=== PATIENT | female | born 1950 | race African-American/Black ===

== ENCOUNTER 2020-10-12 12:23 | Inpatient (IN) | payer OTHER ==
[~2020-10-12] VITALS: Ht 167.6 cm; Wt 155.7 kg
[~2020-10-12 12:23] MED LIST: HYDR12.55 PO; LISI2.5T47 PO
[2020-10-12 13:45] LABS: Eosinophils # (auto) 0 10 ^3/uL (0-0.8); Hematocrit 16.7 % (36.0-46.0); White Blood Cell 7.1 10^3/uL (4.4-10.8)
[2020-10-12 13:48] LABS: Basophils # (auto) 0 10 ^3/uL (0-0.2); Basophils % (auto) 0.7 % (0.0-2.0); Eosinophils % (auto) 0.2 % (0.0-7.0); Lymphocytes # (auto) 0.5 10 ^3/uL (0.4-5.4); Lymphocytes % (auto) 7.4 % (10.0-50.0); Mean Corpuscular Hgb Conc. 25.8 g/dL (32.0-36.0); Mean Corpuscular Volume 54.2 fL (80.0-100.0); Monocytes # (auto) 0.6 10 ^3/uL (0-1.3); Monocytes % (auto) 8.8 % (0.0-12.0); Neutrophils # (auto) 5.9 10 ^3/uL (1.6-8.6); Neutrophils % (auto) 82.9 % (37.0-80.0); Platelet Count (auto) 271 10^3/uL (140-450); Red Blood Cells 3.08 10^6/uL (4.0-5.20)
[2020-10-12 13:50] LABS: Nucleated Red Blood Cells % 4.1 %
[2020-10-12 13:51] LABS: Red Cell Distribution Width 22.7 % (11.8-14.3)
[2020-10-12 13:53] LABS: Hemoglobin 4.3 g/dL (12.2-16.2)
[2020-10-12 14:04] LABS: INR 1.25 (0.9-1.15)
[2020-10-12 14:05] LABS: Albumin 2.8 g/dL (3.4-5.0); Calcium 8.1 mg/dL (8.5-10.1); Magnesium 2.1 mg/dL (1.6-2.6); Potassium 3.3 mmol/L (3.5-5.1)
[2020-10-12 14:11] LABS: BUN/Creatinine Ratio 9.3; Total Protein 6.4 g/dL (6.4-8.2)
[2020-10-12 14:39] LABS: Basophils # (auto) 0.1 10 ^3/uL (0-0.2); Eosinophils # (auto) 0 10 ^3/uL (0-0.8); Eosinophils % (auto) 0.2 % (0.0-7.0); Monocytes # (auto) 0.8 10 ^3/uL (0-1.3); White Blood Cell 8.7 10^3/uL (4.4-10.8)
[2020-10-12 14:41] LABS: Basophils % (auto) 0.9 % (0.0-2.0); Lymphocytes # (auto) 1.3 10 ^3/uL (0.4-5.4); Lymphocytes % (auto) 15.2 % (10.0-50.0); Mean Corpuscular Hemoglobin 14.7 pg (28.0-32.0); Mean Corpuscular Hgb Conc. 27.1 g/dL (32.0-36.0); Mean Corpuscular Volume 54.4 fL (80.0-100.0); Monocytes % (auto) 9.1 % (0.0-12.0); Neutrophils # (auto) 6.5 10 ^3/uL (1.6-8.6); Neutrophils % (auto) 74.6 % (37.0-80.0); Nucleated Red Blood Cells % 0.9 %; Platelet Count (auto) 289 10^3/uL (140-450); Red Blood Cells 3.31 10^6/uL (4.0-5.20)
[2020-10-12 14:43] LABS: Red Cell Distribution Width 22.5 % (11.8-14.3)
[2020-10-12 14:48] LABS: Hemoglobin 4.9 g/dL (12.2-16.2)
[2020-10-12] MEDS ORDERED: HYDROcodone-ACET 10/325MG TAB PO ONE (16:45)
[2020-10-12] MEDS ORDERED: ONDANSETRON HCL 4 MG/2 ML VIAL IV PRN (19:00)
[2020-10-12] MEDS ORDERED: NITROGLYCERIN 0.4 MG SL TAB SL PRN (19:00)
[2020-10-12] MEDS ORDERED: hydrALAZINE HCL 20 MG/ML VL IV PRN (19:00)
[2020-10-12] MEDS ORDERED: DOCUSATE SOD 100 MG CAP PO PRN (19:00)
[2020-10-12] MEDS ORDERED: FUROSEMIDE 20 MG/2 ML VIAL IV ONE (19:00)
[2020-10-12] MEDS ORDERED: MORPHINE SULF INJ 2 MG/ML SYRINGE 1ML IV PRN (19:00)
[2020-10-12] MEDS ORDERED: POTASSIUM CHL 20 Meq TABLET PO ONE (19:00)
[2020-10-12 19:34] LABS: Urine Bacteria FEW /hpf (None Seen); Urine Blood Negative /uL (Negative); Urine Hyaline Cast FEW /lpf (0 - 2); Urine Mucus FEW (None Seen); Urine Specific Gravity 1.017 (1.001-1.035); Urine WBC 1 /hpf (0 - 5)
[2020-10-12 20:21] VITALS: BP 149/81
[2020-10-12 20:40] VITALS: BP 159/79
[2020-10-12 21:33] LABS: % Iron Saturation 2.2 % (15-50)
[2020-10-12] MEDS: CARVEDILOL 3.125 MG TAB PO SCH ×2 (22:55→23:55)
[2020-10-12 23:28] VITALS: BP 137/75
[2020-10-12 23:45] VITALS: BP 149/64
[2020-10-13] VITALS (10 sets, daily range): BP systolic 113–157; BP diastolic 55–78
[2020-10-13] MEDS: MORPHINE SULF INJ 2 MG/ML SYRINGE 1ML IV PRN (02:18)
--- NOTE | 2020-10-13 03:33 | NUR ---
arrival note pt arrived via stretcher. pt transferred to hospital bed. pt attached to 4L mo. no complaints of pain at this time.
[2020-10-13] MEDS ORDERED: PNEUMOCOCCAL VACC POLYS 25 MCG/0.5 ML VIAL IM ONE (05:00)
[2020-10-13] MEDS ORDERED: LISI-646 PO (05:16)
[2020-10-13] MEDS ORDERED: ATO40T PO (05:17)
--- NOTE | 2020-10-13 07:00 | NUR ---
closing note pt resting in semi fowlers with eyes closed. no s/s of pain or distress. endorsed care to day shift RN.
--- NOTE | 2020-10-13 07:30 | NUR ---
Opening Shift Note RECEIVED REPORT FROM NOC RN. Assumed care of patient, awake and alert. PATIENT ON OXYGEN AT 2 LPM VIA NASAL CANNULA WITH no S/S of distress/SOB or pain. BED IN LOWEST, LOCKED POSITION WITH SIDERAILS UP x2 AND CALL LIGHT WITHIN REACH. Instructed on POC and to call for assist PRN, will continue to monitor for changes Q1hr and PRN.
[2020-10-13 08:45] LABS: Eosinophils # (auto) 0.1 10 ^3/uL (0-0.8); Mean Corpuscular Hemoglobin 16.7 pg (28.0-32.0); Mean Corpuscular Volume 60.8 fL (80.0-100.0); White Blood Cell 10.1 10^3/uL (4.4-10.8)
[2020-10-13 08:48] LABS: Basophils # (auto) 0.1 10 ^3/uL (0-0.2); Basophils % (auto) 0.5 % (0.0-2.0); Eosinophils % (auto) 0.5 % (0.0-7.0); Hematocrit 22.5 % (36.0-46.0); Lymphocytes # (auto) 0.8 10 ^3/uL (0.4-5.4); Lymphocytes % (auto) 8.4 % (10.0-50.0); Mean Corpuscular Hgb Conc. 27.4 g/dL (32.0-36.0); Monocytes # (auto) 0.9 10 ^3/uL (0-1.3); Monocytes % (auto) 8.8 % (0.0-12.0); Neutrophils # (auto) 8.3 10 ^3/uL (1.6-8.6); Neutrophils % (auto) 81.8 % (37.0-80.0); Nucleated Red Blood Cells % 0.1 %; Platelet Count (auto) 219 10^3/uL (140-450)
[2020-10-13 08:55] LABS: Red Cell Distribution Width 30.2 % (11.8-14.3)
[2020-10-13 08:56] LABS: Hemoglobin 6.2 g/dL (12.2-16.2)
--- NOTE | 2020-10-13 08:57 | NUR ---
CRITICAL LAB HGB 6.2
[2020-10-13 08:58] LABS: Calcium 8.3 mg/dL (8.5-10.1); Potassium 3.6 mmol/L (3.5-5.1)
[2020-10-13 09:05] LABS: BUN/Creatinine Ratio 9.4; Magnesium 2.4 mg/dL (1.6-2.6)
[2020-10-13] MEDS: PANTOPRAZOLE 40 MG/10 ML VIAL INJ IV SCH (10:15)
[2020-10-13] MEDS: CARVEDILOL 3.125 MG TAB PO SCH ×2 (10:15→22:59)
--- NOTE | 2020-10-13 10:25 | NUR ---
YANELI BAJWA AT BEDSIDE.
--- NOTE | 2020-10-13 10:30 | NUR ---
YANELI BAJWA AWARE OF CRITICAL LAB VALUE.
[2020-10-13] MEDS ORDERED: HYOSCYAMINE SULF 0.125 MG ODT TAB PO PRN (11:15)
[2020-10-13] MEDS: HYDROcodone-ACET 5/325MG TAB PO PRN (14:41)
--- NOTE | 2020-10-13 14:42 | NUR ---
REPORT CALLED TO MACEY SILVA.
--- NOTE | 2020-10-13 14:45 | NUR ---
PATIENT TRANSFERRED TO [facility] BY KD TORRES RN AND MACEY MCLEAN.
--- NOTE | 2020-10-13 14:50 | NUR ---
Received patient from [facility] Patient received from [facility] unit. Patient awake and alert. A/O X 4. Vitals 98.6, HR 79, RR 16, BP 131/60, O2 99%. Upper lobes sound clear while bilateral lower lobes are diminished. Skin is in tact but right side of the body is swollen including arms, hands, legs and feet. Bowel sounds heard in the lower quadrants. Patient educated on the need for a stool sample and to call to use the bedpan. Rudolph in place, 700 mL noted. 1 unit hanging and running at 150mL/HR. No S/S of SOB or pain. Safety measures in place and the call light is within reach of the patient.
[2020-10-14 05:00] VITALS: BP 137/76
[2020-10-14 06:16] LABS: Basophils # (auto) 0 10 ^3/uL (0-0.2); Eosinophils # (auto) 0.1 10 ^3/uL (0-0.8); Eosinophils % (auto) 1.1 % (0.0-7.0); Hemoglobin 7.2 g/dL (12.2-16.2); Neutrophils # (auto) 8.3 10 ^3/uL (1.6-8.6); Red Cell Distribution Width 32.3 % (11.8-14.3); White Blood Cell 10.3 10^3/uL (4.4-10.8)
[2020-10-14 06:24] LABS: Basophils % (auto) 0.4 % (0.0-2.0); Lymphocytes # (auto) 0.9 10 ^3/uL (0.4-5.4); Mean Corpuscular Hemoglobin 17.8 pg (28.0-32.0); Mean Corpuscular Hgb Conc. 28.7 g/dL (32.0-36.0); Mean Corpuscular Volume 62.2 fL (80.0-100.0); Monocytes # (auto) 0.9 10 ^3/uL (0-1.3); Monocytes % (auto) 8.7 % (0.0-12.0); Neutrophils % (auto) 80.8 % (37.0-80.0); Nucleated Red Blood Cells % 0.1 %; Platelet Count (auto) 249 10^3/uL (140-450); Red Blood Cells 4.02 10^6/uL (4.0-5.20)
[2020-10-14 06:39] LABS: Potassium 3.5 mmol/L (3.5-5.1)
[2020-10-14 06:46] LABS: BUN/Creatinine Ratio 14.5; Calcium 8.1 mg/dL (8.5-10.1)
--- NOTE | 2020-10-14 07:23 | NUR ---
End of Shift Note Endorsed care to dayshift RN. At this time patient has no s/s of distress or SOB.
[2020-10-14 08:47] VITALS: BP 130/69
[2020-10-14] MEDS: CARVEDILOL 3.125 MG TAB PO SCH ×3 (09:51→21:43)
[2020-10-14] MEDS: PANTOPRAZOLE 40 MG/10 ML VIAL INJ IV SCH (09:51)
[2020-10-14] MEDS ORDERED: POTASSIUM CHL 20 Meq TABLET PO ONE (11:15)
[2020-10-14] MEDS ORDERED: FUROSEMIDE 20 MG/2 ML VIAL IV ONE (11:15)
[2020-10-14 11:36] LABS: Folate (Folic Acid) 3.1 ng/mL (5.38-24)
--- NOTE | 2020-10-14 11:39 | NUR ---
1130 10/14/20 I faxed transfer order and Notice Regarding Post Stabilization to [place]-document scanned into [employer]. I faxed today's labs, vitals, xrays and medication list to [place].
[2020-10-14] MEDS: HYDROcodone-ACET 5/325MG TAB PO PRN ×2 (12:08→18:29)
[2020-10-14 13:00] VITALS: BP 130/68
--- NOTE | 2020-10-14 15:48 | NUR ---
1545 10/14/20 I called [facility] and spoke with Scientific Publications Editor Jennifer, she said they did receive the transfer order and they are working on it. I provided her with contact information for Dr. Pickens and the nurse's station.
[2020-10-14 16:33] VITALS: BP 113/62
--- NOTE | 2020-10-14 17:24 | NUR ---
PER DANIELA, AUTOMOTIVE QUALITY ENGINEER AT [place], THERE ARE CURRENTLY NO BEDS AVAILABLE AT [facility] OR [facility]. WILL RE-EVAL TOMORROW 10/15/2020.
[2020-10-14] MEDS: ACETAMINOPHEN 500 MG TAB PO PRN (21:43)
[2020-10-14 22:00] VITALS: BP 124/61
[2020-10-15] MEDS: HYDROcodone-ACET 5/325MG TAB PO PRN ×3 (00:30→21:53)
[2020-10-15 05:00] VITALS: BP 136/72
--- NOTE | 2020-10-15 07:09 | NUR ---
ASSUMED CARE OF PATIENT AWAKE AND ALERT. RESPIRATIONS EVEN AND UNLABORED AT THIS TIME. UPDATED PATIENT ON PLAN OF CARE AND TO CALL FOR ASSISTANCE IF NEEDED. SIDE RAILS UP X 2, HOB ELEVATED AT LEAST 30 DEGREES, CALL LIGHT IS WITHIN REACH AND BED LOCKED IN LOWEST POSITION.
[2020-10-15 07:15] LABS: Basophils # (auto) 0.1 10 ^3/uL (0-0.2)
[2020-10-15 07:19] LABS: Basophils % (auto) 0.9 % (0.0-2.0); Eosinophils # (auto) 0.2 10 ^3/uL (0-0.8); Eosinophils % (auto) 2.3 % (0.0-7.0); Hematocrit 24.6 % (36.0-46.0); Hemoglobin 7.2 g/dL (12.2-16.2); Lymphocytes # (auto) 1.5 10 ^3/uL (0.4-5.4); Lymphocytes % (auto) 14.4 % (10.0-50.0); Mean Corpuscular Hemoglobin 18.2 pg (28.0-32.0); Mean Corpuscular Hgb Conc. 29.3 g/dL (32.0-36.0); Mean Corpuscular Volume 62.1 fL (80.0-100.0); Monocytes % (auto) 9.6 % (0.0-12.0); Neutrophils # (auto) 7.5 10 ^3/uL (1.6-8.6); Neutrophils % (auto) 72.8 % (37.0-80.0); Nucleated Red Blood Cells % 0.1 %; Platelet Count (auto) 260 10^3/uL (140-450); Red Blood Cells 3.97 10^6/uL (4.0-5.20); White Blood Cell 10.3 10^3/uL (4.4-10.8)
[2020-10-15 07:28] LABS: Red Cell Distribution Width 32.8 % (11.8-14.3)
[2020-10-15 07:35] LABS: Potassium 3.5 mmol/L (3.5-5.1)
[2020-10-15 07:47] LABS: BUN/Creatinine Ratio 14.9; Calcium 7.7 mg/dL (8.5-10.1)
[2020-10-15 09:17] VITALS: BP 112/72
[2020-10-15] MEDS: CARVEDILOL 3.125 MG TAB PO SCH ×2 (09:35→21:52)
[2020-10-15] MEDS: PANTOPRAZOLE 40 MG/10 ML VIAL INJ IV SCH (09:35)
--- NOTE | 2020-10-15 11:40 | NUR ---
MD ROUNDS WITH DR QUINTANILLA. ORDERS RECEIVED TO OBTAIN PHYSICAL THERAPY FOR THIS PATIENT.
[2020-10-15 13:00] VITALS: BP 128/66
--- NOTE | 2020-10-15 13:09 | NUR ---
1300 10/15/20 I faxed transfer order (per Dr. Pickens patient stable for transfer today) and Notice Regarding Post Stabilization to [place]-documents scanned into [employer]. I faxed today's labs, vitals and medication list to [place].
--- NOTE | 2020-10-15 16:11 | NUR ---
1600 10/15/20 I called [facility] to request an update on the status of the transfer request-I was left on hold for more than 10 minutes-unable to speak with a live person, unable to leave a message (called twice earlier today-was left on hold for more than 10 minutes each time-unable to speak with a live person or leave a message).
[2020-10-15 16:48] VITALS: BP 135/70
--- NOTE | 2020-10-15 19:29 | NUR ---
ENDORSED CARE TO NOC SHIFT RN
--- NOTE | 2020-10-15 19:30 | NUR ---
Opening Shift Note Assumed care of patient, awake and alert. No S/S of distress/SOB or pain. Insructed on POC and to callfor assist PRN, will continue to monitor for changes Q1hr and PRN. Fall and safety precautions in place. Call light within reach
[2020-10-15 22:00] VITALS: BP 135/74
[2020-10-16 05:11] VITALS: BP 131/65
[2020-10-16] MEDS: ACETAMINOPHEN 500 MG TAB PO PRN (05:35)
[2020-10-16] MEDS: HYDROcodone-ACET 5/325MG TAB PO PRN ×3 (05:35→21:59)
[2020-10-16 09:00] VITALS: BP 124/54
[2020-10-16] MEDS: CARVEDILOL 3.125 MG TAB PO SCH ×2 (09:06→21:58)
[2020-10-16] MEDS: PANTOPRAZOLE 40 MG/10 ML VIAL INJ IV SCH (09:06)
[2020-10-16] MEDS: MORPHINE SULF INJ 2 MG/ML SYRINGE 1ML IV PRN ×3 (09:15→18:34)
[2020-10-16 09:25] LABS: Basophils # (auto) 0 10 ^3/uL (0-0.2); Eosinophils # (auto) 0.3 10 ^3/uL (0-0.8); Mean Corpuscular Volume 62.4 fL (80.0-100.0); Monocytes # (auto) 0.9 10 ^3/uL (0-1.3); Red Blood Cells 4.13 10^6/uL (4.0-5.20)
[2020-10-16 09:27] LABS: Basophils % (auto) 0.5 % (0.0-2.0); Eosinophils % (auto) 2.9 % (0.0-7.0); Hematocrit 25.7 % (36.0-46.0); Hemoglobin 7.3 g/dL (12.2-16.2); Lymphocytes # (auto) 1.5 10 ^3/uL (0.4-5.4); Lymphocytes % (auto) 14.2 % (10.0-50.0); Mean Corpuscular Hemoglobin 17.7 pg (28.0-32.0); Mean Corpuscular Hgb Conc. 28.4 g/dL (32.0-36.0); Monocytes % (auto) 8.8 % (0.0-12.0); Neutrophils # (auto) 7.6 10 ^3/uL (1.6-8.6); Neutrophils % (auto) 73.6 % (37.0-80.0); Platelet Count (auto) 279 10^3/uL (140-450); White Blood Cell 10.3 10^3/uL (4.4-10.8)
[2020-10-16 09:45] LABS: Red Cell Distribution Width 33.6 % (11.8-14.3)
[2020-10-16] MEDS ORDERED: levoFLOXacin 500MG 100 ML IV ONE (10:30)
[2020-10-16] MEDS ORDERED: SODIUM FERR GLUC 62.5MG/5ML 125 MG in SODIUM CHL 0.9% 100 ML IV ONE (10:30)
--- NOTE | 2020-10-16 10:30 | NUR ---
Dr. Pickens at bedside Dr. Pickens at bedside, updated on POC. New orders received, will carry out.
--- NOTE | 2020-10-16 10:33 | NUR ---
Dr. Knox at bedside Dr. Knox at bedside, updated on POC.
[2020-10-16] MEDS ORDERED: FUROSEMIDE 20 MG TAB PO ONE (10:45)
[2020-10-16] MEDS ORDERED: POTASSIUM CHL 10 Meq TABLET PO ONE (10:45)
[2020-10-16 12:39] VITALS: BP 121/66
--- NOTE | 2020-10-16 12:57 | NUR ---
Nutrition Assessment Notes Please refer to link for full assessment notes. Est Energy needs: 7449-5224 kcals (12-15 kcal/kgBW) Est Protein needs: 118-148 gms/day (2.0-2.5 gm/kgIBW of 59kg) Will continue to monitor and reassess prn. Addendum: 10/16/20 at [address]án[address] Amended: Links added.
[2020-10-16] MEDS: SODIUM FERR GLUC 62.5MG/5ML 125 MG in SODIUM CHL 0.9% 100 ML IV SCH (13:45)
--- NOTE | 2020-10-16 14:42 | NUR ---
1430 10/16/20 I spoke with [employer] Implementation Analyst Jennifer and requested that authorization be provided for patient's continued stay. Per Jennifer inpatient authorization is extended until 10/17/20 1000-she will have the updated authorization faxed over. Per Jennifer, they have no beds available at [facility] or [facility]. I made Jennifer aware that patient will be having an EGD tomorrow-she said that anything that is medically necessary will be authorized.
[2020-10-16 16:58] VITALS: BP 120/71
[2020-10-16 22:00] VITALS: BP 120/65
[2020-10-17] MEDS: MORPHINE SULF INJ 2 MG/ML SYRINGE 1ML IV PRN ×3 (02:44→16:03)
[2020-10-17 05:19] VITALS: BP 130/58
[2020-10-17 07:28] LABS: Basophils # (auto) 0 10 ^3/uL (0-0.2); Hemoglobin 7.2 g/dL (12.2-16.2); Monocytes # (auto) 0.8 10 ^3/uL (0-1.3); Monocytes % (auto) 8.3 % (0.0-12.0)
[2020-10-17 07:31] LABS: Basophils % (auto) 0.5 % (0.0-2.0); Eosinophils # (auto) 0.3 10 ^3/uL (0-0.8); Hematocrit 25.7 % (36.0-46.0); Lymphocytes # (auto) 1.1 10 ^3/uL (0.4-5.4); Lymphocytes % (auto) 10.9 % (10.0-50.0); Mean Corpuscular Hemoglobin 17.5 pg (28.0-32.0); Mean Corpuscular Volume 62.4 fL (80.0-100.0); Neutrophils # (auto) 7.8 10 ^3/uL (1.6-8.6); Neutrophils % (auto) 77.3 % (37.0-80.0); Platelet Count (auto) 277 10^3/uL (140-450); Red Blood Cells 4.12 10^6/uL (4.0-5.20)
[2020-10-17 07:48] LABS: Red Cell Distribution Width 33.2 % (11.8-14.3)
[2020-10-17 07:57] LABS: INR 1.17 (0.9-1.15); Partial Thromboplastin Time 24.5 sec (23.0-31.2)
[2020-10-17 08:00] VITALS: BP 152/63
--- NOTE | 2020-10-17 08:40 | NUR ---
IV insertion IV access obtained, via clean sterile technique by inserting 22 gauge catheter to the right hand after 1 attempt. IV secured properly. No trauma to site. Patient tolerated well.
--- NOTE | 2020-10-17 08:50 | NUR ---
Patient off floor for EGD
[2020-10-17 09:00] VITALS: BP 152/63
[2020-10-17] MEDS ORDERED: SODIUM CHLORIDE LOCK 10 ML ONE (09:25)
[2020-10-17] MEDS ORDERED: LIDOCAINE VISCOUS 2% 15ML UD ONE (09:25)
[2020-10-17] MEDS ORDERED: diphenhdrAMINE HCL 50 MG/1 ML VL ONE (09:26)
[2020-10-17] MEDS: MIDAZOLAM HCL 5 MG/ML-1ML VIAL ONE ×2 (09:35→09:38)
[2020-10-17] MEDS: fentaNYL CITRATE 100 MCG/2 ML VL ONE ×2 (09:35→09:38)
--- NOTE | 2020-10-17 10:18 | NUR ---
Patient back to room from EGD. Patient resting comfortably, no complaints of pain. VS: 158/78, 98.8, 83, 21, 100%. Will continue to monitor
[2020-10-17] MEDS: levoFLOXacin 500MG 100 ML IV SCH (10:46)
[2020-10-17] MEDS: PANTOPRAZOLE 40 MG/10 ML VIAL INJ IV SCH (10:47)
[2020-10-17] MEDS: CARVEDILOL 3.125 MG TAB PO SCH ×2 (10:48→21:21)
[2020-10-17] MEDS: FUROSEMIDE 20 MG TAB PO SCH (10:48)
[2020-10-17] MEDS: POTASSIUM CHL 10 Meq TABLET PO SCH (10:48)
[2020-10-17] MEDS: SODIUM FERR GLUC 62.5MG/5ML 125 MG in SODIUM CHL 0.9% 100 ML IV SCH (12:10)
[2020-10-17 13:00] VITALS: BP 146/69
--- NOTE | 2020-10-17 13:40 | NUR ---
Dr Pickens bedside with patient discussing plan of care
[2020-10-17] MEDS ORDERED: POTASSIUM CHL 20 Meq TABLET PO ONE (13:45)
[2020-10-17] MEDS ORDERED: FUROSEMIDE 40 MG/4 ML VIAL IV ONE (13:45)
--- NOTE | 2020-10-17 14:20 | NUR ---
1420 10/17/20 I faxed transfer order and Notice Regarding Post Stabilization to [facility]-documents scanned into [employer]. I faxed today's EGD report, labs, vitals and medication list to [facility].
--- NOTE | 2020-10-17 16:37 | NUR ---
1630 10/17/20 I spoke with [facility] Big Data Hadoop Developer Angelic, she said they received the transfer order and will be working on it. I provided her with contact information for Dr. Pickens as well as the nurse's station.
[2020-10-17 17:00] VITALS: BP 119/67
--- NOTE | 2020-10-17 18:05 | NUR ---
Morillo catheter dc'd Order to discontinue morillo catheter received from Dr Pickens. Morillo dc'd with clean technique following deflation of balloon. Patient tolerated well with no complaints of pain. Continue care.
--- NOTE | 2020-10-17 19:30 | NUR ---
Opening Shift Note Assumed care of patient, awake and alert. No S/S of distress/SOB or pain. Insructed on POC and to callfor assist PRN, will continue to monitor for changes Q1hr and PRN. Fall and safety precautions in place. Call light within reach Patient taken off bedpan at this time. Patient was cleaned of urine and stool. Tolerated well, repositioned for comfort. Will continue to monitor
[2020-10-17] MEDS: HYDROcodone-ACET 5/325MG TAB PO PRN (20:14)
--- NOTE | 2020-10-17 20:40 | NUR ---
IV insertion IV access obtained, via clean sterile technique by inserting 22 gauge catheter at right hand after second attempt. IV secured properly. No trauma to site. Patient tolerated well. IV removal IV DC'd with clean sterile technique, catheter fully intact. Pressure dressing applied to site. Patient tolerated well. NOTE: right hand 22g removed due to infiltration
[2020-10-17 22:00] VITALS: BP 143/69
[2020-10-18 05:00] VITALS: BP 146/73
--- NOTE | 2020-10-18 08:00 | NUR ---
Morning note Patient resting in bed with even and unlabored respirations on room air, no distress noted. Instructed patient on POC, fall precautions, pressure injury prevention, and to call for assistance as needed. Patient verbalized understanding. Fall precautions in place with call light within reach.
[2020-10-18 08:28] LABS: Eosinophils # (auto) 0.2 10 ^3/uL (0-0.8); Eosinophils % (auto) 2.7 % (0.0-7.0); Hemoglobin 7.5 g/dL (12.2-16.2); Mean Corpuscular Volume 64.1 fL (80.0-100.0); Monocytes # (auto) 0.9 10 ^3/uL (0-1.3); Nucleated Red Blood Cells % 0.1 %
[2020-10-18 08:30] LABS: Basophils # (auto) 0.1 10 ^3/uL (0-0.2); Basophils % (auto) 0.9 % (0.0-2.0); Hematocrit 27.2 % (36.0-46.0); Lymphocytes % (auto) 12.3 % (10.0-50.0); Mean Corpuscular Hemoglobin 17.7 pg (28.0-32.0); Mean Corpuscular Hgb Conc. 27.6 g/dL (32.0-36.0); Monocytes % (auto) 10.8 % (0.0-12.0); Neutrophils # (auto) 6.1 10 ^3/uL (1.6-8.6); Neutrophils % (auto) 73.3 % (37.0-80.0); Platelet Count (auto) 238 10^3/uL (140-450); Red Blood Cells 4.24 10^6/uL (4.0-5.20); White Blood Cell 8.3 10^3/uL (4.4-10.8)
[2020-10-18 08:43] LABS: BUN/Creatinine Ratio 12.9; Calcium 8.2 mg/dL (8.5-10.1); Potassium 3.3 mmol/L (3.5-5.1)
[2020-10-18 08:48] LABS: Red Cell Distribution Width 33.1 % (11.8-14.3)
[2020-10-18 09:00] VITALS: BP 131/60
[2020-10-18] MEDS: MORPHINE SULF INJ 2 MG/ML SYRINGE 1ML IV PRN (11:17)
[2020-10-18] MEDS: PANTOPRAZOLE 40 MG/10 ML VIAL INJ IV SCH (11:21)
[2020-10-18] MEDS: FUROSEMIDE 20 MG TAB PO SCH (11:22)
[2020-10-18] MEDS: CARVEDILOL 3.125 MG TAB PO SCH (11:22)
[2020-10-18] MEDS: POTASSIUM CHL 10 Meq TABLET PO SCH (11:22)
[2020-10-18] MEDS: levoFLOXacin 500MG 100 ML IV SCH (11:28)
[2020-10-18 13:00] VITALS: BP 138/68
[2020-10-18] MEDS: SODIUM FERR GLUC 62.5MG/5ML 125 MG in SODIUM CHL 0.9% 100 ML IV SCH ×2 (13:06→13:15)
--- NOTE | 2020-10-18 13:18 | NUR ---
RE: Iron IV Medication non-administered d/t IV infiltration. Patient is discharged and refused a new IV.
--- NOTE | 2020-10-18 13:18 | NUR ---
IV removed IV removed to the [facility] d/t infiltration. IV removed with aseptic technique, catheter intact. Dressing applied. Patient tolerated well, no trauma to site. Patient refused new IV d/t discharge order.
--- NOTE | 2020-10-18 14:35 | NUR ---
RE: Vaccination Patient refused PNA vaccination. Patient stated "I changed my mind. I will get it from [facility]."
--- NOTE | 2020-10-18 14:43 | NUR ---
Discharged Discharge education and paperwork provided to the patient per MD order. Patient verbalized understanding. Respirations even and unlabored on room air, no distress noted. Patient transferred self to wheelchair with contact guard assistance from staff member. Patient transferred to private vehicle via wheelchair accompanied by staff member. Patients home medications returned to the patient.
== END 2020-10-18 14:45 | disposition home or self-care (01) | DRG 291 ==
LOC: EDBD 12:23 → ER 12:23 → TELE 18:49 → TELE-EAST 10-13 03:40 → TELE-CENTR 10-13 14:39 → CENTRAL 10-13 14:57 → TELE-CENTR 10-13 15:10
PROVIDERS: ADMIT Nurse Practitioner Acute Care; ATTEND Internal Medicine
PROC: 30233N1 Transfusion of Nonautologous Red Blood Cells into Peripheral Vein, Percutaneous Approach (ICD-10-PCS; principal; 2020-10-12)
PROC: 0DB68ZX Excision of Stomach, Via Natural or Artificial Opening Endoscopic, Diagnostic (ICD-10-PCS; 2020-10-17)
DX: I11.0 Hypertensive heart disease with heart failure (principal); J96.00 Acute respiratory failure, unspecified whether with hypoxia or hypercapnia; J18.9 Pneumonia, unspecified organism; Z68.43 Body mass index [BMI] 50.0-59.9, adult; I50.43 Acute on chronic combined systolic (congestive) and diastolic (congestive) heart failure; K29.70 Gastritis, unspecified, without bleeding; E66.01 Morbid (severe) obesity due to excess calories; E87.6 Hypokalemia; E88.09 Other disorders of plasma-protein metabolism, not elsewhere classified; D50.9 Iron deficiency anemia, unspecified; K44.9 Diaphragmatic hernia without obstruction or gangrene; Z20.828 Contact with and (suspected) exposure to other viral communicable diseases; Z79.899 Other long term (current) drug therapy; Z90.49 Acquired absence of other specified parts of digestive tract; Z90.710 Acquired absence of both cervix and uterus; Z91.14 Patient's other noncompliance with medication regimen
CPT/HCPCS: 36415; 43239; 51702; 71045; 74176; 80048; 80053; 80061; 81001; 82150; 82270; 82607; 82746; 83540; 83550; 83690; 83735; 83880; 84443; 85025; 85379; 85610; 85730; 86850; 86870; 86900; 86901; 86902; 86922; 87426; 93005; 93306; 93970; 96374; 99291; C9113; G0378; J1956; J2250; J2405

== ENCOUNTER 2024-05-03 09:36 | Emergency (ER) | payer MEDICARE, MEDICAID ==
[~2024-05-03] VITALS: Ht 167.6 cm; Wt 132.7 kg
[~2024-05-03 09:36] MED LIST changes: +ATOR-507 PO; +LISI20TA56 PO
[2024-05-03] MEDS ORDERED: LISI10TA34 PO (12:01)
[2024-05-03] MEDS ORDERED: HYDR-4902 PO (12:01)
[2024-05-03 12:13] VITALS: BP 149/69; PULSE 87; RESP 16; TEMP 98.4; O2SAT 100
== END 2024-05-03 12:20 | disposition home or self-care (01) ==
LOC: ER 09:36
DX: G89.29 Other chronic pain (principal); M25.532 Pain in left wrist; M25.531 Pain in right wrist; M25.512 Pain in left shoulder; M25.511 Pain in right shoulder; E78.5 Hyperlipidemia, unspecified; I10 Essential (primary) hypertension; Z90.49 Acquired absence of other specified parts of digestive tract; Z90.710 Acquired absence of both cervix and uterus; Z76.0 Encounter for issue of repeat prescription

== ENCOUNTER 2024-06-12 13:39 | Emergency (ER) | payer MEDICAID ==
[~2024-06-12] VITALS: Ht 167.6 cm; Wt 132.0 kg
[~2024-06-12 13:39] MED LIST changes: +HYDR-4902 PO; +LISI10TA34 PO
[2024-06-12] MEDS ORDERED: PANT40TA2 PO (14:14)
[2024-06-12] MEDS ORDERED: ATOR-507 PO (14:14)
[2024-06-12] MEDS ORDERED: HYDR-4902 PO (14:14)
[2024-06-12] MEDS ORDERED: LISI10TA34 PO (14:14)
[2024-06-12] MEDS: HYDROcodone-ACET 10/325MG TAB PO ONE (15:45)
[2024-06-12 15:55] VITALS: BP 151/62; PULSE 91; RESP 16; O2SAT 99
== END 2024-06-12 17:50 | disposition home or self-care (01) ==
LOC: ER 13:39
DX: M19.90 Unspecified osteoarthritis, unspecified site (principal); M79.10 Myalgia, unspecified site; K21.9 Gastro-esophageal reflux disease without esophagitis; E78.5 Hyperlipidemia, unspecified; I10 Essential (primary) hypertension; Z79.891 Long term (current) use of opiate analgesic; Z79.1 Long term (current) use of non-steroidal anti-inflammatories (NSAID); Z79.899 Other long term (current) drug therapy; Z90.49 Acquired absence of other specified parts of digestive tract; Z90.710 Acquired absence of both cervix and uterus; Z98.890 Other specified postprocedural states

== ENCOUNTER 2024-07-07 09:42 | Inpatient (IN) | payer MEDICARE, MEDICAID ==
[~2024-07-07] VITALS: Ht 167.6 cm; Wt 111.1 kg
[~2024-07-07 09:42] MED LIST changes: +PANT40TA2 PO
[2024-07-07] MEDS: LIDOCAINE 5% TOPICAL PATCH TOP ONE ×2 (10:15→12:00)
[2024-07-07 10:47] LABS: Basophils # (auto) 0.1 10 ^3/uL (0-0.2); Eosinophils # (auto) 0.1 10 ^3/uL (0-0.8); Lymphocytes # (auto) 1.1 10 ^3/uL (0.4-5.4); Monocytes # (auto) 0.9 10 ^3/uL (0-1.3)
[2024-07-07 10:49] LABS: Basophils % (auto) 1.1 % (0.0-2.0); Eosinophils % (auto) 0.7 % (0.0-7.0); Hematocrit 23.2 % (36.0-46.0); Lymphocytes % (auto) 12.2 % (10.0-50.0); Mean Corpuscular Hemoglobin 14.6 pg (28.0-32.0); Mean Corpuscular Hgb Conc. 27.1 g/dL (32.0-36.0); Monocytes % (auto) 9.9 % (0.0-12.0); Neutrophils # (auto) 6.8 10 ^3/uL (1.6-8.6); Neutrophils % (auto) 76.1 % (37.0-80.0); Platelet Count (auto) 361 10^3/uL (140-450)
[2024-07-07 10:58] LABS: Hemoglobin 6.3 g/dL (12.2-16.2); Red Cell Distribution Width 21.2 % (11.8-14.3)
[2024-07-07 11:06] LABS: Anisocytosis Moderate; Hypochromia Marked; Platelet Estimate Adequate; Tear Drop Cells FEW
[2024-07-07 11:07] LABS: Polychromasia Slight
[2024-07-07 11:17] LABS: Alanine Aminotransferase 10 U/L (7-40); Albumin 3.2 g/dL (3.2-4.8); Alkaline Phosphatase 28 U/L (46-116); Anion Gap 6 (5-15); Aspartate Aminotransferase 23 U/L (13-40); BUN/Creatinine Ratio 15.3 (10.0-20.0); Blood Urea Nitrogen 9 mg/dL (9-23); Calcium 8.6 mg/dL (8.7-10.4); Carbon Dioxide 28 mmol/L (20-30); Chloride 105 mmol/L (98-107); Glucose 94 mg/dL (74-106); Potassium 3.3 mmol/L (3.5-5.1); Sodium 139 mmol/L (136-145)
[2024-07-07 11:18] LABS: Bilirubin, Total 0.7 mg/dL (0.2-1.0); Total Protein 6.1 g/dL (5.7-8.2)
[2024-07-07 11:30] VITALS: PULSE 94; RESP 15; O2SAT 100
[2024-07-07] MEDS: NAPROXEN 500 MG TAB PO ONE (11:48)
[2024-07-07] MEDS: HYDROcodone-ACET 5/325MG TAB PO ONE (11:49)
[2024-07-07 12:09] LABS: % Iron Saturation 4.1 % (15-50)
[2024-07-07 12:50] LABS: Ferritin 2.6 ng/mL (10-291); Folate (Folic Acid) 8.52 ng/mL (>5.38)
[2024-07-07] MEDS ORDERED: SENN1TAB49 PO (15:37)
[2024-07-07] MEDS ORDERED: POLY335015 PO (15:37)
[2024-07-07] MEDS: POTASSIUM EFFERVESENT TAB 25 MEQ PO ONE (15:45)
[2024-07-07] MEDS ORDERED: NITROGLYCERIN 0.4 MG SL TAB SL PRN (15:45)
[2024-07-07] MEDS: FUROSEMIDE 20 MG/2 ML VIAL IV ONE (15:45)
[2024-07-07] MEDS ORDERED: MORPHINE SULFATE INJ 2 MG/ml SYRG IV PRN (15:45)
[2024-07-07 16:19] LABS: Magnesium 1.8 mg/dL (1.6-2.6)
[2024-07-07 18:28] LABS: Urine Bacteria FEW /hpf (None Seen); Urine Blood TRACE /uL (Negative); Urine Clarity Turbid (Clear); Urine Color Light-Orange (Yellow); Urine Mucus FEW (None Seen); Urine Protein, UAD TRACE (Negative); Urine Specific Gravity 1.019 (1.001-1.035); Urine Urobilinogen 12 mg/dL (Negative); Urine WBC 166 /hpf (0 - 5)
[2024-07-07 19:15] VITALS: PULSE 81; RESP 15; O2SAT 100
[2024-07-07] MEDS: ATORVASTATIN 20 MG TAB PO SCH (20:53)
[2024-07-07] MEDS: SENNOSIDES DOCUSATE SODIUM PO SCH (20:53)
[2024-07-07] MEDS: HYDROcodone-ACET 5/325MG TAB PO PRN (21:07)
[2024-07-07 21:45] VITALS: BP 137/56; PULSE 90; RESP 20; TEMP 98.5
[2024-07-07 22:00] VITALS: BP 134/57; PULSE 91; RESP 16; TEMP 98.5
[2024-07-07 22:15] VITALS: BP 144/56; PULSE 83; RESP 17; TEMP 98.5
[2024-07-07 23:35] VITALS: BP 148/62; PULSE 99; RESP 20; TEMP 98.3; O2SAT 100
[2024-07-08] VITALS (14 sets, daily range): BP systolic 134–155; BP diastolic 6–72; PULSE 81–99; RESP 16–20; TEMP 97–98.7; O2SAT 97–100
[2024-07-08] MEDS: ACETAMINOPHEN 325 MG TAB PO PRN (01:19)
[2024-07-08] MEDS ORDERED: PNEUMOCOCCAL VACC POLYS 25 MCG/0.5 ML VIAL IM ONE (03:30)
[2024-07-08 07:33] LABS: Basophils # (auto) 0.1 10 ^3/uL (0-0.2); Eosinophils # (auto) 0.2 10 ^3/uL (0-0.8); Hemoglobin 7.9 g/dL (12.2-16.2); Neutrophils # (auto) 4.6 10 ^3/uL (1.6-8.6); Nucleated Red Blood Cells % 0.1 %; White Blood Cell 6.8 10^3/uL (4.4-10.8)
[2024-07-08 07:35] LABS: Basophils % (auto) 0.8 % (0.0-2.0); Eosinophils % (auto) 3.4 % (0.0-7.0); Hematocrit 27.1 % (36.0-46.0); Lymphocytes # (auto) 1.1 10 ^3/uL (0.4-5.4); Lymphocytes % (auto) 16.1 % (10.0-50.0); Mean Corpuscular Hemoglobin 17.1 pg (28.0-32.0); Mean Corpuscular Hgb Conc. 29.2 g/dL (32.0-36.0); Mean Corpuscular Volume 58.6 fL (80.0-100.0); Monocytes # (auto) 0.8 10 ^3/uL (0-1.3); Monocytes % (auto) 11.4 % (0.0-12.0); Neutrophils % (auto) 68.3 % (37.0-80.0); Platelet Count (auto) 303 10^3/uL (140-450); Red Blood Cells 4.62 10^6/uL (4.0-5.20)
[2024-07-08 07:50] LABS: Alkaline Phosphatase 27 U/L (46-116); Anion Gap 5 (5-15); Aspartate Aminotransferase 18 U/L (13-40); BUN/Creatinine Ratio 15.8 (10.0-20.0); Blood Urea Nitrogen 9 mg/dL (9-23); Calcium 8.3 mg/dL (8.7-10.4); Carbon Dioxide 30 mmol/L (20-30); Chloride 105 mmol/L (98-107); Glucose 91 mg/dL (74-106); Potassium 3.4 mmol/L (3.5-5.1); Sodium 140 mmol/L (136-145)
[2024-07-08 07:51] LABS: Alanine Aminotransferase < 9 U/L (7-40); Bilirubin, Total 0.9 mg/dL (0.2-1.0); Total Protein 5.7 g/dL (5.7-8.2)
[2024-07-08 07:54] LABS: Anisocytosis Marked
[2024-07-08 07:55] LABS: Hypochromia Marked; Platelet Estimate Adequate; Polychromasia Slight; Tear Drop Cells FEW
[2024-07-08] MEDS: POLYETHYLENE GLYCOL 17 GM PWDR PO SCH (08:54)
[2024-07-08] MEDS: PANTOPRAZOLE 40 MG/10 ML VIAL INJ IV SCH ×2 (08:54→21:22)
[2024-07-08] MEDS: FUROSEMIDE 20 MG/2 ML VIAL IV SCH (08:55)
[2024-07-08] MEDS: LISINOPRIL 20 MG TAB PO SCH (08:56)
[2024-07-08] MEDS: cefTRIAXone 1GM/50ML D5W 50 ML IV SCH (08:59)
[2024-07-08] MEDS: POTASSIUM CHL 20 Meq TABLET PO ONE (09:16)
[2024-07-08] MEDS ORDERED: PANTOPRAZOLE 40 MG TAB PO SCH (10:00)
[2024-07-08] MEDS: SODIUM FERR GLUC 62.5MG/5ML 110 ML IV SCH (11:59)
[2024-07-08 12:02] LABS: Hemoglobin 8.1 g/dL (12.2-16.2)
[2024-07-08 12:04] LABS: Hematocrit 28.3 % (36.0-46.0)
[2024-07-08 18:39] LABS: Hematocrit 27.1 % (36.0-46.0)
[2024-07-08 18:40] LABS: Hemoglobin 7.8 g/dL (12.2-16.2)
[2024-07-08] MEDS: LIDOCAINE 5% TOPICAL PATCH TOP ONE (19:12)
[2024-07-09] VITALS (7 sets, daily range): BP systolic 144–161; BP diastolic 62–75; PULSE 84–103; RESP 16–20; TEMP 97.7–98.6; O2SAT 96–99
[2024-07-09 06:58] LABS: Hemoglobin 7.6 g/dL (12.2-16.2); Red Cell Distribution Width 27.5 % (11.8-14.3)
[2024-07-09 07:03] LABS: Basophils # (auto) 0.1 10 ^3/uL (0-0.2); Basophils % (auto) 0.6 % (0.0-2.0); Eosinophils # (auto) 0.2 10 ^3/uL (0-0.8); Eosinophils % (auto) 2.1 % (0.0-7.0); Hematocrit 26.5 % (36.0-46.0); Lymphocytes # (auto) 1.1 10 ^3/uL (0.4-5.4); Lymphocytes % (auto) 9.7 % (10.0-50.0); Mean Corpuscular Hemoglobin 16.6 pg (28.0-32.0); Mean Corpuscular Hgb Conc. 28.6 g/dL (32.0-36.0); Mean Corpuscular Volume 58.1 fL (80.0-100.0); Monocytes % (auto) 8.9 % (0.0-12.0); Neutrophils # (auto) 9.1 10 ^3/uL (1.6-8.6); Neutrophils % (auto) 78.7 % (37.0-80.0); Nucleated Red Blood Cells % 0.1 %; Platelet Count (auto) 277 10^3/uL (140-450); Red Blood Cells 4.56 10^6/uL (4.0-5.20); White Blood Cell 11.6 10^3/uL (4.4-10.8)
[2024-07-09 07:12] LABS: Anion Gap 6 (5-15); Carbon Dioxide 29 mmol/L (20-30); Chloride 105 mmol/L (98-107); Potassium 3.3 mmol/L (3.5-5.1); Sodium 140 mmol/L (136-145)
[2024-07-09 07:13] LABS: Calcium 8.4 mg/dL (8.7-10.4)
[2024-07-09] MEDS ORDERED: GASTROGRAFIN 30 ML SOL ONE (07:15)
[2024-07-09 07:18] LABS: Blood Urea Nitrogen 8 mg/dL (9-23); Glucose 96 mg/dL (74-106)
[2024-07-09 08:15] LABS: Anisocytosis Moderate; Hypochromia Marked
[2024-07-09 08:16] LABS: Platelet Estimate Adequate; Polychromasia Slight; Tear Drop Cells FEW
[2024-07-09] MEDS: POTASSIUM CHL 20 Meq TABLET PO ONE (10:14)
[2024-07-10] VITALS (10 sets, daily range): BP systolic 139–159; BP diastolic 58–70; PULSE 83–103; RESP 14–20; TEMP 97.8–98.8; O2SAT 97–100
[2024-07-10 05:58] LABS: Basophils # (auto) 0.1 10 ^3/uL (0-0.2); Eosinophils # (auto) 0.3 10 ^3/uL (0-0.8); Hemoglobin 7.5 g/dL (12.2-16.2); Lymphocytes # (auto) 1.5 10 ^3/uL (0.4-5.4); Mean Corpuscular Volume 60.6 fL (80.0-100.0); Neutrophils # (auto) 7.2 10 ^3/uL (1.6-8.6)
[2024-07-10 06:02] LABS: Anion Gap 4 (5-15); Basophils % (auto) 0.7 % (0.0-2.0); Carbon Dioxide 29 mmol/L (20-30); Chloride 108 mmol/L (98-107); Eosinophils % (auto) 3.2 % (0.0-7.0); Hematocrit 26.6 % (36.0-46.0); Lymphocytes % (auto) 14.6 % (10.0-50.0); Monocytes % (auto) 9.6 % (0.0-12.0); Neutrophils % (auto) 71.9 % (37.0-80.0); Nucleated Red Blood Cells % 0.1 %; Platelet Count (auto) 272 10^3/uL (140-450); Potassium 3.9 mmol/L (3.5-5.1); Sodium 141 mmol/L (136-145)
[2024-07-10 06:03] LABS: Calcium 8.3 mg/dL (8.7-10.4)
[2024-07-10 06:06] LABS: Red Cell Distribution Width 27.7 % (11.8-14.3)
[2024-07-10 06:08] LABS: Glucose 93 mg/dL (74-106)
[2024-07-10 06:14] LABS: BUN/Creatinine Ratio 8.2 (10.0-20.0); Blood Urea Nitrogen < 5 mg/dL (9-23)
[2024-07-10 08:07] LABS: Anisocytosis Moderate; Hypochromia Marked
[2024-07-10 08:08] LABS: Platelet Estimate Adequate; Tear Drop Cells FEW
[2024-07-10] MEDS ORDERED: SODIUM CHLORIDE LOCK 10 ML ONE (10:49)
[2024-07-10] MEDS ORDERED: diphenhdrAMINE HCL 50 MG/1 ML VL ONE (10:50)
[2024-07-10] MEDS: LIDOCAINE VISCOUS 2% 15ML UD ONE (13:18)
[2024-07-10] MEDS: fentaNYL CITRATE 100 MCG/2 ML VL ONE (13:20)
[2024-07-10] MEDS: MIDAZOLAM HCL 5 MG/ML-1ML VIAL ONE (13:20)
[2024-07-10] MEDS: LACTULOSE 20Gm/30ML SOLN PO SCH (21:59)
[2024-07-10] MEDS: DOCUSATE SOD 100 MG CAP PO SCH (22:00)
[2024-07-11] VITALS (7 sets, daily range): BP systolic 136–155; BP diastolic 55–67; PULSE 72–93; RESP 17–18; TEMP 36.7; O2SAT 97–100
[2024-07-11 05:54] LABS: Anion Gap 6 (5-15); Carbon Dioxide 28 mmol/L (20-30); Chloride 108 mmol/L (98-107); Potassium 3.8 mmol/L (3.5-5.1); Sodium 142 mmol/L (136-145)
[2024-07-11 05:55] LABS: Calcium 8.2 mg/dL (8.7-10.4)
[2024-07-11 06:00] LABS: BUN/Creatinine Ratio 9.4 (10.0-20.0); Blood Urea Nitrogen 5 mg/dL (9-23); Glucose 91 mg/dL (74-106)
[2024-07-11 06:10] LABS: Basophils # (auto) 0.1 10 ^3/uL (0-0.2); Eosinophils # (auto) 0.3 10 ^3/uL (0-0.8); Hemoglobin 7.4 g/dL (12.2-16.2); Lymphocytes # (auto) 1.6 10 ^3/uL (0.4-5.4)
[2024-07-11 06:12] LABS: Basophils % (auto) 1.2 % (0.0-2.0); Eosinophils % (auto) 3.6 % (0.0-7.0); Hematocrit 25.9 % (36.0-46.0); Lymphocytes % (auto) 19.6 % (10.0-50.0); Mean Corpuscular Hemoglobin 17.3 pg (28.0-32.0); Mean Corpuscular Hgb Conc. 28.5 g/dL (32.0-36.0); Mean Corpuscular Volume 60.8 fL (80.0-100.0); Monocytes # (auto) 0.7 10 ^3/uL (0-1.3); Monocytes % (auto) 9.2 % (0.0-12.0); Neutrophils # (auto) 5.4 10 ^3/uL (1.6-8.6); Neutrophils % (auto) 66.4 % (37.0-80.0); Nucleated Red Blood Cells % 0.1 %; Platelet Count (auto) 256 10^3/uL (140-450); Red Blood Cells 4.26 10^6/uL (4.0-5.20); White Blood Cell 8.1 10^3/uL (4.4-10.8)
[2024-07-11 06:17] LABS: Red Cell Distribution Width 28.6 % (11.8-14.3)
[2024-07-11 08:59] LABS: Platelet Estimate Adequate
[2024-07-11 09:00] LABS: Anisocytosis Moderate; Hypochromia Moderate
[2024-07-11] MEDS ORDERED: DOCU-94 PO (15:52)
[2024-07-11] MEDS ORDERED: FERR-7 PO (15:52)
[2024-07-11] MEDS ORDERED: PANT40T PO (16:09)
[2024-07-11] MEDS ORDERED: LISI20TA56 PO (16:09)
[2024-07-12 12:47] LABS: Cancer Antigen (CA) 125 13.2 U/mL (0.0-38.1)
== END 2024-07-11 17:45 | disposition home or self-care (01) | DRG 812 ==
LOC: ER 09:42 → TELE 15:47 → WEST WING 15:57 → TELE-WESTW 23:40 → WEST WING 07-08 14:36
PROVIDERS: ADMIT Internal Medicine; ATTEND Internal Medicine
PROC: 30233N1 Transfusion of Nonautologous Red Blood Cells into Peripheral Vein, Percutaneous Approach (ICD-10-PCS; 2024-07-07)
PROC: 0DJ08ZZ Inspection of Upper Intestinal Tract, Via Natural or Artificial Opening Endoscopic (ICD-10-PCS; principal; 2024-07-10 13:10)
DX: D50.9 Iron deficiency anemia, unspecified (principal); I50.32 Chronic diastolic (congestive) heart failure; N39.0 Urinary tract infection, site not specified; K29.00 Acute gastritis without bleeding; K21.00 Gastro-esophageal reflux disease with esophagitis, without bleeding; E87.6 Hypokalemia; E66.01 Morbid (severe) obesity due to excess calories; K44.9 Diaphragmatic hernia without obstruction or gangrene; E78.00 Pure hypercholesterolemia, unspecified; I11.0 Hypertensive heart disease with heart failure; E11.9 Type 2 diabetes mellitus without complications; Z90.710 Acquired absence of both cervix and uterus; Z90.49 Acquired absence of other specified parts of digestive tract; Z83.3 Family history of diabetes mellitus; Z82.49 Family history of ischemic heart disease and other diseases of the circulatory system; Z68.39 Body mass index [BMI] 39.0-39.9, adult
CPT/HCPCS: 36415; 43235; 71045; 74177; 76856; 80048; 80053; 80061; 81001; 82270; 82607; 82728; 82746; 83540; 83550; 83615; 83735; 83880; 84443; 85014; 85018; 85025; 85045; 86304; 86850; 86870; 86900; 86901; 86922; 93306; 93970; 96374; 97110; 97163; 97530; G0378; J2250; J2470

== ENCOUNTER 2024-09-26 20:47 | Inpatient (IN) | payer MEDICARE, MEDICAID ==
[~2024-09-26] VITALS: Ht 167.6 cm; Wt 93.2 kg
[~2024-09-26 20:47] MED LIST changes: +DOCU-94 PO; +FERR-7 PO; +PANT40T PO; +POLY335015 PO; +PRED20TA2 PO; +SENN1TAB49 PO
--- NOTE | 2024-09-26 21:04 | ED.PDOC ---
HPI Comments HPI: Poor Historian. 73-year-old female presents to emergency department for evaluation of left-sided chest pain nonradiating intermittent in nature for the last three days. Patient denies associated symptoms. Patient has some associated dry cough. Past Medcial History: Hyperlipidemia, arthritis Past Surgical History: Appendectomy, cholecystectomy, hysterectomy Patient was noted to be tachycardic here in the ED. REVIEW OF SYSTEMS: CONSTITUTIONAL: Denies acute: fever, diaphoresis, chills, HEAD: Denies acute: headache, photophobia Eyes: Denies acute: Double vision, vision loss, eye pain, eye discharge. EARS: Denies acute: tinnitus, hearing loss, ear discharge, ear pain, THROAT: Denies acute: sore throat, swelling, difficulty swallowing , pain with swallowing, change in voice. NECK: Denies acute: neck pain, neck swelling, stiff neck. HEART: Denies acute : palpitations, LUNGS: Denies acute: SOB, wheezing, cough, hemoptysis ABDOMEN: Denies acute: abdominal pain, Nausea, Vomiting, diarrhea, melena , hematemesis, hematochezia SKIN: Denies acute: rash, redness, lesions, itchiness. EXTREMITIES: Denies acute: calf pain, numbness, tingling, weakness, denies pain in extremity. Denies acute: Low back pain. Neuro: Denies acute: focal neurological deficit, motor or sensory focal neurological deficit, tremors, seizure like activity, confusion, dizziness, change in mental status, loss of bowel or bladder function, cauda equina like symptoms. : Denies acute: dysuria, hematuria, flank pain, increase in urinary frequency. PSYCH: Denies acute: hallucination, suicidal ideation, homicidal ideation. FEMALE: Denies acute: abnormal vaginal bleeding, foul odor, unusual discharge. PHYSICAL EXAM: General: no acute distress, awake and alert. Head: normocephalic, atraumatic. Neck: supple, trachea is midline, no swelling. Throat: Normal phonation. Eyes:, no erythema, no purulent discharge, no proptosis, no icterus. Heart: regular tachycardic, no significant murmur appreciated. Lungs: no apparent respiratory distress, Able to speak in full sentences. No wheezing, no rhonchi, no crackles. No stridors Clear to auscultation bilaterally. Abdomen: non tender to palpation, non distended, soft, no guarding, no rebound, + bowel sounds. Neuro: Awake, Alert, oriented to name, self, situation, follows commands GCS=15. Speech is normal. Skin: no petechia, no purpura, no cyanosis, non-pale, not jaundice. Lower extremities: --no - Pitting edema no deformity, no focal swelling, no calf TTP. Makes eye contact. moves all four extremities. Face: no apparent facial droop. Chief Complaint: Chest Pain Time Seen by MD: 20:49 Primary Care Provider: None Reviewed Notes: Nurses Notes, Allergies Allergies: Coded Allergies: NO KNOWN ALLERGIES (Unverified , 08/19/16) Home Meds Active Scripts Prednisone (Prednisone) 20 Mg Tab, 40 MG PO DAILY, #20 TAB Prov:YOVANI COLON 08/18/24 Hydrocodone-Acetaminophen (Hydrocodone Bitartrate/AC 5-325 mg) 1 Tab Tab, 1 TAB PO BID, #14 TAB Prov:YOVANI COLON 08/18/24 Lisinopril (Lisinopril) 20 Mg Tab, 1 TAB PO DAILY for 30 Days, #30 TAB 5 Refills Prov:SANTOS BAXTER RESIDENT 07/11/24 Pantoprazole Sodium Sesquihydr (Pantoprazole Sodium) 40 Mg Tab, 40 MG PO DAILY for 30 Days, #30 TAB Prov:CANDY KellerSANTOS RESIDENT 07/11/24 Docusate Sodium (Colace) 100 Mg Cap, 1 CAP PO BID for 15 Days, #30 CAP Prov:SANTOS BAXTER RESIDENT 07/11/24 Ferrous Sulfate (Iron) 325 Mg Tab, 325 MG PO DAILY for 30 Days, #30 TAB Prov:SANTOS BAXTER RESIDENT 07/11/24 Polyethylene Glycol 3350 (Miralax) 17 Gm Pow, 17 GM PO DAILY, #100 POW 0 Refills Prov:ADELA VYAS MD 07/07/24 Sennosides-Docusate Sodium (Colace 2-in-1 8.6-50 mg) 1 Tab Tab, 1 TAB PO BID, #20 TAB 0 Refills Prov:ADELA VYAS MD 07/07/24 Pantoprazole Sodium Sesquihydr (Protonix) 40 Mg Tab, 40 MG PO DAILY, #30 TAB Prov:DERIAN BLUM MD 06/12/24 Lisinopril (Lisinopril) 10 Mg Tab, 10 MG PO DAILY for 30 Days, #30 TAB Prov:DERIAN BLUM MD 06/12/24 Hydrocodone-Acetaminophen (Hydrocodone Bitartrate/AC 5-325 mg) 1 Tab Tab, 1 TAB PO Q6HP PRN for 5 Days, #20 TAB Prov:DERIAN BLUM MD 06/12/24 Atorvastatin Calcium (Lipitor) 40 Mg Tab, 1 TAB PO DAILY, #30 TAB 5 Refills Prov:DERIAN BLUM MD 06/12/24 Reported Medications Hydrocodone-Acetaminophen (Hydrocodone/Acetaminophen 5-325 mg) 1 Tab Tab, 1 TAB PO BID 09/27/24 Atorvastatin Calcium (ATORVASTATIN CALCIUM) 40 Mg Tab, 1 TAB PO DAILY 09/27/24 Lisinopril (Lisinopril) 20 Mg Tab, 1 TAB PO DAILY, #30 TAB 5 Refills 10/13/20 Hydrochlorothiazide (Hydrochlorothiazide) 12.5 Mg Tab, 12.5 MG PO, TAB 08/19/16 Lisinopril (Lisinopril) 2.5 Mg Tab, 1 TAB PO DAILY, #30 TAB 5 Refills 08/19/16 Mode of Arrival: Wheelchair Past Medical History PAST MEDICAL HISTORY: Arthritis, GERD, High Lipids, HTN Surgical History: Appendectomy, Cholecystectomy, Hysterectomy CONSERVATION OF RESOURCES COMMISSIONER History: No Pertinent CONSERVATION OF RESOURCES COMMISSIONER History Family History Family History: Reviewed,noncontributory to illness, Family hx of DM, Family hx of Cancer, Family hx of heart payam Social History Smoker: Non-Smoker Alcohol: Denies ETOH Use Drugs: Denies Drug Use Lives In: Home Was a procedure done? Was a procedure done?: No CP Differential Dx Differential Diagnosis: N/A Differential Diagnosis: Other (Ddx include but not limitied to gastritis, musculoskeletal pain, radiculopathy, atypical chest pain, dissection, aneurysm, ACS, unstable angina, hiatal hernia, GERD, anxiety, costochondritis, PE, pneumothroax, neoplasm, cardiac ischemia, drug abuse, anemia.) X-Ray, Labs, Meds, VS Vital Signs Date Time Temp Pulse Resp B/P (MAP) Pulse Ox O2 Delivery O2 Flow Rate FiO2 09/26/24 21:50 103 09/26/24 20:56 115 09/26/24 20:47 97.8 119 18 130/79 (96) 97 Lab Test 09/26/24 22:05 09/26/24 21:01 Range/Units Troponin I High Sensitivity 7 8 </=34 ng/L White Blood Count 10.1 4.4-10.8 10^3/uL Red Blood Count 5.73 H 4.0-5.20 10^6/uL Hemoglobin 11.5 L 12.2-16.2 g/dL Hematocrit 37.8 36.0-46.0 % Mean Corpuscular Volume 66.1 L 80.0-100.0 fL Mean Corpuscular Hemoglobin 20.1 L 28.0-32.0 pg Mean Corpuscular Hemoglobin Concent 30.4 L 32.0-36.0 g/dL Red Cell Distribution Width 19.2 H 11.8-14.3 % Platelet Count 501 H 140-450 10^3/uL Mean Platelet Volume 8.3 6.9-10.8 fL Neutrophils (%) (Auto) 68.2 37.0-80.0 % Lymphocytes (%) (Auto) 20.3 10.0-50.0 % Monocytes (%) (Auto) 8.3 0.0-12.0 % Eosinophils (%) (Auto) 1.5 0.0-7.0 % Basophils (%) (Auto) 1.7 0.0-2.0 % Neutrophils # (Auto) 6.9 1.6-8.6 10 ^3/uL Lymphocytes # (Auto) 2.0 0.4-5.4 10 ^3/uL Monocytes # (Auto) 0.8 0-1.3 10 ^3/uL Eosinophils # (Auto) 0.2 0-0.8 10 ^3/uL Basophils # (Auto) 0.2 0-0.2 10 ^3/uL Nucleated Red Blood Cells 0.1 % Sodium Level 138 136-145 mmol/L Potassium Level 3.4 L 3.5-5.1 mmol/L Chloride Level 105 98-107 mmol/L Carbon Dioxide Level 26 20-31 mmol/L Anion Gap 7 5-15 Blood Urea Nitrogen 12 9-23 mg/dL Creatinine 0.65 0.550-1.02 mg/dL Glomerular Filtration Rate Calc 93 >90 mL/min BUN/Creatinine Ratio 18.5 10.0-20.0 Serum Glucose 110 H 74-106 mg/dL Calcium Level 9.3 8.7-10.4 mg/dL Total Bilirubin 0.4 0.2-1.0 mg/dL Aspartate Amino Transferase (AST) 13 13-40 U/L Alanine Aminotransferase (ALT) < 9 7-40 U/L Alkaline Phosphatase 35 L 46-116 U/L B-Type Natriuretic Peptide 54.97 0-100 pg/mL Total Protein 7.3 5.7-8.2 g/dL Albumin 3.7 3.2-4.8 g/dL [place] [id number] Ph: [phone] DIAGNOSTIC IMAGING Diagnostic Imaging Report : [id number] Signed PATIENT: ESTEBAN GONZALEZ ACCT: [id number] UNIT: [id number] : 1950 LOC: ER ROOM / BED: / AGE / SEX: 73 / F ADM STATUS: REG ER SERVICE 50 ORDERING PHYSICIAN: TRUE DORSEY DO PROCEDURE(s): CXRP - CHEST PORTABLE REASON: cp ORDER NUMBER(s): [id number], ACCESSION NUMBER(s): [id number] CHEST RADIOGRAPH Indication:cp Technique: Single frontal view of the chest was obtained Comparison: XY CHEST PORTABLE on DOS: 07/08/24, CHEST PORTABLE on DOS: 10/16/20, CHEST PORTABLE on DOS: 10/12/20 Findings/ IMPRESSION: Mild cardiomegaly with large hiatal hernia. No significant interval change. ATED BY: ANDREINA HOWARD DO DICTATED DATE/TIME: 09/26/242142 SIGNED BY: ANDREINA HOWARD DO SIGNED DATE/TIME: 09/26/242142 CC: Time of 1ST Reevaluation: 22:30 Reevaluation 1ST: Improved Patient Education/Counseling: Diagnosis, Treatment Family Education/Counseling: No Family Present Comments Patient presented with the above HPI.---cardiac---workup was initiated. patient was found with the above mentioned diagnosis. Patient was given: Nitroglycerin and aspirin Patient ED course and VS have been stabilized. Patient has been reassessed in the ED and remained in a stable condition. Pertinent incidental findings were discussed with the patient and/or family. Patient/family voices understanding and is agreeable with plan. Patient has been observed in the ED adequate length of time to insure improvement/stability. patient was admitted to the medicine team for further evaluation and treatment of their presentation. All the reports of any imaging studies that were ordered by myself were reviewed by myself. Departure 1 Departure Time of Disposition: 22:34 Impression: Primary Impression: Chest pain Disposition: ADMITTED INPATIENT Admit to: Tele Condition: Guarded Discharged With: Self Critical Care Note Critical Care Time?: No Heart Score Heart Score: Heart Score Response (Comments) Value History Slightly Suspicious 0 EKG Normal 0 Age >65 2 Risk Factors 1 or 2 risk factors 1 Troponin Normal limit 0 Total 3 TRUE DORSEY DO Sep 26, 2024 21:04
[2024-09-26 21:23] LABS: Eosinophils # (auto) 0.2 10 ^3/uL (0-0.8); Hemoglobin 11.5 g/dL (12.2-16.2); Mean Corpuscular Volume 66.1 fL (80.0-100.0); Nucleated Red Blood Cells % 0.1 %
[2024-09-26 21:25] LABS: Basophils # (auto) 0.2 10 ^3/uL (0-0.2); Basophils % (auto) 1.7 % (0.0-2.0); Eosinophils % (auto) 1.5 % (0.0-7.0); Hematocrit 37.8 % (36.0-46.0); Lymphocytes % (auto) 20.3 % (10.0-50.0); Mean Corpuscular Hemoglobin 20.1 pg (28.0-32.0); Mean Corpuscular Hgb Conc. 30.4 g/dL (32.0-36.0); Monocytes # (auto) 0.8 10 ^3/uL (0-1.3); Monocytes % (auto) 8.3 % (0.0-12.0); Neutrophils # (auto) 6.9 10 ^3/uL (1.6-8.6); Neutrophils % (auto) 68.2 % (37.0-80.0); Platelet Count (auto) 501 10^3/uL (140-450); Red Blood Cells 5.73 10^6/uL (4.0-5.20); Red Cell Distribution Width 19.2 % (11.8-14.3); White Blood Cell 10.1 10^3/uL (4.4-10.8)
[2024-09-26 21:35] LABS: Albumin 3.7 g/dL (3.2-4.8); Alkaline Phosphatase 35 U/L (46-116); Anion Gap 7 (5-15); Aspartate Aminotransferase 13 U/L (13-40); BUN/Creatinine Ratio 18.5 (10.0-20.0); Blood Urea Nitrogen 12 mg/dL (9-23); Calcium 9.3 mg/dL (8.7-10.4); Carbon Dioxide 26 mmol/L (20-31); Chloride 105 mmol/L (98-107); Glucose 110 mg/dL (74-106); Potassium 3.4 mmol/L (3.5-5.1); Sodium 138 mmol/L (136-145)
[2024-09-26 21:36] LABS: Bilirubin, Total 0.4 mg/dL (0.2-1.0); Total Protein 7.3 g/dL (5.7-8.2)
--- NOTE | 2024-09-26 21:46 | DVH ---
CHEST RADIOGRAPH Indication:cp Technique: Single frontal view of the chest was obtained Comparison: XY CHEST PORTABLE on DOS: 07/08/24, CHEST PORTABLE on DOS: 10/16/20, CHEST PORTABLE on DOS : 10/12/20 Findings/ IMPRESSION: Mild cardiomegaly with large hiatal hernia. No significant interval change.
[2024-09-26 21:55] LABS: Alanine Aminotransferase < 9 U/L (7-40)
[2024-09-26] MEDS: ASPirin 325 MG TAB PO ONE (22:39)
[2024-09-26] MEDS ORDERED: NITROGLYCERIN 0.4 MG SL TAB SL PRN (23:00)
[2024-09-26] MEDS: NITROGLYCERIN 0.4 MG SL TAB SL ONE (23:07)
[2024-09-26] MEDS: POTASSIUM CHL 20 Meq TABLET PO ONE (23:25)
--- NOTE | 2024-09-26 23:36 | DVHHP2 ---
History of Present Illness Reason for Visit: Chest pain History of Present Illness 73-year-old female presents for evaluation of chest pain. The patient endorses a two day history of left-sided intermittent sharp chest pain that occasionally radiates to her back. She reports occasional shortness of breath with nausea. No emesis. No cough or fever. No other acute complaints reported. Past Medical History Hypertension, dyslipidemia and GERD Past Surgical History Cholecystectomy, hysterectomy and appendectomy Family History Noncontributory Smoke: No ALCOHOL: none Drugs: None Lives: with Family Review of Systems Review of Systems Review of systems are currently negative otherwise addressed in HPI. Allergies: Coded Allergies: NO KNOWN ALLERGIES (Unverified , 08/19/16) Medications Current Medications Medications Dose Ordered Sig/Amador Route Start Time Stop Time Status Last Admin Dose Admin Aspirin 162 mg DAILY PO 09/27/24 10:00 Atorvastatin Calcium 40 mg HS PO 09/27/24 22:00 Lisinopril 20 mg DAILY PO 09/27/24 10:00 Hydrochlorothiazide 12.5 mg DAILY PO 09/27/24 10:00 Ondansetron HCl 4 mg Q4HP PRN IV 09/26/24 23:00 Acetaminophen 650 mg Q6HP PRN PO 09/26/24 23:00 Nitroglycerin 0.4 mg Q5MINP PRN SL 09/26/24 23:00 Morphine Sulfate 2 mg Q30M PRN IV 09/26/24 23:00 Exam Vital Signs Vital Signs Date Time Temp Pulse Resp B/P (MAP) Pulse Ox O2 Delivery O2 Flow Rate FiO2 09/26/24 23:07 134/82 09/26/24 21:50 103 09/26/24 20:47 97.8 18 97 Exam Gen: 73-year-old female in mild distress Skin: Warm, dry, normal color and texture, no rash. HEENT: Normocephalic atraumatic, mucous membranes moist and pink. Neck: Cervical and supraclavicular nodes normal without enlargement, trachea is midline, thyroid gland is normal without masses. Pulmonary: Clear to auscultation and percussion bilaterally. Cardiac: Regular rate and rhythm. No murmur Abdomen: Soft, nontender, nondistended, bowel sounds present all 4 quadrants, no guarding, no rigidity, no organomegaly. Extremities: No cyanosis, clubbing, no edema Neuro: Cranial nerves II through XII grossly intact, normal affect and speech, no focal motor deficits. Labs/Xrays ORDERING PHYSICIAN: CALEB ZEPEDA PROCEDURE(s): ECIDC - ECHO 2D MODE CARDIAC DOP REASON: Leg swelling and SOB ORDER NUMBER(s): [id number], ACCESSION NUMBER(s): [id number] APPROVED REPORT EXAM: Two-dimensional and M-mode echocardiogram with Doppler and color Doppler. Blood Pressure: 147/66 mmHg INDICATION leg swelling and sob DIMENSIONS LVDd 4.0 (3.8-5.7cm) LA (2D) 5.0 (1.9-4.0cm) Aortic Root 3.1 (2.0-3.7cm) LVDs 2.6 (2.5-4.0cm) LA (MM) (1.9-4.0cm) Aortic Cusp Exc 1.4 (1.5- 2.0cm) EF (%) 64.0 (55-70%) Rt. Atrium 4.2 (1.9-4.0cm) Asc. Aorta cm IVSd 0.7 (0.7-1.1cm) RV (D) 4.2 (1.8-2.4cm) PWd 1.1 (0.7-1.1cm) Mitral Valve Mitral Mitral Stenosis E wave 1.57m/s MV Mean GR. mmHg A wave 1.78m/s MV Peak GR. 117mmHg E/A ratio 0.9 2D MVA cm2 DECEL Time 235ms PRESS 1/2 Time ms Aortic Valve Aortic Valve Aortic Stenosis V1 1.59m/s AO Mean GR. 7mmHg V2 1.88m/s AO Peak GR. 14mmHg Pulmonic Valve V2 1.00m/s Tricuspid Valve TR Velocity 3.13m/s RVSP 50mmHg Conclusion Hyperdynamic left ventricle with normal left ventricular systolic function at 60%. There is a grade 1 diastolic dysfunction. Normal right ventricular size and dimension. Normal right ventricular systolic function. Moderately elevated right ventricular systolic pressure at 50 mm of mercury. Normal biatrial size and dimension. The aortic valve appears thickened and sclerotic. The is moderate mitral valve regurgitation. There is mild tricuspid valve regurgitation. The pulmonary valve is grossly normal. No pericardial effusion. SIGNED BY: CAIO TERRELL MD SIGNED DATE/TIME: 07/08/24 1407 ORDERING PHYSICIAN: TRUE DORSEY DO PROCEDURE(s): CXRP - CHEST PORTABLE REASON: cp ORDER NUMBER(s): [id number], ACCESSION NUMBER(s): [id number] CHEST RADIOGRAPH Indication:cp Technique: Single frontal view of the chest was obtained Comparison: XY CHEST PORTABLE on DOS: 07/08/24, CHEST PORTABLE on DOS: 10/16/20, CHEST PORTABLE on DOS: 10/12/20 Findings/ IMPRESSION: Mild cardiomegaly with large hiatal hernia. No significant interval change. Labs Test 09/26/24 22:05 09/26/24 21:01 Range/Units Troponin I High Sensitivity 7 </=34 ng/L White Blood Count 10.1 4.4-10.8 10^3/uL Red Blood Count 5.73 H 4.0-5.20 10^6/uL Hemoglobin 11.5 L 12.2-16.2 g/dL Hematocrit 37.8 36.0-46.0 % Mean Corpuscular Volume 66.1 L 80.0-100.0 fL Mean Corpuscular Hemoglobin 20.1 L 28.0-32.0 pg Mean Corpuscular Hemoglobin Concent 30.4 L 32.0-36.0 g/dL Red Cell Distribution Width 19.2 H 11.8-14.3 % Platelet Count 501 H 140-450 10^3/uL Mean Platelet Volume 8.3 6.9-10.8 fL Neutrophils (%) (Auto) 68.2 37.0-80.0 % Lymphocytes (%) (Auto) 20.3 10.0-50.0 % Monocytes (%) (Auto) 8.3 0.0-12.0 % Eosinophils (%) (Auto) 1.5 0.0-7.0 % Basophils (%) (Auto) 1.7 0.0-2.0 % Neutrophils # (Auto) 6.9 1.6-8.6 10 ^3/uL Lymphocytes # (Auto) 2.0 0.4-5.4 10 ^3/uL Monocytes # (Auto) 0.8 0-1.3 10 ^3/uL Eosinophils # (Auto) 0.2 0-0.8 10 ^3/uL Basophils # (Auto) 0.2 0-0.2 10 ^3/uL Nucleated Red Blood Cells 0.1 % Sodium Level 138 136-145 mmol/L Potassium Level 3.4 L 3.5-5.1 mmol/L Chloride Level 105 98-107 mmol/L Carbon Dioxide Level 26 20-31 mmol/L Anion Gap 7 5-15 Blood Urea Nitrogen 12 9-23 mg/dL Creatinine 0.65 0.550-1.02 mg/dL Glomerular Filtration Rate Calc 93 >90 mL/min BUN/Creatinine Ratio 18.5 10.0-20.0 Serum Glucose 110 H 74-106 mg/dL Calcium Level 9.3 8.7-10.4 mg/dL Total Bilirubin 0.4 0.2-1.0 mg/dL Aspartate Amino Transferase (AST) 13 13-40 U/L Alanine Aminotransferase (ALT) < 9 7-40 U/L Alkaline Phosphatase 35 L 46-116 U/L B-Type Natriuretic Peptide 54.97 0-100 pg/mL Total Protein 7.3 5.7-8.2 g/dL Albumin 3.7 3.2-4.8 g/dL Assessment/Plan Assessment/Plan Assessment Chest pain rule out ACS Hypertension Hypokalemia Dyslipidemia Plan Admit the patient to telemetry to the hospitalist ACS protocol Cardiology consultation Resume home medications Continue treatment per orders. Plan discussed with: Patient My Orders Orders - EUN MORRIS AGACNP Procedure Category Date Status Time Aspirin Tablet PHA 09/27/24 In Process 10:00 Atorvastatin (Lipitor) PHA 09/27/24 In Process 22:00 Lisinopril Tablet PHA 09/27/24 In Process (Zestril Tablet) 10:00 Hydrochlorothiazide PHA 09/27/24 In Process Tablet (Hydrochlorot 10:00 * Cardiology Consult CONS 09/26/24 Transmitted 22:55 Admit ADMIT 09/26/24 Transmitted 22:55 Ondansetron Hcl PHA 09/26/24 In Process (Zofran) 23:00 Cardiac DIET 09/27/24 Transmitted Diet-2gna,Lofat,Lochol Breakfast Condition: Fair SHELBY 09/26/24 In Process 22:55 Acetaminophen Tablet [facility] 09/26/24 In Process (Tylenol Tablet) 23:00 Bedrest With Bathroom [facility] 09/26/24 In Process Privileg 22:55 Nitroglycerin [facility] 09/26/24 In Process Sublingual (Ntrostat 23:00 Morphine Sulfate [facility] 09/26/24 In Process Injection 23:00 Stat Ekg For Chest [facility] 09/26/24 In Process Pain 22:55 Notify Md Of Changes [facility] 09/26/24 In Process From Base 22:55 [place] For [facility] 09/26/24 In Process 24 Hours 22:55 Emergency Dysrhythmia [facility] 09/26/24 In Process Protocol 22:55 Rhythm Strips Once [facility] 09/26/24 In Process Every Shift 22:55 Oxygen By Nasal RT 09/26/24 Transmitted Cannula 22:55 Basic Metabolic Panel LAB 09/27/24 Verified 04:00 Date of Service: Sep 26, 2024 Billing Provider: EUN MORRIS Common Visit Codes: [id number] INP/OBS CARE (HIGH) EUN MORRIS Sep 26, 2024 23:36
[2024-09-26] MEDS: MORPHINE SULFATE INJ 2 MG/ml SYRG IV PRN (23:41)
[2024-09-26] MEDS: ONDANSETRON HCL 4 MG/2 ML VIAL IV PRN (23:41)
[2024-09-27 04:02] LABS: Chloride 105 mmol/L (98-107); Potassium 3.7 mmol/L (3.5-5.1); Sodium 138 mmol/L (136-145)
[2024-09-27 04:03] LABS: Anion Gap 5 (5-15); Carbon Dioxide 28 mmol/L (20-31)
[2024-09-27 04:04] LABS: Calcium 9.1 mg/dL (8.7-10.4)
[2024-09-27 04:08] LABS: BUN/Creatinine Ratio 22.2 (10.0-20.0); Blood Urea Nitrogen 12 mg/dL (9-23); Glucose 91 mg/dL (74-106)
--- NOTE | 2024-09-27 05:53 | ECG ---
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
--- NOTE | 2024-09-27 05:54 | ECG ---
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
[2024-09-27 08:00] VITALS: PULSE 86; RESP 15; O2SAT 94
--- NOTE | 2024-09-27 09:23 | ECG ---
[facility] Test Date: 2024-09-26 Test Time: 20:56:21 Pat Name: ESTEBAN GONZALEZ Department: ER Room: [facility]3T Gender: F Medical Lab Director: YANELI : 1950 Requested By: TRUE DORSEY Order Number: [id number] Reading MD: Iker Vaughan Measurements Intervals [place] Rate: 115 P: 58 FL: 160 QRS: 52 QRSD: 74 T: 37 QT: 322 QTc: 446 Interpretive Statements Sinus tachycardia Ventricular premature complex Probable left atrial enlargement Anterior infarct, old Electronically Signed On 09-28-2024 14:56:07 PDT by Iker Vaughan Please click the below link to view image of tracing.
[2024-09-27 09:26] LABS: Urine Bacteria FEW /hpf (None Seen); Urine Blood Negative /uL (Negative); Urine Clarity Turbid (Clear); Urine Color Yellow (Yellow); Urine Mucus FEW (None Seen); Urine Protein, UAD TRACE (Negative); Urine Specific Gravity 1.023 (1.001-1.035); Urine Urobilinogen 3 mg/dL (Negative); Urine WBC 99 /hpf (0 - 5); Urine pH 5.5 (5.0-9.0)
[2024-09-27] MEDS: ACETAMINOPHEN 325 MG TAB PO PRN (10:22)
[2024-09-27] MEDS: ASPirin 81 mg TAB PO SCH (10:22)
[2024-09-27] MEDS: hydroCHLOROthiazide 25 MG TAB PO SCH (10:22)
[2024-09-27] MEDS: LISINOPRIL 20 MG TAB PO SCH (10:23)
--- NOTE | 2024-09-27 12:52 | DVHINCON2 ---
Date Seen: Sep 27, 2024 Referring Physician YANELI Park Reason for Consultation Chest pain History of Present Illness This is a pleasant 73-year-old female who presented to the emergency room with a chief complaint of chest pain last week. Describes her chest pain as substernal, sharp in nature, radiating to her bilateral shoulders, intermittent, and worse upon movement of upper extremities and coughing. The pain was reproducible upon auscultation. She underwent multiple 12 lead electrocardiogram a sinus rhythm suggestive of left ventricular hypertrophy. Serial troponin levels are negative. Significant medical history includes severe rheumatoid arthritis with wheelchair status, hypertension, dyslipidemia, anemia, large hiatal hernia, GERD, and morbid obesity. Past Medical History Past medical history reviewed. No other significant than mentioned above. Past Surgical History Left shoulder Hysterectomy Cholecystectomy Appendectomy Family History: Diabetes mellitus G8 MOTHER G8 FATHER FH: heart failure G8 MOTHER G8 FATHER Family History Family history reviewed. Social History Denies the use of illicit drugs, alcohol, or tobacco use. Allergies: Coded Allergies: NO KNOWN ALLERGIES (Unverified , 08/19/16) Home Meds Active Scripts Prednisone (Prednisone) 20 Mg Tab, 40 MG PO DAILY, #20 TAB Prov:YOVANI COLON 08/18/24 Hydrocodone-Acetaminophen (Hydrocodone Bitartrate/AC 5-325 mg) 1 Tab Tab, 1 TAB PO BID, #14 TAB Prov:YOVANI COLON 08/18/24 Lisinopril (Lisinopril) 20 Mg Tab, 1 TAB PO DAILY for 30 Days, #30 TAB 5 Refills Prov:SANTOS BAXTER RESIDENT 07/11/24 Pantoprazole Sodium Sesquihydr (Pantoprazole Sodium) 40 Mg Tab, 40 MG PO DAILY for 30 Days, #30 TAB Prov:SANTOS BAXTER 07/11/24 Docusate Sodium (Colace) 100 Mg Cap, 1 CAP PO BID for 15 Days, #30 CAP Prov:SANTOS BAXTER 07/11/24 Ferrous Sulfate (Iron) 325 Mg Tab, 325 MG PO DAILY for 30 Days, #30 TAB Prov:SANTOS BAXTER 07/11/24 Polyethylene Glycol 3350 (Miralax) 17 Gm Pow, 17 GM PO DAILY, #100 POW 0 Refills Prov:ADELA VYAS MD 07/07/24 Sennosides-Docusate Sodium (Colace 2-in-1 8.6-50 mg) 1 Tab Tab, 1 TAB PO BID, #20 TAB 0 Refills Prov:ADELA VYAS MD 07/07/24 Pantoprazole Sodium Sesquihydr (Protonix) 40 Mg Tab, 40 MG PO DAILY, #30 TAB Prov:DERIAN BLUM MD 06/12/24 Lisinopril (Lisinopril) 10 Mg Tab, 10 MG PO DAILY for 30 Days, #30 TAB Prov:DERIAN BLUM MD 06/12/24 Hydrocodone-Acetaminophen (Hydrocodone Bitartrate/AC 5-325 mg) 1 Tab Tab, 1 TAB PO Q6HP PRN for 5 Days, #20 TAB Prov:DERIAN BLUM MD 06/12/24 Atorvastatin Calcium (Lipitor) 40 Mg Tab, 1 TAB PO DAILY, #30 TAB 5 Refills Prov:DERIAN BLUM MD 06/12/24 Reported Medications Lisinopril (Lisinopril) 20 Mg Tab, 1 TAB PO DAILY, #30 TAB 5 Refills 10/13/20 Hydrochlorothiazide (Hydrochlorothiazide) 12.5 Mg Tab, 12.5 MG PO, TAB 08/19/16 Lisinopril (Lisinopril) 2.5 Mg Tab, 1 TAB PO DAILY, #30 TAB 5 Refills 08/19/16 Home Meds Home medications reviewed. Current Medications Current Medications Medications (Trade) Dose Ordered Sig/Amador Route PRN Reason Start Time Stop Time Status Last Admin Aspirin 162 mg DAILY PO 09/27/24 10:00 09/27/24 10:22 Atorvastatin Calcium (Lipitor) 40 mg HS PO 09/27/24 22:00 Lisinopril (Zestril Tablet) 20 mg DAILY PO 09/27/24 10:00 09/27/24 10:23 Hydrochlorothiazide (hydroCHLOROthiazide TABLET) 12.5 mg DAILY PO 09/27/24 10:00 09/27/24 10:22 Ondansetron HCl (Zofran) 4 mg Q4HP PRN IV NAUSEA / VOMITING 09/26/24 23:00 09/26/24 23:41 Acetaminophen (Tylenol Tablet) 650 mg Q6HP PRN PO PAIN SCALE 1-3 OR TEMP>100.4 09/26/24 23:00 09/27/24 10:22 Nitroglycerin (Ntrostat Sublingual) 0.4 mg Q5MINP PRN SL FOR CHEST PAIN 09/26/24 23:00 Morphine Sulfate 2 mg Q30M PRN IV FOR CHEST PAIN 09/26/24 23:00 09/27/24 02:34 Review of Systems Constitutional: No symptom reported Ears, Nose, & Throat: No symptom reported Eyes: No symptom reported Neurological: No symptoms reported Pulmonary/Respiratory: No symptom reported Cardiovascular: No symptom reported Gastrointestinal: No symptom reported Genitourinary: No symptom reported Musculoskeletal: Chest wall pain/shoulder pain Skin: No symptom reported Psychiatric: No symptom reported Endocrine: No symptom reported Hemotologic/Lymphatic: No symptom reported Vital Signs Vital Signs Date Time Temp Pulse Resp B/P (MAP) Pulse Ox O2 Delivery O2 Flow Rate FiO2 09/27/24 10:23 119/57 09/27/24 10:00 102 15 97 09/27/24 08:00 Room Air* 0 21 09/27/24 08:00 98.9 98.9 Physical Exam General Appearance: Cooperative. Well developed. Morbid obesity. In no acute distress Head Exam: Normal inspection Neck Exam: Normal inspection. Non-tender. Normal alignment Pulmonary/Respiratory: Chest non-tender. Clear bilateral breath sounds Cardiovascular/Chest: Regular rate and rhythm. S1, S2. Sinus rhythm suggestive of LVH. No murmurs. No JVD. Peripheral Pulses: 2+ Radial (R). 2+ Radial (L). 2+ Pedal (R). 2+ Pedal (L) Abdominal Exam: Normal bowel sounds. Soft. Nontender. No hepatospenomegaly. No masses Ankle Exam: Negative ankle edema Lower extremities: Negative lower extremity edema Neuro/Mental Status: A&O x4. Coherent Thoughts/Psych: Normal thought pattern. Appropriate mood and affect. Good judgement and insight Appearance: In no acute distress Skin Exam: Normal inspection. Normal color. Warm. Dry Labs/Diagnostic Data Labs Test 09/27/24 08:56 09/27/24 03:21 09/27/24 00:19 09/26/24 21:01 Range/Units Urine Color Yellow Yellow Urine Clarity Turbid H Clear Urine pH 5.5 5.0-9.0 Urine Specific [place] 1.023 1.001-1.035 Urine Protein Trace H Negative Urine Ketones Negative Negative Urine Blood Negative Negative /uL Urine Nitrite Negative Negative Urine Bilirubin Negative Negative Urine Urobilinogen 3 H Negative mg/dL Urine Leukocyte Esterase 3+ Negative /uL Urine RBC 28 0 - 4 /hpf Urine WBC 99 0 - 5 /hpf Urine Squamous Epithelial Cells Few <5 /hpf Urine Bacteria Few H None Seen /hpf Urine Mucus Few None Seen Urine Glucose Normal Normal mg/dL Sodium Level 138 136-145 mmol/L Potassium Level 3.7 3.5-5.1 mmol/L Chloride Level 105 98-107 mmol/L Carbon Dioxide Level 28 20-31 mmol/L Anion Gap 5 5-15 Blood Urea Nitrogen 12 9-23 mg/dL Creatinine 0.54 L 0.550-1.02 mg/dL Glomerular Filtration Rate Calc 98 >90 mL/min BUN/Creatinine Ratio 22.2 H 10.0-20.0 Serum Glucose 91 74-106 mg/dL Calcium Level 9.1 8.7-10.4 mg/dL Troponin I High Sensitivity 8 </=34 ng/L White Blood Count 10.1 4.4-10.8 10^3/uL Red Blood Count 5.73 H 4.0-5.20 10^6/uL Hemoglobin 11.5 L 12.2-16.2 g/dL Hematocrit 37.8 36.0-46.0 % Mean Corpuscular Volume 66.1 L 80.0-100.0 fL Mean Corpuscular Hemoglobin 20.1 L 28.0-32.0 pg Mean Corpuscular Hemoglobin Concent 30.4 L 32.0-36.0 g/dL Red Cell Distribution Width 19.2 H 11.8-14.3 % Platelet Count 501 H 140-450 10^3/uL Mean Platelet Volume 8.3 6.9-10.8 fL Neutrophils (%) (Auto) 68.2 37.0-80.0 % Lymphocytes (%) (Auto) 20.3 10.0-50.0 % Monocytes (%) (Auto) 8.3 0.0-12.0 % Eosinophils (%) (Auto) 1.5 0.0-7.0 % Basophils (%) (Auto) 1.7 0.0-2.0 % Neutrophils # (Auto) 6.9 1.6-8.6 10 ^3/uL Lymphocytes # (Auto) 2.0 0.4-5.4 10 ^3/uL Monocytes # (Auto) 0.8 0-1.3 10 ^3/uL Eosinophils # (Auto) 0.2 0-0.8 10 ^3/uL Basophils # (Auto) 0.2 0-0.2 10 ^3/uL Nucleated Red Blood Cells 0.1 % Total Bilirubin 0.4 0.2-1.0 mg/dL Aspartate Amino Transferase (AST) 13 13-40 U/L Alanine Aminotransferase (ALT) < 9 7-40 U/L Alkaline Phosphatase 35 L 46-116 U/L B-Type Natriuretic Peptide 54.97 0-100 pg/mL Total Protein 7.3 5.7-8.2 g/dL Albumin 3.7 3.2-4.8 g/dL Assessment Noncardiac chest pain, musculoskeletal Rheumatoid arthritis exacerbation Hypertension Dyslipidemia Wheelchair status Morbid obesity Plan/Recommendation (Dr. Terrell) The patient presents with noncardiac chest pain, likely musculoskeletal secondary to rheumatoid arthritis exacerbation. Given suggestive left ventricular hypertrophy on 12-lead electrocardiogram, the patient will undergo a transthoracic echocardiogram to rule out structural heart disease. In the setting of an unremarkable echocardiogram, there is no further cardiac workup indicated at this time. Thank you for allowing us to participate in this ramon ent's care. Please call if you have any questions or concerns. This medical document was created using an electronic medical record system with voice recognition software and computerized dictation system. Although this document has been carefully reviewed, there might still be some phonetic and typographical errors. Occasional wrong-word or ``sound-alike substitutions may have occurred due to the inherent limitations of voice recognition software. These areas are purely typographical due to imperfections of the software programs and do not reflect any compromise in the patient's medical care. Please read the chart carefully and recognize, using context, where these substitutions have occurred. Plan discussed with: Patient, Other Date of Service: Sep 27, 2024 Billing Provider: CAIO TERRELL MD Cardiology Common Codes: [id number] INP/OBS CARE (High) [facility] Sep 27, 2024 12:52
[2024-09-27 15:00] VITALS: BP 114/56; PULSE 102; RESP 18; TEMP 98.5; O2SAT 97
[2024-09-27] MEDS ORDERED: HYDR1TAB97 PO (15:35)
[2024-09-27] MEDS ORDERED: ATOR40TA52 PO (15:35)
--- NOTE | 2024-09-27 16:31 | DVHPN2 ---
Subjective Patient continues to report having intermittent left lower chest pain, described as sharp in nature. Reviewed: Care Plan, H&P, Labs Changes from previous H/P or p: No Changes General: Per HPI Objective Vitals Vital Signs Date Time Temp Pulse Resp B/P (MAP) Pulse Ox O2 Delivery O2 Flow Rate FiO2 09/27/24 15:00 98.5 102 18 114/56 (75) 97 98.5 09/27/24 08:00 Room Air* 0 21 General Appearance: Alert, Oriented X3, Cooperative, mild distress HEENT: PERRLA Lungs: Clear to auscultation, Normal air movement Cardiovascular: Normal S1, Normal S2, Other (Sinus tachycardia) Abdomen: Normal bowel sounds Genitourinary: No Apparent Abnormalities Musculoskeletal: Normal sensory function, Normal motor function Extremities: No clubbing, No cyanosis, No edema, Normal pulses, No tenderness/swelling Neuro: Normal speech Psych/Mental Status: Mental status NL, Mood NL Medications Current Medications Medications Dose Ordered Sig/Amador Route Start Time Stop Time Status Last Admin Dose Admin Aspirin 162 mg DAILY PO 09/27/24 10:00 09/27/24 10:22 162 MG Atorvastatin Calcium 40 mg HS PO 09/27/24 22:00 Lisinopril 20 mg DAILY PO 09/27/24 10:00 09/27/24 10:23 20 MG Hydrochlorothiazide 12.5 mg DAILY PO 09/27/24 10:00 09/27/24 10:22 12.5 MG Ondansetron HCl 4 mg Q4HP PRN IV 09/26/24 23:00 09/26/24 23:41 4 MG Acetaminophen 650 mg Q6HP PRN PO 09/26/24 23:00 09/27/24 10:22 650 MG Nitroglycerin 0.4 mg Q5MINP PRN SL 09/26/24 23:00 Morphine Sulfate 2 mg Q30M PRN IV 09/26/24 23:00 09/27/24 02:34 2 MG Laboratory Results Laboratory Tests 09/26/24 21:01 09/27/24 03:21 Chemistry Test 09/26/24 21:01 09/27/24 03:21 Albumin 3.7 g/dL (3.2-4.8) Calcium Level 9.3 mg/dL (8.7-10.4) 9.1 mg/dL (8.7-10.4) Total Protein 7.3 g/dL (5.7-8.2) Cardiac Markers Test 09/26/24 21:01 B-Type Natriuretic Peptide 54.97 pg/mL (0-100) LFT Test 09/26/24 21:01 Alanine Aminotransferase (ALT) < 9 U/L (7-40) Alkaline Phosphatase 35 U/L (46-116) L Aspartate Amino Transferase (AST) 13 U/L (13-40) Total Bilirubin 0.4 mg/dL (0.2-1.0) Urinalysis Test 09/27/24 08:56 Urine Color Yellow (Yellow) Urine Clarity Turbid (Clear) H Urine pH 5.5 (5.0-9.0) Urine Specific [place] 1.023 (1.001-1.035) Urine Protein Trace (Negative) H Urine Ketones Negative (Negative) Urine Blood Negative /uL (Negative) Urine Nitrite Negative (Negative) Urine Bilirubin Negative (Negative) Urine Urobilinogen 3 mg/dL (Negative) H Urine Leukocyte Esterase 3+ /uL (Negative) Urine RBC 28 /hpf (0 - 4) Urine WBC 99 /hpf (0 - 5) Urine Squamous Epithelial Cells Few /hpf (<5) Urine Bacteria Few /hpf (None Seen) H Urine Mucus Few (None Seen) Urine Glucose Normal mg/dL (Normal) Labs and/or images reviewed: Labs reviewed by me, Image(s) reviewed by me Assessment/Plan Assessment/Plan Impression: -ACS ruled out -large hiatal hernia -obesity -primary hypertension -acute on chronic diastolic heart failure -pulmonary hypertension -mitral valve regurgitation Plan: -cardiology consultation: ACS ruled out -chest pain probably secondary to hiatal hernia. Start Protonix 40 mg p.o. b.i.d. -given echocardiogram results, give trial of calcium channel blockers for heart rate control as well as for pulmonary hypertension treatment -continue CHLOE inhibitor, hold hydrochlorothiazide given marginal blood pressure -potassium replacement -re-evaluate for discharge in a.m. discussed with primary nurse, Francesca. Total time spent with patient discussing and formulating plan of care: 35 minutes. This medical document was created using an electronic medical record system with [employer] system. Although this document has been carefully reviewed, there may still be some phonetic and typographical errors. These areas are purely typographical due to imperfections of the software programs, and do not reflect any compromise in the patient's medical care. Plan discussed with: Patient, Other (RN) Date of Service: Sep 27, 2024 Billing Provider: JODEE BAJWA NP Common Visit Codes: [id number] INP/OBS CARE(HIGH) JODEE BAJWA NP Sep 27, 2024 16:31
[2024-09-27 17:00] VITALS: BP 114/56; PULSE 102; RESP 18; TEMP 98.5; O2SAT 97
[2024-09-27] MEDS: PANTOPRAZOLE 40 MG TAB PO SCH (17:39)
[2024-09-27] MEDS: dilTIAZem 120MG ER CAP PO SCH (17:40)
[2024-09-27] MEDS: HYDROcodone-ACET 5/325MG TAB PO ONE (18:56)
[2024-09-27 20:00] VITALS: PULSE 110
[2024-09-27] MEDS: ATORVASTATIN 20 MG TAB PO SCH (21:53)
[2024-09-28] VITALS (8 sets, daily range): BP systolic 127–150; BP diastolic 38–75; PULSE 90–104; RESP 16–21; TEMP 97.9–98.4; O2SAT 92–99
[2024-09-28 09:45] LABS: Hepatitis B Surface Antigen Negative (Negative)
[2024-09-28 10:06] LABS: Hepatitis C Antibody Negative (Negative)
--- NOTE | 2024-09-28 13:14 | DVHPN2 ---
Subjective Patient continues to report having intermittent left lower chest pain, described as sharp in nature. Reviewed: Care Plan, H&P, Labs Changes from previous H/P or p: No Changes General: Per HPI Objective Vitals Vital Signs Date Time Temp Pulse Resp B/P (MAP) Pulse Ox O2 Delivery O2 Flow Rate FiO2 09/28/24 12:55 98.1 99 21 133/38 (69) 98 98.1 09/28/24 08:00 Room Air* 0 21 Intake/Output Intake and Output 09/28/24 07:00 Intake Total 200 ml Balance 200 ml Intake Oral 200 ml # Voids 9 General Appearance: Alert, Oriented X3, Cooperative, mild distress HEENT: PERRLA Lungs: Clear to auscultation, Normal air movement Cardiovascular: Normal S1, Normal S2, Other (Sinus tachycardia) Abdomen: Normal bowel sounds Genitourinary: No Apparent Abnormalities Musculoskeletal: Normal sensory function, Normal motor function Extremities: No clubbing, No cyanosis, No edema, Normal pulses, No tenderness/swelling Neuro: Normal speech Psych/Mental Status: Mental status NL, Mood NL Medications Current Medications Medications Dose Ordered Sig/Amador Route Start Time Stop Time Status Last Admin Dose Admin Aspirin 162 mg DAILY PO 09/27/24 10:00 09/28/24 10:27 162 MG Atorvastatin Calcium 40 mg HS PO 09/27/24 22:00 09/27/24 21:53 40 MG Lisinopril 20 mg DAILY PO 09/27/24 10:00 09/28/24 10:27 20 MG Ondansetron HCl 4 mg Q4HP PRN IV 09/26/24 23:00 09/26/24 23:41 4 MG Acetaminophen 650 mg Q6HP PRN PO 09/26/24 23:00 09/28/24 05:53 650 MG Nitroglycerin 0.4 mg Q5MINP PRN SL 09/26/24 23:00 Morphine Sulfate 2 mg Q30M PRN IV 09/26/24 23:00 09/27/24 02:34 2 MG Pantoprazole Sodium 40 mg BID@0600,1700 PO 09/27/24 17:00 09/28/24 05:53 40 MG Diltiazem HCl 120 mg DAILY PO 09/27/24 16:30 09/28/24 10:27 120 MG Laboratory Results Laboratory Tests 09/26/24 21:01 09/27/24 03:21 Urinalysis Test 09/27/24 08:56 Urine Color Yellow (Yellow) Urine Clarity Turbid (Clear) H Urine pH 5.5 (5.0-9.0) Urine Specific [place] 1.023 (1.001-1.035) Urine Protein Trace (Negative) H Urine Ketones Negative (Negative) Urine Blood Negative /uL (Negative) Urine Nitrite Negative (Negative) Urine Bilirubin Negative (Negative) Urine Urobilinogen 3 mg/dL (Negative) H Urine Leukocyte Esterase 3+ /uL (Negative) Urine RBC 28 /hpf (0 - 4) Urine WBC 99 /hpf (0 - 5) Urine Squamous Epithelial Cells Few /hpf (<5) Urine Bacteria Few /hpf (None Seen) H Urine Mucus Few (None Seen) Urine Glucose Normal mg/dL (Normal) Microbiology Microbiology Date/Time Source Procedure Growth Status 09/27/24 18:56 Nose MRSA Screen - Final Complete Labs and/or images reviewed: Labs reviewed by me, Image(s) reviewed by me Assessment/Plan Assessment/Plan Impression: -ACS ruled out -large hiatal hernia -obesity -primary hypertension -acute on chronic diastolic heart failure -pulmonary hypertension -mitral valve regurgitation Plan: Events: Patient continues to report having sharp left-sided chest pain. Patient also reports having burning to left thigh and calf. Pain not improved with PPI. -DVT study, check D-dimer -trial of Toradol for musculoskeletal pain -cardiology consultation: ACS ruled out -chest pain probably secondary to hiatal hernia. Continue Protonix 40 mg p.o. b.i.d. -given echocardiogram results, give trial of calcium channel blockers for heart rate control as well as for pulmonary hypertension treatment -continue CHLOE inhibitor, hold hydrochlorothiazide given marginal blood pressure -potassium replacement -re-evaluate for discharge in a.m. discussed with primary nurse, Francesca. Total time spent with patient discussing and formulating plan of care: 35 minutes. This medical document was created using an electronic medical record system with [employer] system. Although this document has been carefully reviewed, there may still be some phonetic and typographical errors. These areas are purely typographical due to imperfections of the software programs, and do not reflect any compromise in the patient's medical care. Plan discussed with: Patient, Other (RN) My Orders Orders - JOEDE BAJWA AERONAUTICAL INSPECTOR Procedure Category Date Status Time Pantoprazole Tablet PHA 09/27/24 In Process (Protonix Tablet) 17:00 Diltiazem Er Capsule PHA 09/27/24 In Process (Cardizem Er Capsul 16:30 D-Dimer LAB 09/28/24 Verified 13:12 Bilat Lower Dvt US 09/28/24 Verified 13:12 Date of Service: Sep 28, 2024 Billing Provider: JODEE BAJWA NP Common Visit Codes: [id number] INP/OBS CARE(HIGH) JODEE BAJWA NP Sep 28, 2024 13:14
--- NOTE | 2024-09-28 15:16 | DVH ---
Bilateral lower extremity venous duplex Clinical History: Persistent burning pain, more so noted to left lower extremi Comparison: US BILAT LOWER DVT on DOS: 07/07/24, VENOUS DVT BILAT on DOS: 10/12/20 Technique: Duplex Doppler evaluation of the deep venous systems of both lower extremities from the common femora l veins to the popliteal veins including color Doppler and spectral/pulsed waveform analysis was perf ormed. Findings: RIGHT SIDE: The common femoral vein demonstrates appropriate compressibility and waveform variability. There is compressibility/patency of the great saphenous vein at the proximal thigh. The femoral vein demonstrates appropriate compressibility and waveform variability. The deep femoral vein demonstrates appropriate compressibility and waveform variability. The popliteal vein demonstrates appropriate compressibility and waveform variability. There is normal compressibility at the tibioperoneal trunk. LEFT SIDE: The common femoral vein demonstrates appropriate compressibility and waveform variability. There is compressibility/patency of the great saphenous vein at the proximal thigh. The femoral vein demonstrates appropriate compressibility and waveform variability. The deep femoral vein demonstrates appropriate compressibility and waveform variability. The popliteal vein demonstrates appropriate compressibility and waveform variability. There is normal compressibility at the tibioperoneal trunk. Impression: 1. No right or left femoropopliteal venous thrombosis. 2 cm left groin lymph node noted.
[2024-09-28] MEDS: KETOROLAC TROMETH 30 MG/ML 1ML VIAL IV ONE (15:51)
[2024-09-28] MEDS: cefTRIAXone 1GM/50ML D5W 50 ML IV SCH (16:57)
[2024-09-29] VITALS (9 sets, daily range): BP systolic 104–154; BP diastolic 43–119; PULSE 100–114; RESP 17–18; TEMP 98–98.6; O2SAT 97–99
--- NOTE | 2024-09-29 09:53 | ECG ---
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
--- NOTE | 2024-09-29 13:43 | DVHPN2 ---
Subjective Patient continues to report having intermittent left lower chest pain, described as sharp in nature. Reviewed: Care Plan, H&P, Labs Changes from previous H/P or p: No Changes General: Per HPI Objective Vitals Vital Signs Date Time Temp Pulse Resp B/P (MAP) Pulse Ox O2 Delivery O2 Flow Rate FiO2 09/29/24 09:44 101 104/59 09/29/24 09:00 98.4 18 98 98.4 09/29/24 07:50 Room Air* 0 21 Intake/Output Intake and Output 09/29/24 07:00 Intake Total 1280 ml Output Total 600 ml Balance 680 ml Intake Oral 1230 ml IV Total 50 ml Output Urine Total 600 ml # Voids 4 General Appearance: Alert, Oriented X3, Cooperative, mild distress HEENT: PERRLA Lungs: Clear to auscultation, Normal air movement Cardiovascular: Normal S1, Normal S2, Other (Sinus tachycardia) Abdomen: Normal bowel sounds Genitourinary: No Apparent Abnormalities Musculoskeletal: Normal sensory function, Normal motor function Extremities: No clubbing, No cyanosis, No edema, Normal pulses, No tenderness/swelling Neuro: Normal speech Psych/Mental Status: Mental status NL, Mood NL Medications Current Medications Medications Dose Ordered Sig/Amador Route Start Time Stop Time Status Last Admin Dose Admin Aspirin 162 mg DAILY PO 09/27/24 10:00 09/29/24 09:25 162 MG Atorvastatin Calcium 40 mg HS PO 09/27/24 22:00 09/28/24 22:59 40 MG Lisinopril 20 mg DAILY PO 09/27/24 10:00 09/28/24 10:27 20 MG Ondansetron HCl 4 mg Q4HP PRN IV 09/26/24 23:00 09/26/24 23:41 4 MG Acetaminophen 650 mg Q6HP PRN PO 09/26/24 23:00 09/29/24 06:21 650 MG Nitroglycerin 0.4 mg Q5MINP PRN SL 09/26/24 23:00 Morphine Sulfate 2 mg Q30M PRN IV 09/26/24 23:00 09/27/24 02:34 2 MG Pantoprazole Sodium 40 mg BID@0600,1700 PO 09/27/24 17:00 09/29/24 06:17 40 MG Diltiazem HCl 120 mg DAILY PO 09/27/24 16:30 09/28/24 10:27 120 MG Ceftriaxone Sodium 50 ml @ 100 mls/hr DAILY@09 IV 09/28/24 15:15 09/29/24 09:23 100 MLS/HR Laboratory Results Laboratory Tests 09/26/24 21:01 09/27/24 03:21 Coagulation Test 09/28/24 13:50 D-Dimer, Quantitative 0.93 mg/L FEU (0.0-0.49) H Urinalysis Test 09/27/24 08:56 Urine Color Yellow (Yellow) Urine Clarity Turbid (Clear) H Urine pH 5.5 (5.0-9.0) Urine Specific [place] 1.023 (1.001-1.035) Urine Protein Trace (Negative) H Urine Ketones Negative (Negative) Urine Blood Negative /uL (Negative) Urine Nitrite Negative (Negative) Urine Bilirubin Negative (Negative) Urine Urobilinogen 3 mg/dL (Negative) H Urine Leukocyte Esterase 3+ /uL (Negative) Urine RBC 28 /hpf (0 - 4) Urine WBC 99 /hpf (0 - 5) Urine Squamous Epithelial Cells Few /hpf (<5) Urine Bacteria Few /hpf (None Seen) H Urine Mucus Few (None Seen) Urine Glucose Normal mg/dL (Normal) Microbiology Microbiology Date/Time Source Procedure Growth Status 09/27/24 18:56 Nose MRSA Screen - Final Complete Labs and/or images reviewed: Labs reviewed by me, Image(s) reviewed by me Assessment/Plan Assessment/Plan Impression: -ACS ruled out -large hiatal hernia -obesity -primary hypertension -acute on chronic diastolic heart failure -pulmonary hypertension -mitral valve regurgitation Plan: Events: Continued to have intermittent left-sided chest pain. Negative DVT study. D-dimer elevated. CT angiogram of the chest pending. Toradol did improved patient's pain. Trial of anti-inflammatories -cardiology consultation: ACS ruled out -chest pain probably secondary to hiatal hernia. Continue Protonix 40 mg p.o. b.i.d. -given echocardiogram results, give trial of calcium channel blockers for heart rate control as well as for pulmonary hypertension treatment -continue CHLOE inhibitor, hold hydrochlorothiazide given marginal blood pressure -potassium replacement -re-evaluate for discharge in a.m. discussed with primary nurse, Francesca. Total time spent with patient discussing and formulating plan of care: 35 minutes. This medical document was created using an electronic medical record system with [employer] dictation system. Although this document has been carefully reviewed, there may still be some phonetic and typographical errors. These areas are purely typographical due to imperfections of the software programs, and do not reflect any compromise in the patient's medical care. Plan discussed with: Patient, Other (RN) My Orders Orders - JODEE BAJWA NP Procedure Category Date Status Time Ceftriaxone 1gm/50ml PHA 09/28/24 In Process D5w (Rocephin) 15:[address] 09/29/24 Logged Contrast 08:29 Date of Service: Sep 29, 2024 Billing Provider: JODEE BAJWA NP Common Visit Codes: [id number] INP/OBS CARE(HIGH) JODEE BAJWA NP Sep 29, 2024 13:43
--- NOTE | 2024-09-29 14:24 | DVH ---
INDICATION: CHEST PAIN; RULE OUT PE TECHNIQUE: Multidetector CTA of the chest was performed of the chest with 100 cc of intravenous contr ast. PULMONARY ANGIOGRAPHY PROTOCOL was utilized using a bolus-tracking technique centered on the erica n pulmonary artery. Axial, coronal and sagittal multiplanar and MIP reformats were performed. Radiation Dose Information: CT Dose: CTDI volume is [CTDIvol] mGy. Dose-length product is [DLP] mGy*cm The dose indicators for CT are the volume Computed Tomography (CT) Dose Index (CTDIvol) and the Dose Length Product (DLP), and are measured in units of mGy and mGy-cm, respectively. These indicators are not patient dose, but values generated from the CT scanner acquisition factors. The report includes radiation exposure data for exposures received during this examination. Findings: Pulmonary artery: Normal caliber of the pulmonary artery. No large central or segmental pulmonary .arterial filling defect to suggest pulmonary embolism. Lungs: No focal consolidation, pulmonary mass, or suspicious pulmonary nodule. There are scattered ar eas pleural-parenchymal scarring bilaterally. Heart/Vascular Structures: There is mild cardiomegaly. Thoracic aorta demonstrates normal caliber. Lymph Nodes: There are prominent paratracheal lymph nodes measuring up to 1.4 cm. There are also mul tiple bilateral axillary lymph nodes many of which are borderline in size. There is a 1.3 cm left axi llary lymph node. Pleura: No pleural effusion or significant pneumothorax. Musculoskeletal: No acute osseous abnormality. Upper abdomen: There is a large hiatal hernia. Gallbladder is surgically absent. IMPRESSION: 1. There is no evidence of a pulmonary arterial filling defects to suggest pulmonary embolism. 2. There are prominent paratracheal mediastinal lymph nodes measuring up to 1.4 cm. There are multipl e bilateral axillary lymph nodes many which are borderline in size. There is a 1.3 cm left axillary lymph node. Etiology is nonspecific. These may represent reactive lymph nodes. Clinical correlation and comparison with any available prior CT studies is recommended. None are available, a follow-up s melody in 3 months is recommended. 3. Large hiatal hernia. HS:Y
[2024-09-29] MEDS: HYDROcodone-ACET 5/325MG TAB PO PRN (17:55)
[2024-09-30] VITALS (8 sets, daily range): BP systolic 95–154; BP diastolic 39–71; PULSE 94–111; RESP 17–20; TEMP 97.5–98.4; O2SAT 97–100
[2024-09-30] MEDS: HYDROcodone-ACET 5/325MG TAB PO PRN (04:08)
[2024-09-30 04:46] LABS: Chloride 104 mmol/L (98-107); Potassium 3.6 mmol/L (3.5-5.1); Sodium 139 mmol/L (136-145)
[2024-09-30 04:47] LABS: Anion Gap 8 (5-15); Carbon Dioxide 27 mmol/L (20-31)
[2024-09-30 04:48] LABS: Calcium 9.6 mg/dL (8.7-10.4)
[2024-09-30 04:52] LABS: Glucose 99 mg/dL (74-106)
[2024-09-30 04:53] LABS: BUN/Creatinine Ratio 17.3 (10.0-20.0); Blood Urea Nitrogen 13 mg/dL (9-23); CRP High Sensitivity 0.06 mg/dL (<1.0)
[2024-09-30 05:09] LABS: Erythrocyte Sedimentation Rate 10 mm/hr (0-20)
--- NOTE | 2024-09-30 16:08 | DVHPN2 ---
Subjective 73-year-old female who was admitted for chest pain PE was ruled out The patient has a history of rheumatoid arthritis She also has a UTI Reviewed: Care Plan, H&P, Labs Changes from previous H/P or p: Changes General: Per HPI Objective Vitals Vital Signs Date Time Temp Pulse Resp B/P (MAP) Pulse Ox O2 Delivery O2 Flow Rate FiO2 09/30/24 12:49 98.2 102 20 114/62 (79) 99 98.2 09/30/24 08:05 Room Air* 0 21 Intake/Output Intake and Output 09/30/24 07:00 Intake Total 1000 ml Balance 1000 ml Intake Oral 950 ml IV Total 50 ml # Voids 6 General Appearance: Alert, Oriented X3, Cooperative, mild distress HEENT: PERRLA Lungs: Clear to auscultation, Normal air movement Cardiovascular: Normal S1, Normal S2, Other (Sinus tachycardia) Abdomen: Normal bowel sounds Genitourinary: No Apparent Abnormalities Musculoskeletal: Normal sensory function, Normal motor function Extremities: No clubbing, No cyanosis, No edema, Normal pulses, No tenderness/swelling Neuro: Normal speech Psych/Mental Status: Mental status NL, Mood NL Medications Current Medications Medications Dose Ordered Sig/Amador Route Start Time Stop Time Status Last Admin Dose Admin Aspirin 162 mg DAILY PO 09/27/24 10:00 09/30/24 10:12 162 MG Atorvastatin Calcium 40 mg HS PO 09/27/24 22:00 09/29/24 22:01 40 MG Lisinopril 20 mg DAILY PO 09/27/24 10:00 09/30/24 10:13 20 MG Ondansetron HCl 4 mg Q4HP PRN IV 09/26/24 23:00 09/26/24 23:41 4 MG Acetaminophen 650 mg Q6HP PRN PO 09/26/24 23:00 09/29/24 06:21 650 MG Nitroglycerin 0.4 mg Q5MINP PRN SL 09/26/24 23:00 Morphine Sulfate 2 mg Q30M PRN IV 09/26/24 23:00 09/27/24 02:34 2 MG Pantoprazole Sodium 40 mg BID@0600,1700 PO 09/27/24 17:00 09/30/24 05:33 40 MG Diltiazem HCl 120 mg DAILY PO 09/27/24 16:30 09/30/24 10:14 120 MG Ceftriaxone Sodium 50 ml @ 100 mls/hr DAILY@09 IV 09/28/24 15:15 09/30/24 10:17 100 MLS/HR Acetaminophen/ Hydrocodone Bitart 1 tab Q4HPRN PRN PO 09/29/24 22:15 09/30/24 10:17 1 TAB Laboratory Results Laboratory Tests 09/26/24 21:01 09/30/24 03:49 Chemistry Test 09/30/24 03:49 Calcium Level 9.6 mg/dL (8.7-10.4) Urinalysis Test 09/27/24 08:56 Urine Color Yellow (Yellow) Urine Clarity Turbid (Clear) H Urine pH 5.5 (5.0-9.0) Urine Specific [place] 1.023 (1.001-1.035) Urine Protein Trace (Negative) H Urine Ketones Negative (Negative) Urine Blood Negative /uL (Negative) Urine Nitrite Negative (Negative) Urine Bilirubin Negative (Negative) Urine Urobilinogen 3 mg/dL (Negative) H Urine Leukocyte Esterase 3+ /uL (Negative) Urine RBC 28 /hpf (0 - 4) Urine WBC 99 /hpf (0 - 5) Urine Squamous Epithelial Cells Few /hpf (<5) Urine Bacteria Few /hpf (None Seen) H Urine Mucus Few (None Seen) Urine Glucose Normal mg/dL (Normal) Microbiology Microbiology Date/Time Source Procedure Growth Status 09/27/24 18:56 Nose MRSA Screen - Final Complete Assessment/Plan Assessment/Plan Musculoskeletal chest pain Underlying rheumatoid arthritis UTI Hypertension Dyslipidemia GERD Hypokalemia Wheelchair-bound Morbid obesity Plan Continue Rocephin IV Aspirin Lipitor Cardizem Lisinopril [place] p.r.n. for pain Plan discussed with: Patient Date of Service: Sep 30, 2024 Billing Provider: BRANDON STRAUSS MD Common Visit Codes: [id number] INP/OBS CARE(HIGH) BRANDON STRAUSS MD Sep 30, 2024 16:08
[2024-10-01] VITALS (8 sets, daily range): BP systolic 100–123; BP diastolic 46–88; PULSE 89–124; RESP 16–20; TEMP 97.5–98.2; O2SAT 94–100
--- NOTE | 2024-10-01 11:13 | DVHPN2 ---
Subjective No new complaints Occasional chest pain Complains of bilateral knee pain Reviewed: Care Plan, H&P, Labs Changes from previous H/P or p: Changes General: Per HPI Objective Vitals Vital Signs Date Time Temp Pulse Resp B/P (MAP) Pulse Ox O2 Delivery O2 Flow Rate FiO2 10/01/24 09:08 89 100/46 10/01/24 09:00 98.0 20 99 98.0 09/30/24 20:00 Room Air* 0 21 Intake/Output Intake and Output 10/01/24 07:00 Intake Total 855 ml Balance 855 ml Intake Oral 805 ml IV Total 50 ml # Voids 3 General Appearance: Alert, Oriented X3, Cooperative, mild distress HEENT: PERRLA Lungs: Clear to auscultation, Normal air movement Cardiovascular: Normal S1, Normal S2, Other (Sinus tachycardia) Abdomen: Normal bowel sounds Genitourinary: No Apparent Abnormalities Musculoskeletal: Normal sensory function, Normal motor function Extremities: No clubbing, No cyanosis, No edema, Normal pulses, No tenderness/swelling Neuro: Normal speech Psych/Mental Status: Mental status NL, Mood NL Medications Current Medications Medications Dose Ordered Sig/Amador Route Start Time Stop Time Status Last Admin Dose Admin Aspirin 162 mg DAILY PO 09/27/24 10:00 10/01/24 09:07 162 MG Atorvastatin Calcium 40 mg HS PO 09/27/24 22:00 09/30/24 20:42 40 MG Lisinopril 20 mg DAILY PO 09/27/24 10:00 09/30/24 10:13 20 MG Ondansetron HCl 4 mg Q4HP PRN IV 09/26/24 23:00 09/26/24 23:41 4 MG Acetaminophen 650 mg Q6HP PRN PO 09/26/24 23:00 09/30/24 20:42 650 MG Nitroglycerin 0.4 mg Q5MINP PRN SL 09/26/24 23:00 Morphine Sulfate 2 mg Q30M PRN IV 09/26/24 23:00 09/27/24 02:34 2 MG Pantoprazole Sodium 40 mg BID@0600,1700 PO 09/27/24 17:00 10/01/24 06:07 40 MG Diltiazem HCl 120 mg DAILY PO 09/27/24 16:30 10/01/24 09:08 120 MG Ceftriaxone Sodium 50 ml @ 100 mls/hr DAILY@09 IV 09/28/24 15:15 10/01/24 09:09 100 MLS/HR Acetaminophen/ Hydrocodone Bitart 1 tab Q4HPRN PRN PO 09/29/24 22:15 10/01/24 09:06 1 TAB Laboratory Results Laboratory Tests 09/26/24 21:01 09/30/24 03:49 Urinalysis Test 09/27/24 08:56 Urine Color Yellow (Yellow) Urine Clarity Turbid (Clear) H Urine pH 5.5 (5.0-9.0) Urine Specific [place] 1.023 (1.001-1.035) Urine Protein Trace (Negative) H Urine Ketones Negative (Negative) Urine Blood Negative /uL (Negative) Urine Nitrite Negative (Negative) Urine Bilirubin Negative (Negative) Urine Urobilinogen 3 mg/dL (Negative) H Urine Leukocyte Esterase 3+ /uL (Negative) Urine RBC 28 /hpf (0 - 4) Urine WBC 99 /hpf (0 - 5) Urine Squamous Epithelial Cells Few /hpf (<5) Urine Bacteria Few /hpf (None Seen) H Urine Mucus Few (None Seen) Urine Glucose Normal mg/dL (Normal) Microbiology Microbiology Date/Time Source Procedure Growth Status 09/27/24 18:56 Nose MRSA Screen - Final Complete Assessment/Plan Assessment/Plan Musculoskeletal chest pain Underlying rheumatoid arthritis UTI Hypertension Dyslipidemia GERD Hypokalemia Wheelchair-bound Morbid obesity Plan 09/30/2024: Continue Rocephin IV Aspirin Lipitor Cardizem Lisinopril [place] p.r.n. for pain 10/01/2024: UTI: Rocephin IV Chest pain, atypical: [place] p.r.n. Aspirin Lipitor and Cardizem and lisinopril Discharge planning for tomorrow Plan discussed with: Patient Date of Service: Oct 01, 2024 Billing Provider: BRANDON STRAUSS MD Common Visit Codes: [id number] INP/OBS CARE(HIGH) BRANDON STRAUSS MD Oct 01, 2024 11:13
[2024-10-01] MEDS: IOHEXOL 350 MG/ML 100ML IJ ONE (17:49)
[2024-10-02] VITALS (7 sets, daily range): BP systolic 93–132; BP diastolic 56–69; PULSE 96–111; RESP 16–18; TEMP 97.7–98.1; O2SAT 97–99
[2024-10-02] MEDS: LACTULOSE 20Gm/30ML SOLN PO ONE (14:21)
--- NOTE | 2024-10-02 16:20 | DVHDS2 ---
Discharge Summary Date of Admission Sep 26, 2024 at 22:55 Date of Discharge: Oct 02, 2024 Admitting Diagnosis Chest pain, rule out ACS Labs/Diagnostic Data: Laboratory Results Test 09/30/24 03:49 09/28/24 13:50 09/27/24 08:56 09/27/24 00:19 Erythrocyte Sedimentation Rate 10 mm/hr (0-20) Sodium Level 139 mmol/L (136-145) Potassium Level 3.6 mmol/L (3.5-5.1) Chloride Level 104 mmol/L (98-107) Carbon Dioxide Level 27 mmol/L (20-31) Anion Gap 8 (5-15) Blood Urea Nitrogen 13 mg/dL (9-23) Creatinine 0.75 mg/dL (0.550-1.02) Glomerular Filtration Rate Calc 85 mL/min (>90) BUN/Creatinine Ratio 17.3 (10.0-20.0) Serum Glucose 99 mg/dL (74-106) Calcium Level 9.6 mg/dL (8.7-10.4) Lactate Dehydrogenase 244 U/L (120-246) C-Reactive Protein High Sensitivity 0.06 mg/dL (<1.0) D-Dimer, Quantitative 0.93 mg/L FEU (0.0-0.49) Urine Color Yellow (Yellow) Urine Clarity Turbid (Clear) Urine pH 5.5 (5.0-9.0) Urine Specific [place] 1.023 (1.001-1.035) Urine Protein Trace (Negative) Urine Ketones Negative (Negative) Urine Blood Negative /uL (Negative) Urine Nitrite Negative (Negative) Urine Bilirubin Negative (Negative) Urine Urobilinogen 3 mg/dL (Negative) Urine Leukocyte Esterase 3+ /uL (Negative) Urine RBC 28 /hpf (0 - 4) Urine WBC 99 /hpf (0 - 5) Urine Squamous Epithelial Cells Few /hpf (<5) Urine Bacteria Few /hpf (None Seen) Urine Mucus Few (None Seen) Urine Glucose Normal mg/dL (Normal) Troponin I High Sensitivity 8 ng/L (</=34) Hepatitis B Surface Antigen Negative (Negative) Hepatitis C Antibody Negative (Negative) Test 09/26/24 21:01 White Blood Count 10.1 10^3/uL (4.4-10.8) Red Blood Count 5.73 10^6/uL (4.0-5.20) Hemoglobin 11.5 g/dL (12.2-16.2) Hematocrit 37.8 % (36.0-46.0) Mean Corpuscular Volume 66.1 fL (80.0-100.0) Mean Corpuscular Hemoglobin 20.1 pg (28.0-32.0) Mean Corpuscular Hemoglobin Concent 30.4 g/dL (32.0-36.0) Red Cell Distribution Width 19.2 % (11.8-14.3) Platelet Count 501 10^3/uL (140-450) Mean Platelet Volume 8.3 fL (6.9-10.8) Neutrophils (%) (Auto) 68.2 % (37.0-80.0) Lymphocytes (%) (Auto) 20.3 % (10.0-50.0) Monocytes (%) (Auto) 8.3 % (0.0-12.0) Eosinophils (%) (Auto) 1.5 % (0.0-7.0) Basophils (%) (Auto) 1.7 % (0.0-2.0) Neutrophils # (Auto) 6.9 10 ^3/uL (1.6-8.6) Lymphocytes # (Auto) 2.0 10 ^3/uL (0.4-5.4) Monocytes # (Auto) 0.8 10 ^3/uL (0-1.3) Eosinophils # (Auto) 0.2 10 ^3/uL (0-0.8) Basophils # (Auto) 0.2 10 ^3/uL (0-0.2) Nucleated Red Blood Cells 0.1 % Total Bilirubin 0.4 mg/dL (0.2-1.0) Aspartate Amino Transferase (AST) 13 U/L (13-40) Alanine Aminotransferase (ALT) < 9 U/L (7-40) Alkaline Phosphatase 35 U/L (46-116) B-Type Natriuretic Peptide 54.97 pg/mL (0-100) Total Protein 7.3 g/dL (5.7-8.2) Albumin 3.7 g/dL (3.2-4.8) Other Laboratory Tests 09/30/24 03:49 09/26/24 21:01 Brief Hx & Hospital Course: History of Present Illness 73-year-old female presents for evaluation of chest pain. The patient endorses a two day history of left-sided intermittent sharp chest pain that occasionally radiates to her back. She reports occasional shortness of breath with nausea. No emesis. No cough or fever. No other acute complaints reported. Course of hospitalization: Patient had echocardiogram, troponins x3 which were negative. Echocardiogram reveals pulmonary hypertension with elevated right ventricular systolic pressure. Cardiology consultation was obtained, with them signing off, not needing to perform a cardiac stress test or other ischemia workup. The patient continued to have chest pain, intermittently. Chest x-ray reveals large hiatal hernia, for which PPI therapy was started. Patient continued to have chest pain. Trial of Toradol was given to the patient which did relieve her chest pain. CT angiogram of the chest was also performed as well as DVT study of her lower extremity. Noted multiple areas of lymphadenopathy to the chest and axillary area, negative for pulmonary embolism. No acute pulmonary cardiac disease noted. The patient is cleared to be discharged home. She was instructed to follow up with her PCP in 1-2 weeks. All questions answered. Physical examination General: Alert and Oriented x3. No acute distress. Well-nourished. Obese Eyes: EOMI. Anicteric. HENT: Moist mucous membranes. Lungs: Clear to auscultation bilaterally. No accessory muscle use. Cardiovascular: Regular rate and rhythm. No murmur. No JVD. Abdomen: Soft, non-tender and non-distended. No palpable masses. Extremities: No edema. Non-tender. Skin: No rashes or lesions. Warm. Neurologic: No focal neurological deficits. CN II-XII grossly intact, but not individually tested. Psychiatric: Cooperative. Appropriate mood and affect. Total time spent with patient discussing and formulating plan of care: 35 minutes. This medical document was created using an electronic medical record system with [employer] dictation system. Although this document has been carefully reviewed, there may still be some phonetic and typographical errors. These areas are purely typographical due to imperfections of the software programs, and do not reflect any compromise in the patient's medical care. Consults/Reason for consult Cardiology: Rule out ACS Condition at Discharge: Fair Final Diagnosis/Problems List Chest pain secondary to Rheumatiod Arthritis Secondary Diagnosis: -ACS ruled out -large hiatal hernia -obesity -primary hypertension -acute on chronic diastolic heart failure -pulmonary hypertension -mitral valve regurgitation -rheumatoid arthritis Discharge Disposition: Home Discharge Instruct/Medications Diet: Consistent carbohydrate, Cardiac 2g Na,low cholest Activity: No Restrictions, As Tolerated Follow Up/Referral: PCP in 1-2 weeks Medications: These home medications Cardizem XL 120 mg p.o. daily 36 Discharge Statement: "Patient was advised to return to the ER or call 911 if any headaches, dizziness, shortness of breath, chest pain, abdominal pain, bleeding, fevers, or worsening of medical condition. Patient was counseled about treatment plan, medications, possible side effects, patientverbalized understanding. All questions were answered to the best of my ability. This discharge took greater then 30 minutes in planning, reviewing documentation, counseling the patient, and discussing with other team members." ASSESSMENT ASSESSMENT Assessment Chest pain secondary to Rheumatiod Arthritis Date of Service: Oct 02, 2024 Billing Provider: JODEE BAJWA NP Common Visit Codes: 69850-UKQ/OBS DISCH DAY >30min JODEE BAJWA NP Oct 02, 2024 16:20
[2024-10-02] MEDS ORDERED: DILT120T16 PO (16:24)
[2024-10-02] MEDS: FLEET ENEMA(ADULT) 135 ML PR ONE (16:30)
[2024-10-02] MEDS: LACTULOSE 20Gm/30ML SOLN PO SCH (22:00)
[2024-10-03] VITALS (7 sets, daily range): BP systolic 108–129; BP diastolic 53–83; PULSE 89–97; RESP 16–18; TEMP 36.2; O2SAT 98–100
[2024-10-03] MEDS ORDERED: TRAM50TA2 PO (13:29)
== END 2024-10-03 17:05 | disposition home or self-care (01) | DRG 545 ==
LOC: ER 20:47 → TELE 22:55 → TELE-WESTW 09-27 14:50
PROVIDERS: ADMIT Internal Medicine Geriatric Medicine; ATTEND Nurse Practitioner Acute Care
DX: M06.9 Rheumatoid arthritis, unspecified (principal); I50.33 Acute on chronic diastolic (congestive) heart failure; N39.0 Urinary tract infection, site not specified; I11.0 Hypertensive heart disease with heart failure; E87.6 Hypokalemia; E78.5 Hyperlipidemia, unspecified; E66.01 Morbid (severe) obesity due to excess calories; I27.20 Pulmonary hypertension, unspecified; K44.9 Diaphragmatic hernia without obstruction or gangrene; K21.9 Gastro-esophageal reflux disease without esophagitis; I08.1 Rheumatic disorders of both mitral and tricuspid valves; K59.00 Constipation, unspecified; Z90.49 Acquired absence of other specified parts of digestive tract; Z99.3 Dependence on wheelchair; Z82.49 Family history of ischemic heart disease and other diseases of the circulatory system; Z83.3 Family history of diabetes mellitus; Z90.710 Acquired absence of both cervix and uterus; Z68.32 Body mass index [BMI] 32.0-32.9, adult
CPT/HCPCS: 36415; 71045; 71275; 80048; 80053; 81001; 83615; 83880; 84484; 85025; 85379; 85652; 86141; 86803; 87081; 87340; 93005; 93970; G0378; J1885; J2405

== ENCOUNTER 2024-11-23 15:56 | Inpatient (IN) | payer MEDICARE, MEDICAID ==
[~2024-11-23] VITALS: Ht 170.2 cm; Wt 100.9 kg
[~2024-11-23 15:56] MED LIST changes: +DILT120T16 PO; -DOCU-94 PO; -HYDR-4902 PO; -HYDR12.55 PO; -LISI10TA34 PO; -LISI2.5T47 PO; -PANT40TA2 PO; -POLY335015 PO; -PRED20TA2 PO; -SENN1TAB49 PO; +TRAM50TA2 PO
--- NOTE | 2024-11-23 16:37 | ED.PDOC ---
History of Present Illness HPI Comments 73 y/o F, Hx of arthritis, GERD, HLD, HTN, and UTI's, is BIBA for c/o generalized weakness and bilateral knee pain and swelling, today. Per EMS report, patient's family called, endorsing on patient getting progressively weak and complaining of swelling and non-radiating and sharp, 10/10 bilateral knee pain these past 2x days. Patient was also reported by family to having been urinating more frequently and was on antibiotics for a UTI she had 2x months ago. Patient was found on scene by EMS A&O, with an odorous urine smell, a blood glucose of 118, a pulse rate of 105. All remaining vitals were stated to have been normal and within normal limits en route. At time of assessment, patient comments on symptoms being chronic and going for "awhile." She denies having any chest pain, shortness of breath, fever, chills, dysuria, or other associated symptoms or modifiers at this time. Chief Complaint: General Weakness Time Seen by MD: 16:20 Primary Care Provider: None Reviewed Notes: Nurses Notes, Senior Government Program Analyst Notes, Medications, Allergies Allergies: Coded Allergies: NO KNOWN ALLERGIES (Unverified , 08/19/16) Home Meds Active Scripts Tramadol Hcl (Tramadol Hcl) 50 Mg Tab, 50 MG PO Q8HPRN PRN for 5 Days, #15 TAB Prov:OJDEE BAJWA NUCLEAR PLANT OPERATOR 10/03/24 Diltiazem HCl (Diltiazem Hci ER) 120 Mg Tab, 120 MG PO DAILY for 30 Days, #30 TAB 1 Refill Prov:JODEE BAJWA NUCLEAR PLANT OPERATOR 10/02/24 Lisinopril (Lisinopril) 20 Mg Tab, 1 TAB PO DAILY for 30 Days, #30 TAB 5 Refills Prov:SANTOS BAXTER RESIDENT 07/11/24 Pantoprazole Sodium Sesquihydr (Pantoprazole Sodium) 40 Mg Tab, 40 MG PO DAILY for 30 Days, #30 TAB Prov:SANTOS BAXTER RESIDENT 07/11/24 Ferrous Sulfate (Iron) 325 Mg Tab, 325 MG PO DAILY for 30 Days, #30 TAB Prov:SANTOS BAXTER RESIDENT 07/11/24 Atorvastatin Calcium (Lipitor) 40 Mg Tab, 1 TAB PO DAILY, #30 TAB 5 Refills Prov:DERIAN BLUM MD 06/12/24 Information Source: Patient, Emergency Med Personnel Mode of Arrival: EMS Severity: Moderate Timing: Days Duration: Since onset Prehospital treatment: 12 Lead EKG, Accucheck, Behaviour Support Teacher Past Medical History PAST MEDICAL HISTORY: Arthritis, GERD, High Lipids, HTN, UTI'S Surgical History: Appendectomy, Cholecystectomy, Hernia Repair, Hysterectomy Surgical History (Other): left-arm Sx BEAM DOFFER History: No Pertinent BEAM DOFFER History Family History Family History: Reviewed,noncontributory to illness, Family hx of DM, Family hx of Cancer, Family hx of heart payam Social History Smoker: Non-Smoker Alcohol: Denies ETOH Use Drugs: Denies Drug Use Lives In: Home, Assisted Care Constitutional: denies: chills, diaphoresis, fatigue, fever, malaise, sweats, weakness, others EENTM: denies: blurred vision, double vision, ear bleeding, ear discharge, ear drainage, ear pain, ear ringing, eye pain, eye redness, hearing loss, mouth pain, mouth swelling, nasal discharge, nose bleeding, nose congestion, nose pain, photophobia, tearing, throat pain, throat swelling, voice changes, others Respiratory: denies: cough, hemoptysis, orthopnea, SOB at rest, shortness of breath, SOB with excertion, stridor, wheezing, others Cardiovascular: denies: chest pain, dizzy spells, diaphoresis, Dyspnea on exertion, edema, irregular heart beat, left arm pain, lightheadedness, palpitations, PND, syncope, others Gastrointestinal: denies: abdomen distended, abdominal pain, blood streaked bowels, constipated, diarrhea, dysphagia, difficulty swallowing, hematemesis, melena, nausea, poor appetite, poor fluid intake, rectal bleeding, rectal pain, vomiting, others Genitourinary: denies: abnormal vagina bleeding, burning, dyspareunia, dysuria, flank pain, frequency, hematuria, incontinence, pain, , vagina discharge, urgency, others Neurological: reports: weakness (generalized ); denies: dizziness, fainting, headache, left sided numbness, left sided weakness, numbness, paresthesia, pre- existing deficit, right sided numbness, right sided weakness, seizure, speech problems, tingling, tremors, others Musculoskeletal: reports: others (bilateral knee pain and swelling); denies: back pain, gout, joint pain, joint swelling, muscle pain, muscle stiffness, neck pain Integumetry: denies: bruises, change in color, change in hair/nails, dryness, laceration, lesions, lumps, rash, wounds, others Allergic/Immunocompromised: denies: Difficulty Healing, Frequent Infections, Hives, Itching, others Hematologic/Lymphatic: denies: anemia, blood clots, easy bleeding, easy bruising, swollen glands, others Endocrine: denies: excessive hunger, excessive sweating, excessive thirst, excessive urination, flushing, intolerance to cold, intolerance to heat, unexplained weight gain, unexplained weight loss, others Psychiatric: denies: anxiety, bipolar disorder, depression, hopeless, panic d isorder, schizophrenia, sleepless, suicidal, others All Other Systems: Reviewed and Negative Physical Exam General Appearance: Moderate Distress HEENT: Normal ENT Inspection, Pharynx Normal, TMs Normal Neck: Full Range of Motion, Non-Tender, Normal, Normal Inspection Respiratory: Chest Non-Tender, Lungs Clear, No Accessory Muscle Use, No Respiratory Distress, Normal Breath Sounds Cardiovascular: No Edema, No JVD, No Murmur, No Gallop, Normal Peripheral Pulses, Regular Rate/Rhythm Breast Exam: Deferred Gastrointestinal: No Organomegaly, Non Tender, No Pulsatile Mass, Normal Bowel Sounds, Soft Genitalia: Deferred Pelvic: Deferred Rectal: Deferred Extremities: No calf tenderness, Normal capillary refill, Pedal edema Musculoskeletal : Apperance: Normal Neurologic: Alert, guest relations coordinator II-XII nml as Tested, No Motor Deficits, Normal Affect, Normal Mood, No Sensory Deficits Cerebellar Function: Normal Reflexes: Normal Skin: Dry, Normal Color, Warm Lymphatic: No Adenopathy Was a procedure done? Was a procedure done?: No Differential Dx Considerations may include: UTI, electrolyte imbalance, dehydration, viral syndrome, URI, covid19, bronchitis, PNA, pleural effusions, arthritis, cellulitis, dermatitis X-Ray, Labs, Meds, VS Vital Signs Date Time Temp Pulse Resp B/P (MAP) Pulse Ox O2 Delivery O2 Flow Rate FiO2 11/23/24 18:51 111 11/23/24 16:09 98.3 105 18 155/73 (100) 98 Lab Test 11/23/24 20:01 11/23/24 18:42 11/23/24 17:17 Range/Units White Blood Count 16.1 H 4.4-10.8 10^3/uL Red Blood Count 5.68 H 4.0-5.20 10^6/uL Hemoglobin 11.1 L 12.2-16.2 g/dL Hematocrit 39.2 36.0-46.0 % Mean Corpuscular Volume 69.0 L 80.0-100.0 fL Mean Corpuscular Hemoglobin 19.5 L 28.0-32.0 pg Mean Corpuscular Hemoglobin Concent 28.3 L 32.0-36.0 g/dL Red Cell Distribution Width 20.8 H 11.8-14.3 % Platelet Count 309 140-450 10^3/uL Mean Platelet Volume 7.6 6.9-10.8 fL Neutrophils (%) (Auto) 85.2 H 37.0-80.0 % Lymphocytes (%) (Auto) 7.2 L 10.0-50.0 % Monocytes (%) (Auto) 6.7 0.0-12.0 % Eosinophils (%) (Auto) 0.5 0.0-7.0 % Basophils (%) (Auto) 0.4 0.0-2.0 % Neutrophils # (Auto) 13.7 H 1.6-8.6 10 ^3/uL Lymphocytes # (Auto) 1.2 0.4-5.4 10 ^3/uL Monocytes # (Auto) 1.1 0-1.3 10 ^3/uL Eosinophils # (Auto) 0.1 0-0.8 10 ^3/uL Basophils # (Auto) 0.1 0-0.2 10 ^3/uL Nucleated Red Blood Cells 0.0 % Platelet Estimate Adequate Hypochromasia (manual) Marked Anisocytosis (manual) Slight Microcytosis Marked Lactic Acid Level 2.0 0.4-2.0 mmol/L Sodium Level 139 136-145 mmol/L Potassium Level 3.8 3.5-5.1 mmol/L Chloride Level 105 98-107 mmol/L Carbon Dioxide Level 25 20-31 mmol/L Anion Gap 9 5-15 Blood Urea Nitrogen 9 9-23 mg/dL Creatinine 0.53 L 0.550-1.02 mg/dL Glomerular Filtration Rate Calc 98 >90 mL/min BUN/Creatinine Ratio 17.0 10.0-20.0 Serum Glucose 84 74-106 mg/dL Calcium Level 9.4 8.7-10.4 mg/dL Total Bilirubin 0.8 0.2-1.0 mg/dL Aspartate Amino Transferase (AST) 54 H 13-40 U/L Alanine Aminotransferase (ALT) 12 7-40 U/L Alkaline Phosphatase 44 L 46-116 U/L Total Protein 7.0 5.7-8.2 g/dL Albumin 3.6 3.2-4.8 g/dL Current Medications Medications (Trade) Dose Ordered Sig/Amador Route Start Time Stop Time Status Last Admin Sodium Chloride 500 ml @ 500 mls/hr Q1H ONCE IV 11/23/24 16:30 11/23/24 17:29 DC 11/23/24 18:54 IV Hep-Lock was started The patient was given normal saline at a 500 cc bolus The chemistry panel is within normal limits. The CBC shows an elevated white blood cell count of 16.1 The rest of the CBC is within normal limits. The chest x-ray shows: IMPRESSION: Mild cardiomegaly with mild pulmonary vascular congestion. Possible trace left- sided pleural effusion/atelectasis. Large hiatal hernia. The patient was given Lasix 40 mg IV push The patient was being admitted to the hospitalist Images Reviewed?: Images reviewed and evaluated by me Time of 1ST Reevaluation: 16:50 Reevaluation 1ST: Unchanged Patient Education/Counseling: Diagnosis, Treatment, Prognosis Family Education/Counseling: No Family Present Departure 1 Departure Time of Disposition: 20:36 Impression: Primary Impression: Generalized weakness Additional Impression: Acute on chronic diastolic heart failure Disposition: ADMITTED INPATIENT Condition: Fair Critical Care Note Critical Care Time?: Yes (45 min-critical care time only) Stability Stability form required: Yes Unstable for transfer: Telemetry monitoring (Telemetry monitoring required), ED Physician Assesment (Clinical assesment) Heart Score Heart Score: Heart Score Response (Comments) Value History Moderate Suspicious 1 EKG Normal 0 Age >65 2 Risk Factors >3 or Hx ASHD 2 Troponin Normal limit 0 Total 5 I personally scribed for DERIAN BLUM MD ([email or web address]) on 11/23/24 at 16:36. Electronically submitted by Navid Anderson [email or web address]). DERIAN BLUM MD Nov 23, 2024 16:36
[2024-11-23 18:11] LABS: Alanine Aminotransferase 12 U/L (7-40); Albumin 3.6 g/dL (3.2-4.8); Anion Gap 9 (5-15); Bilirubin, Total 0.8 mg/dL (0.2-1.0); Calcium 9.4 mg/dL (8.7-10.4); Carbon Dioxide 25 mmol/L (20-31); Chloride 105 mmol/L (98-107); Glucose 84 mg/dL (74-106); Potassium 3.8 mmol/L (3.5-5.1); Sodium 139 mmol/L (136-145)
[2024-11-23 18:50] LABS: Alkaline Phosphatase 44 U/L (46-116); Aspartate Aminotransferase 54 U/L (13-40); Blood Urea Nitrogen 9 mg/dL (9-23)
[2024-11-23] MEDS: SODIUM CHLORIDE 0.9% 500 ML IV ONE (18:54)
--- NOTE | 2024-11-23 19:53 | DVH ---
CHEST RADIOGRAPH Indication: weakness Technique: Single frontal view of the chest was obtained Comparison: XY CHEST PORTABLE on DOS: 09/26/24, XY CHEST PORTABLE on DOS: 07/08/24, CHEST PORTABLE on DOS: 10/16/20 FINDINGS: Lines and Tubes: None Lungs: No focal consolidation. Mild interstitial prominence. Large hiatal hernia. Indistinctness of the left hemidiaphragm. No pneumothorax. Cardiomediastinal contours: Mild cardiomegaly. Bones: No acute osseous abnormality. IMPRESSION: Mild cardiomegaly with mild pulmonary vascular congestion. Possible trace left-sided pleural effusion /atelectasis. Large hiatal hernia.
[2024-11-23 20:23] LABS: Basophils # (auto) 0.1 10 ^3/uL (0-0.2); Basophils % (auto) 0.4 % (0.0-2.0); Eosinophils # (auto) 0.1 10 ^3/uL (0-0.8); Eosinophils % (auto) 0.5 % (0.0-7.0); Hematocrit 39.2 % (36.0-46.0); Hemoglobin 11.1 g/dL (12.2-16.2); Lymphocytes # (auto) 1.2 10 ^3/uL (0.4-5.4); Lymphocytes % (auto) 7.2 % (10.0-50.0); Mean Corpuscular Hemoglobin 19.5 pg (28.0-32.0); Mean Corpuscular Hgb Conc. 28.3 g/dL (32.0-36.0); Monocytes # (auto) 1.1 10 ^3/uL (0-1.3); Monocytes % (auto) 6.7 % (0.0-12.0); Neutrophils # (auto) 13.7 10 ^3/uL (1.6-8.6); Neutrophils % (auto) 85.2 % (37.0-80.0); Platelet Count (auto) 309 10^3/uL (140-450); Red Blood Cells 5.68 10^6/uL (4.0-5.20); Red Cell Distribution Width 20.8 % (11.8-14.3); White Blood Cell 16.1 10^3/uL (4.4-10.8)
[2024-11-23 20:24] LABS: Platelet Estimate Adequate
[2024-11-23 20:25] LABS: Anisocytosis Slight; Hypochromia Marked
[2024-11-23] MEDS: FUROSEMIDE 40 MG/4 ML VIAL IV ONE (20:47)
[2024-11-23] MEDS ORDERED: ONDANSETRON HCL 4 MG/2 ML VIAL IV PRN (21:00)
[2024-11-23] MEDS ORDERED: hydrALAZINE HCL 20 MG/ML VL IV PRN (21:00)
[2024-11-23] MEDS ORDERED: ACETAMINOPHEN 325 MG TAB PO PRN (21:00)
[2024-11-23] MEDS ORDERED: DOCUSATE SOD 100 MG CAP PO PRN (21:00)
--- NOTE | 2024-11-23 21:58 | DVHHP2 ---
History of Present Illness Reason for Visit: Generalized weakness History of Present Illness The patient is a 73-year-old female with past medical history of GERD, arthritis, hypertension, UTIs, and hyperlipidemia who presented to [facility] ED with complaint of generalized weakness. Patient reports symptoms progressively get worse with bilateral knee pain, swelling, nonradiating pain, sharp in nature, rating 10/10 numeric scale, getting worse that prompted this visit. Patient was seen and evaluated in the ED, laboratory data shows elevated WBC 16.1, platelets 309, sodium 139, potassium 3.8, BUN 9, creatinine 0.53, GFR 98, glucose 84, AST 54, ALT 12, BNP 181.33, blood pressure 124/57, heart rate 106, temperature 99.2 F, O2 saturation 98% on oxygen. Chest x-ray revealing mild cardiomegaly with mild pulmonary vascular congestion; possible trace left- sided pleural effusion/atelectasis, large hiatal hernia. Patient was started on IV antibiotic regimen Rocephin, please see medication orders section in the computer. On my assessment, patient remains weak, no headache, no dizziness, no diaphoresis, currently on oxygen, no diarrhea, no nausea, no vomiting, no fever, no chills. Patient was admitted for further evaluation and medical management. Past Medical History Arthritis, GERD, High Lipids, HTN, UTI'S Past Surgical History Appendectomy, Cholecystectomy, Hernia Repair, Hysterectomy, Left-arm Sx Family History Reviewed, noncontributory to the management of this case. Past Social History The patient lives at home, denies smoking, alcohol or illicit drugs abuse. Review of Systems Constitutional: Yes: Weakness; No: Fever, Chills, Sweats, Malaise, Other Eyes: No: Pain, Vision change, Conjunctivae inflammation, Eyelid inflammation, Other, Redness ENT: No: Ear pain, Ear discharge, Nose pain, Nose discharge, Nose congestion, Mouth pain, Mouth swelling, Throat pain, Throat swelling, Other Respiratory: No: Cough, Dry, Shortness of breath, SOB with excertion, Wheezing, Hemoptysis, Pleuritic Pain, Sputum, Wheezing, Other Cardiovascular: No: Chest Pain, Palpitations, Orthopnea, Paroxysmal Noc. Dyspnea, Edema, Lt Headedness, Other Gastrointestinal: No: Nausea, Vomiting, Abdominal Pain, Diarrhea, Constipation, Melena, Hematochezia, Other Genitourinary: No Dysuria, No Frequency, No Incontinence, No Hematuria, No Retention, No Other Musculoskeletal: other (bilateral knee pain and swelling.); No: neck pain, shoulder pain, arm pain, back pain, hand pain, leg pain, foot pain Skin: No: Rash, Lesions, Jaundice, Bruising, Other Neurological: Weakness; No: Numbness, Incoordination, Change in speech, Confusion, Seizures, Other Allergies: Coded Allergies: NO KNOWN ALLERGIES (Unverified , 08/19/16) Medications Current Medications Medications Dose Ordered Sig/Amador Route Start Time Stop Time Status Last Admin Dose Admin Furosemide 40 mg DAILY IV 11/24/24 10:00 Atorvastatin Calcium 40 mg HS PO 11/23/24 22:00 Hydralazine HCl 10 mg Q6HP PRN IV 11/23/24 21:00 Carvedilol 3.125 mg Q12HR PO 11/23/24 22:00 Famotidine 20 mg DAILY IV 11/24/24 10:00 Sodium Chloride 10 ml Q8HR IV 11/23/24 22:00 Acetaminophen/ Hydrocodone Bitart 1 tab Q4HP PRN PO 11/23/24 21:00 Ondansetron HCl 4 mg Q4HP PRN IV 11/23/24 21:00 Docusate Sodium 100 mg BIDPRN PRN PO 11/23/24 21:00 Acetaminophen 650 mg Q6HP PRN PO 11/23/24 21:00 Ceftriaxone Sodium 50 ml @ 100 mls/hr DAILY@09 IV 11/24/24 09:00 Exam Vital Signs Vital Signs Date Time Temp Pulse Resp B/P (MAP) Pulse Ox O2 Delivery O2 Flow Rate FiO2 11/23/24 20:47 124/57 11/23/24 20:41 99.2 106 20 100 99.2 General Appearance: Alert, Oriented X3, Cooperative, No acute distress HEENT: Atraumatic, PERRLA, EOMI, Mucous membr. moist/pink Respiratory: Normal air movement, Other (Diminished breath sounds) Cardiovascular: Regular rate, Normal S1, Normal S2, No murmurs Abdominal: Normal bowel sounds, Soft, No tenderness, No hepatospenomegaly, No m asses Extremities: No clubbing, No cyanosis, No edema, Normal pulses, Other (Knees tenderness/swelling.) Skin: No rashes, No breakdown, No significant lesion Neuro: Normal speech, Normal tone, Sensation intact, Cranial nerves 3-12 NL, Reflexes 2+, Other (Generalized weakness) Psych/Mental Status: Mental status NL, Mood NL Labs/Xrays Labs Test 11/23/24 21:47 11/23/24 20:01 11/23/24 18:42 11/23/24 17:17 Range/Units White Blood Count 16.1 H 4.4-10.8 10^3/uL Red Blood Count 5.68 H 4.0-5.20 10^6/uL Hemoglobin 11.1 L 12.2-16.2 g/dL Hematocrit 39.2 36.0-46.0 % Mean Corpuscular Volume 69.0 L 80.0-100.0 fL Mean Corpuscular Hemoglobin 19.5 L 28.0-32.0 pg Mean Corpuscular Hemoglobin Concent 28.3 L 32.0-36.0 g/dL Red Cell Distribution Width 20.8 H 11.8-14.3 % Platelet Count 309 140-450 10^3/uL Mean Platelet Volume 7.6 6.9-10.8 fL Neutrophils (%) (Auto) 85.2 H 37.0-80.0 % Lymphocytes (%) (Auto) 7.2 L 10.0-50.0 % Monocytes (%) (Auto) 6.7 0.0-12.0 % Eosinophils (%) (Auto) 0.5 0.0-7.0 % Basophils (%) (Auto) 0.4 0.0-2.0 % Neutrophils # (Auto) 13.7 H 1.6-8.6 10 ^3/uL Lymphocytes # (Auto) 1.2 0.4-5.4 10 ^3/uL Monocytes # (Auto) 1.1 0-1.3 10 ^3/uL Eosinophils # (Auto) 0.1 0-0.8 10 ^3/uL Basophils # (Auto) 0.1 0-0.2 10 ^3/uL Nucleated Red Blood Cells 0.0 % Platelet Estimate Adequate Hypochromasia (manual) Marked Anisocytosis (manual) Slight Microcytosis Marked Lactic Acid Level 2.0 0.4-2.0 mmol/L Sodium Level 139 136-145 mmol/L Potassium Level 3.8 3.5-5.1 mmol/L Chloride Level 105 98-107 mmol/L Carbon Dioxide Level 25 20-31 mmol/L Anion Gap 9 5-15 Blood Urea Nitrogen 9 9-23 mg/dL Creatinine 0.53 L 0.550-1.02 mg/dL Glomerular Filtration Rate Calc 98 >90 mL/min BUN/Creatinine Ratio 17.0 10.0-20.0 Serum Glucose 84 74-106 mg/dL Calcium Level 9.4 8.7-10.4 mg/dL Total Bilirubin 0.8 0.2-1.0 mg/dL Aspartate Amino Transferase (AST) 54 H 13-40 U/L Alanine Aminotransferase (ALT) 12 7-40 U/L Alkaline Phosphatase 44 L 46-116 U/L Total Protein 7.0 5.7-8.2 g/dL Albumin 3.6 3.2-4.8 g/dL PATIENT: ESTEBAN GONZALEZ ACCT: [id number] UNIT: [id number] : 1950 LOC: ER ROOM / BED: / AGE / SEX: 73 / F ADM STATUS: REG ER SERVICE ORDERING PHYSICIAN: DERIAN BLUM MD PROCEDURE(s): CXRP - CHEST PORTABLE REASON: weakness ORDER NUMBER(s): [id number], ACCESSION NUMBER(s): [id number] CHEST RADIOGRAPH Indication: weakness Technique: Single frontal view of the chest was obtained Comparison: XY CHEST PORTABLE on DOS: 09/26/24, XY CHEST PORTABLE on DOS: 07/08/24, CHEST PORTABLE on DOS: 10/16/20 FINDINGS: Lines and Tubes: None Lungs: No focal consolidation. Mild interstitial prominence. Large hiatal hernia. Indistinctness of the left hemidiaphragm. No pneumothorax. Cardiomediastinal contours: Mild cardiomegaly. Bones: No acute osseous abnormality. IMPRESSION: Mild cardiomegaly with mild pulmonary vascular congestion. Possible trace left- sided pleural effusion/atelectasis. Large hiatal hernia. Assessment/Plan Assessment/Plan Generalized weakness Leukocytosis, unspecified Bilateral knee pain and swelling Plan 1. Admit to telemetry unit 2. Breathing treatment 3. Pain control management 4. IV antibiotic management 5. Management of fluids and electrolytes 6. Consultation for hospitalist 7. Diagnostic test chest x-ray 8. DVT prophylaxis-on aspirin 9. Repeat labs CBC, CMP in a.m. 10. Home medication reviewed and reconciled 11. Continue with current medical management 12. Treatment plan discussed with patient and RN. Patient verbalized understanding. Plan discussed with: Patient, Other (RN) My Orders Orders - REYNALDO ANDERSON DNP Procedure Category Date Status Time B-Type Natriuretic LAB 11/23/24 In Process Peptide 21:00 Furosemide Injection PHA 11/24/24 In Process (Lasix Injection) 10:00 Atorvastatin (Lipitor) PHA 11/23/24 In Process 22:00 Hydralazine Injection PHA 11/23/24 In Process (Apresoline Inject 21:00 Carvedilol Tablet PHA 11/23/24 In Process (Coreg Tablet) 22:00 Code Status CODE 11/23/24 Transmitted 21:00 Sodium Chloride Lock PHA 11/23/24 In Process (Saline Lock Ns) 22:00 Oxygen Per Hour RT 11/23/24 Transmitted 21:00 Hydrocodone-Acet PHA 11/23/24 In Process 5/325mg Tab ([facility] 21:00 Ondansetron Hcl PHA 11/23/24 In Process (Zofran) 21:00 Docusate Sodium PHA 11/23/24 In Process Capsule (Colace 21:00 Complete Blood Count LAB 11/24/24 Verified 04:00 Comprehensive LAB 11/24/24 Verified Metabolic Panel 04:00 Cardiac DIET 11/24/24 Transmitted Diet-2gna,Lofat,Lochol Breakfast Condition: Serious SHELBY 11/23/24 In Process 21:00 Acetaminophen Tablet PHA 11/23/24 In Process (Tylenol Tablet) 21:00 Bedrest With Bathroom SHELBY 11/23/24 In Process Privileg 21:00 Sequential SHELBY 11/23/24 In Process Compression Device *Consult CONS 11/23/24 Transmitted / 21:00 Famotidine Injection PHA 11/24/24 In Process (Pepcid Injection) 10:00 Allergies SHELBY 11/23/24 Verified 21:00 Ceftriaxone 1gm/50ml PHA 11/24/24 In Process D5w (Rocephin) 09:00 Ceftriaxone 1gm/50ml PHA 11/23/24 In Process D5w (Rocephin) 21:30 Admit ADMIT 11/23/24 Verified 21:56 Nitroglycerin PHA 11/23/24 Verified Sublingual (Ntrostat 22:00 Morphine Sulfate PHA 11/23/24 Verified Injection 22:00 Notify Of Changes [facility] 11/23/24 Verified From Base 21:[address] [facility] 11/23/24 Verified 24 Hours 21:[address] [facility] 11/23/24 Verified Protocol 21:[address] [facility] 11/23/24 Verified Every Shift 21:56 Oxygen By Nasal RT 11/23/24 Verified Cannula 21:56 Problem List: (1) Generalized weakness (2) Bilateral knee pain (3) Leukocytosis, unspecified Date of Service: Nov 23, 2024 Billing Provider: REYNALDO ANDERSON DNP Common Visit Codes: [id number] INP/OBS CARE (HIGH) REYNALDO ANDERSON DNP Nov 23, 2024 21:57
[2024-11-23] MEDS ORDERED: NITROGLYCERIN 0.4 MG SL TAB SL PRN (22:00)
[2024-11-23] MEDS: SODIUM CHLOR 0.9% PF (SALINE LOCK) 10ML VIAL/SYR IV SCH (22:00)
[2024-11-23] MEDS ORDERED: MORPHINE SULFATE INJ 2 MG/ml SYRG IV PRN (22:00)
[2024-11-23] MEDS: cefTRIAXone 1GM/50ML D5W 50 ML IV ONE (22:30)
--- NOTE | 2024-11-23 22:38 | DVHINCON2 ---
Date of service: Nov 23, 2024 Referring Physician Jean Apodaca NP Reason for Consultation Left pleural effusion and atelectasis History of Present Illness A 73-year-old woman with past medical history of hypertension, hyperlipidemia, GERD, arthritis, and UTIs who presents to ED today with complaint of generalized weakness. Patient reports symptoms progressively got worse with bilateral knee pain and swelling, sharp 10/10 nonradiating pain, that prompted this visit. Workup in ED showed WBC 16.1, platelets 309, sodium 139, potassium 3.8, BUN 9, creatinine 0.53, GFR 98, glucose 84, AST 54, ALT 12, BNP 181.33. Chest x-ray revealed mild cardiomegaly with mild pulmonary vascular congestion; possible trace left-sided pleural effusion/atelectasis, large hiatal hernia. Patient was admitted for further evaluation and medical management. Pulmonary consultation is requested for evaluation and management due to the above findings. Review of Systems: 14-point review of systems negative unless otherwise noted above. Past Medical History: Hypertension, hyperlipidemia, GERD, arthritis, and UTIs Past Surgical History: Appendectomy, Cholecystectomy, Hernia Repair, Hysterectomy, Left-arm surgery Medications: Reviewed. Allergies: No known drug allergies. Family History: Diabetes mellitus and heart failure. Social History: Nonsmoker. No alcohol or illicit drug use Family History: Diabetes mellitus G8 MOTHER G8 FATHER FH: heart failure G8 MOTHER G8 FATHER Allergies: Coded Allergies: NO KNOWN ALLERGIES (Unverified , 08/19/16) Home Meds Active Scripts Tramadol Hcl (Tramadol Hcl) 50 Mg Tab, 50 MG PO Q8HPRN PRN for 5 Days, #15 TAB Prov:JODEE BAJWA HARDWARE DEVELOPER 10/03/24 Diltiazem HCl (Diltiazem Hci ER) 120 Mg Tab, 120 MG PO DAILY for 30 Days, #30 TAB 1 Refill Prov:JODEE BAJWA HARDWARE DEVELOPER 10/02/24 Lisinopril (Lisinopril) 20 Mg Tab, 1 TAB PO DAILY for 30 Days, #30 TAB 5 Refills Prov:SANTOS BAXTER RESIDENT 07/11/24 Pantoprazole Sodium Sesquihydr (Pantoprazole Sodium) 40 Mg Tab, 40 MG PO DAILY for 30 Days, #30 TAB Prov:SANTOS BAXTER RESIDENT 07/11/24 Ferrous Sulfate (Iron) 325 Mg Tab, 325 MG PO DAILY for 30 Days, #30 TAB Prov:SANTOS BAXTER RESIDENT 07/11/24 Atorvastatin Calcium (Lipitor) 40 Mg Tab, 1 TAB PO DAILY, #30 TAB 5 Refills Prov:DERIAN BLUM MD 06/12/24 Current Medications Current Medications Medications (Trade) Dose Ordered Sig/Amador Route PRN Reason Start Time Stop Time Status Last Admin Furosemide (Lasix Injection) 40 mg DAILY IV 11/24/24 10:00 Atorvastatin Calcium (Lipitor) 40 mg HS PO 11/23/24 22:00 Hydralazine HCl (Apresoline Injection) 10 mg Q6HP PRN IV SBP>150 11/23/24 21:00 Carvedilol (Coreg Tablet) 3.125 mg Q12HR PO 11/23/24 22:00 Famotidine (Pepcid Injection) 20 mg DAILY IV 11/24/24 10:00 Sodium Chloride (Saline Lock Ns) 10 ml Q8HR IV 11/23/24 22:00 Acetaminophen/ Hydrocodone Bitart ([place] 5/325MG Tab) 1 tab Q4HP PRN PO MODERATE PAIN (4-6 PAIN SCALE) 11/23/24 21:00 Ondansetron HCl (Zofran) 4 mg Q4HP PRN IV NAUSEA / VOMITING 11/23/24 21:00 Docusate Sodium (Colace Capsule) 100 mg BIDPRN PRN PO FOR CONSTIPATION 11/23/24 21:00 Acetaminophen (Tylenol Tablet) 650 mg Q6HP PRN PO PAIN SCALE 1-3 OR TEMP>100.4 11/23/24 21:00 Ceftriaxone Sodium 50 ml @ 100 mls/hr DAILY@09 IV 11/24/24 09:00 Nitroglycerin (Ntrostat Sublingual) 0.4 mg Q5MINP PRN SL FOR CHEST PAIN 11/23/24 22:00 Morphine Sulfate 2 mg Q30M PRN IV FOR CHEST PAIN 11/23/24 22:00 Vital Signs Vital Signs Date Time Temp Pulse Resp B/P (MAP) Pulse Ox O2 Delivery O2 Flow Rate FiO2 11/23/24 20:47 124/57 11/23/24 20:41 99.2 106 20 100 99.2 Physical Exam Gen.: Patient lying in bed in no apparent distress. Breathing on room air. Head: Normocephalic, atraumatic. Eyes: EOMI/PERRLA. Ears: Normal hearing. Normal anatomy. Neck/trachea: Trachea midline, supple. Nose: Normal external anatomy. Mouth: Moist mucous membranes. Chest: Decreased air entry bilaterally. No wheezing or rhonchi. Cardiovascular: Positive S1, positive S2. Regular rate and rhythm. Abdomen: Positive bowel sounds in all 4 quadrants. Soft, non-tender, non- distended. : Deferred. Rectal: Deferred. Skin: Warm, dry. Intact. Extremities: 2+ radial pulses bilaterally. No lower extremity edema. Neuro: Awake, alert, oriented x3. No gross motor or sensory deficits. Cranial nerves II through XII intact. Gait not assessed. Labs/Diagnostic Data Labs Test 11/23/24 21:47 11/23/24 20:01 11/23/24 18:42 11/23/24 17:17 Range/Units B-Type Natriuretic Peptide 181.33 0-100 pg/mL White Blood Count 16.1 H 4.4-10.8 10^3/uL Red Blood Count 5.68 H 4.0-5.20 10^6/uL Hemoglobin 11.1 L 12.2-16.2 g/dL Hematocrit 39.2 36.0-46.0 % Mean Corpuscular Volume 69.0 L 80.0-100.0 fL Mean Corpuscular Hemoglobin 19.5 L 28.0-32.0 pg Mean Corpuscular Hemoglobin Concent 28.3 L 32.0-36.0 g/dL Red Cell Distribution Width 20.8 H 11.8-14.3 % Platelet Count 309 140-450 10^3/uL Mean Platelet Volume 7.6 6.9-10.8 fL Neutrophils (%) (Auto) 85.2 H 37.0-80.0 % Lymphocytes (%) (Auto) 7.2 L 10.0-50.0 % Monocytes (%) (Auto) 6.7 0.0-12.0 % Eosinophils (%) (Auto) 0.5 0.0-7.0 % Basophils (%) (Auto) 0.4 0.0-2.0 % Neutrophils # (Auto) 13.7 H 1.6-8.6 10 ^3/uL Lymphocytes # (Auto) 1.2 0.4-5.4 10 ^3/uL Monocytes # (Auto) 1.1 0-1.3 10 ^3/uL Eosinophils # (Auto) 0.1 0-0.8 10 ^3/uL Basophils # (Auto) 0.1 0-0.2 10 ^3/uL Nucleated Red Blood Cells 0.0 % Platelet Estimate Adequate Hypochromasia (manual) Marked Anisocytosis (manual) Slight Microcytosis Marked Lactic Acid Level 2.0 0.4-2.0 mmol/L Sodium Level 139 136-145 mmol/L Potassium Level 3.8 3.5-5.1 mmol/L Chloride Level 105 98-107 mmol/L Carbon Dioxide Level 25 20-31 mmol/L Anion Gap 9 5-15 Blood Urea Nitrogen 9 9-23 mg/dL Creatinine 0.53 L 0.550-1.02 mg/dL Glomerular Filtration Rate Calc 98 >90 mL/min BUN/Creatinine Ratio 17.0 10.0-20.0 Serum Glucose 84 74-106 mg/dL Calcium Level 9.4 8.7-10.4 mg/dL Total Bilirubin 0.8 0.2-1.0 mg/dL Aspartate Amino Transferase (AST) 54 H 13-40 U/L Alanine Aminotransferase (ALT) 12 7-40 U/L Alkaline Phosphatase 44 L 46-116 U/L Total Protein 7.0 5.7-8.2 g/dL Albumin 3.6 3.2-4.8 g/dL Assessment Impression: Acute on chronic diastolic CHF Morbid obesity, BMI 47 Left pleural effusion Atelectasis Leukocytosis Anemia Generalized weakness. Plan: Supplemental oxygen PRN Titrate to keep O2 sats above 92%. CXR demonstrates mild pulmonary vascular congestion, small left pleural effusion and atelectasis. Continue antibiotics Incentive spirometry Diurese to euvolemia w/ Lasix Monitor renal function. Monitor electrolytes. Supplement as necessary. Monitor ins and outs. Leukocytosis - Monitor WBC Pain control Avoid oversedation Diet and lifestyle modifications for weight reduction Morbid obesity - complicates all care GI prophylaxis - Pepcid DVT prophylaxis. Prognosis: Poor given patient's multiple co-morbidities. Rest of plan per hospitalist and other consultants. Thank you, Jean Apodaca NP, for allowing me to participate in this patient's care. Further recommendations will depend on the patient's clinical course. Please do not hesitate to contact me if you have any questions or concerns. This medical document was created using an electronic medical record system with [email or web address] computerized dictation system. Although these documentations are being carefully reviewed, there may still be some phonetic and typographical changes. The errors are purely typographical, due to imperfection on the software program, and do not reflect any compromise in the patient's medical care. Plan discussed with: Patient, Other (RN/HARDWARE DEVELOPER Paulie/) FEDERICO STOLL MD Nov 23, 2024 22:38
[2024-11-23] MEDS: CARVEDILOL 3.125 MG TAB PO SCH (22:45)
[2024-11-23] MEDS: ATORVASTATIN 20 MG TAB PO SCH (22:45)
[2024-11-23 23:52] VITALS: BP 124/80; PULSE 114; RESP 16; TEMP 98.3; O2SAT 98
[2024-11-23 23:53] VITALS: PULSE 106; RESP 20; O2SAT 100
[2024-11-24] VITALS (9 sets, daily range): BP systolic 144–153; BP diastolic 61–89; PULSE 93–120; RESP 16–20; TEMP 98–98.6; O2SAT 97–100
[2024-11-24] MEDS: HYDROcodone-ACET 5/325MG TAB PO PRN (01:04)
[2024-11-24] MEDS: cefTRIAXone 1GM/50ML D5W 50 ML IV SCH (08:46)
[2024-11-24] MEDS: FAMOTIDINE (10MG/ML) 2ML VL IV SCH (08:47)
[2024-11-24] MEDS: ASPirin 81 mg TAB PO SCH (08:47)
[2024-11-24] MEDS: FUROSEMIDE 40 MG/4 ML VIAL IV SCH (08:47)
--- NOTE | 2024-11-24 12:15 | DVHPN2 ---
Reviewed: Care Plan, H&P, Labs, Medications, Previous Orders, Radiology Changes from previous H/P or p: No Changes Eyes: No Pain, No Vision change, No Conjunctivae inflammation, No Eyelid in flammation, No Other, No Redness ENT: No Ear pain, No Ear discharge, No Nose pain, No Nose discharge, No Nose congestion, No Mouth pain, No Mouth swelling, No Throat pain, No Throat swelling, No Other Cardiovascular: No Chest Pain, No Palpitations, No Orthopnea, No Paroxysmal Noc. Dyspnea, No Edema, No Lt Headedness, No Other Respiratory: No Cough, No Dry, No Shortness of breath, No SOB with excertion, No Wheezing, No Hemoptysis, No Pleuritic Pain, No Sputum, No Other Gastrointestinal: No Nausea, No Vomiting, No Abdominal Pain, No Diarrhea, No Co nstipation, No Melena, No Hematochezia, No Other Genitourinary: No Dysuria, No Frequency, No Incontinence, No Hematuria, No Retention, No Other Musculoskeletal: other (bilateral knee pain and swelling.); No neck pain, No shoulder pain, No arm pain, No back pain, No hand pain, No leg pain, No foot pain Skin: No Rash, No Lesions, No Jaundice, No Bruising, No Other Objective Vitals Vital Signs Date Time Temp Pulse Resp B/P (MAP) Pulse Ox O2 Delivery O2 Flow Rate FiO2 11/24/24 09:00 98.1 111 20 147/61 (89) 97 98.1 11/23/24 23:53 Room Air* 0 21 Intake/Output Intake and Output 11/24/24 07:00 Intake Total 900 ml Balance 900 ml Intake Oral 900 ml # Voids 3 Medications Current Medications Medications Dose Ordered Sig/Amador Route Start Time Stop Time Status Last Admin Dose Admin Furosemide 40 mg DAILY IV 11/24/24 10:00 11/24/24 08:47 40 MG Atorvastatin Calcium 40 mg HS PO 11/23/24 22:00 11/23/24 22:45 40 MG Hydralazine HCl 10 mg Q6HP PRN IV 11/23/24 21:00 Carvedilol 3.125 mg Q12HR PO 11/23/24 22:00 11/24/24 08:48 3.125 MG Famotidine 20 mg DAILY IV 11/24/24 10:00 11/24/24 08:47 20 MG Sodium Chloride 10 ml Q8HR IV 11/23/24 22:00 11/24/24 06:24 10 ML Acetaminophen/ Hydrocodone Bitart 1 tab Q4HP PRN PO 11/23/24 21:00 11/24/24 08:59 1 TAB Ondansetron HCl 4 mg Q4HP PRN IV 11/23/24 21:00 Docusate Sodium 100 mg BIDPRN PRN PO 11/23/24 21:00 Acetaminophen 650 mg Q6HP PRN PO 11/23/24 21:00 Ceftriaxone Sodium 50 ml @ 100 mls/hr DAILY@09 IV 11/24/24 09:00 11/24/24 08:46 100 MLS/HR Nitroglycerin 0.4 mg Q5MINP PRN SL 11/23/24 22:00 Morphine Sulfate 2 mg Q30M PRN IV 11/23/24 22:00 Aspirin 81 mg DAILY PO 11/24/24 10:00 11/24/24 08:47 81 MG Laboratory Results Chemistry Test 11/23/24 17:17 11/24/24 11:45 Albumin 3.6 g/dL (3.2-4.8) Pending Calcium Level 9.4 mg/dL (8.7-10.4) Pending Total Protein 7.0 g/dL (5.7-8.2) Pending Cardiac Markers Test 11/23/24 21:47 B-Type Natriuretic Peptide 181.33 pg/mL (0-100) LFT Test 11/23/24 17:17 11/24/24 11:45 Alanine Aminotransferase (ALT) 12 U/L (7-40) Pending Alkaline Phosphatase 44 U/L (46-116) L Pending Aspartate Amino Transferase (AST) 54 U/L (13-40) H Pending Total Bilirubin 0.8 mg/dL (0.2-1.0) Pending Labs and/or images reviewed: Labs reviewed by me, Image(s) reviewed by me Assessment/Plan Assessment/Plan Sepsis with elevated white count unknown etiology: Blood cultures urine cultures urinalysis Rocephin vancomycin Chronic rheumatoid arthritis bilateral knees: CT knees ortho consult for Dr. Shaikh Hypertension GERD Hypercholesterolemia History of urinary tract infection Large hiatal hernia History of recurrent falls at home: CT head ordered Patient lives in [place] with her younger sister Ashlee [phone] who is at the bedside Chronic malnutrition Possible dementia Time spent 65 minutes Condition guarded Advanced care planning time 20 mts Plan discussed with: Patient, Other (sister) Date of Service: Nov 24, 2024 Billing Provider: KRISTIN PRAKASH MD Common Visit Codes: [id number] CARE 30-74 MIN KRISTIN PRAKASH MD Nov 24, 2024 12:15
[2024-11-24] MEDS ORDERED: VANCOMYCIN PER PHARMACY 0 MG IV SCH (12:30)
[2024-11-24 12:42] LABS: Alanine Aminotransferase 14 U/L (7-40); Albumin 3.4 g/dL (3.2-4.8); Anion Gap 8 (5-15); BUN/Creatinine Ratio 12.1 (10.0-20.0); Bilirubin, Total 0.7 mg/dL (0.2-1.0); Calcium 9.2 mg/dL (8.7-10.4); Carbon Dioxide 30 mmol/L (20-31); Chloride 103 mmol/L (98-107); Glucose 85 mg/dL (74-106); Sodium 141 mmol/L (136-145); Total Protein 6.5 g/dL (5.7-8.2)
[2024-11-24 12:47] LABS: Alkaline Phosphatase 40 U/L (46-116); Aspartate Aminotransferase 62 U/L (13-40); Blood Urea Nitrogen 8 mg/dL (9-23); Potassium 3.4 mmol/L (3.5-5.1)
--- NOTE | 2024-11-24 13:49 | DVH ---
EXAM: CT HEAD WITHOUT CONTRAST HISTORY: Fall at home COMPARISON: None TECHNIQUE: Axial images of the head were obtained and reformatted in coronal and sagittal planes. All CT scans at this medical facility are performed using dose modulation techniques as appropriate t o a performed exam including the following: Automated exposure control was utilized; adjustment of th e MA and/or KV according to patient size; and use of iterative reconstruction technique. CT Dose: CTDI volume is 61.25 mGy. Dose-length product is 1084.33 mGy*cm FINDINGS: There is no evidence of acute intracranial hemorrhage, mass, mass effect midline shift. There is no h ydrocephalus or extra-axial fluid collection. Patchy hypodense changes in the supratentorial white ma tter compatible with chronic small-vessel ischemic changes. Boyle-white matter differentiation is erica ntained. The visualized paranasal sinuses and mastoid air cells are clear. The calvarium is intact. IMPRESSION: 1. No acute intracranial process. HS:Y
--- NOTE | 2024-11-24 14:18 | DVH ---
CT CT R KNEE WO CONTRAST INDICATION: Rule out septic arthritis EXAM DATE: 11/24/2024 01:23 PM COMPARISON: None RADIATION DOSE: CTDIvol: 14.84 mGy, DLP: 485.25 mGy*cm PROCEDURE: Helical CT images were obtained of the right knee without intravenous contrast. Sagittal and coronal reconstructions are provided. ADDITIONAL IMAGES: None FINDINGS: BONES: No fracture. Normal anatomic alignment. JOINT SPACES: Severely narrowed with osteophyte formation and subchondral cystic formation. Small nati nt effusion. SOFT TISSUES: Mildly edematous. VESSELS: Severe atherosclerotic calcifications. IMPRESSION: Severe degenerative joint disease with severe arthritis changes on the medial compartment. Small joint effusion could be due to arthritis.
--- NOTE | 2024-11-24 14:26 | DVH ---
INDICATION: Rule out septic arthritis COMPARISON: None TECHNIQUE: CT of the right was performed without contrast. Volume transverse images were obtained a nd reconstructed in multiple planes using bone and soft tissue algorithms. CONTRAST: None Radiation Dose Information: CT Dose: CTDI volume is 8.4 mGy. Dose-length product is 1259.57 mGy*cm FINDINGS: The alignment is normal. Marked narrowing of the patellofemoral joint Severe narrowing of the medial lateral of the knee. There is a nondisplaced fracture through the late ral tibial plateau. Subcutaneous edema in the left lower extremity. IMPRESSION: Severe narrowing consistent with arthritic changes of the medial compartment of the left knee patello femoral joint. Nondisplaced fracture through the lateral tibial plateau
[2024-11-24 14:30] LABS: Basophils # (auto) 0.1 10 ^3/uL (0-0.2); Hemoglobin 9.6 g/dL (12.2-16.2); Monocytes # (auto) 1.2 10 ^3/uL (0-1.3); Red Cell Distribution Width 20.3 % (11.8-14.3)
[2024-11-24] MEDS: VANCOMYCIN 1GM/250ML KIT 250 ML IV ONE (14:30)
[2024-11-24] MEDS: POTASSIUM CHL 20 Meq TABLET PO ONE (14:30)
[2024-11-24 14:32] LABS: Eosinophils # (auto) 0.2 10 ^3/uL (0-0.8); Eosinophils % (auto) 1.2 % (0.0-7.0); Lymphocytes # (auto) 1.7 10 ^3/uL (0.4-5.4); Lymphocytes % (auto) 11.7 % (10.0-50.0); Mean Corpuscular Hemoglobin 19.2 pg (28.0-32.0); Mean Corpuscular Hgb Conc. 29.1 g/dL (32.0-36.0); Mean Corpuscular Volume 65.9 fL (80.0-100.0); Monocytes % (auto) 8.3 % (0.0-12.0); Neutrophils # (auto) 11.2 10 ^3/uL (1.6-8.6); Neutrophils % (auto) 77.8 % (37.0-80.0); Platelet Count (auto) 320 10^3/uL (140-450); Red Blood Cells 5.01 10^6/uL (4.0-5.20); White Blood Cell 14.3 10^3/uL (4.4-10.8)
[2024-11-24 15:02] LABS: Urine Bacteria FEW /hpf (None Seen); Urine Blood TRACE /uL (Negative); Urine Clarity Turbid (Clear); Urine Color Light-Yellow (Yellow); Urine Protein, UAD Negative (Negative); Urine Specific Gravity 1.006 (1.001-1.035); Urine Urobilinogen Normal (Negative); Urine WBC 242 /hpf (0 - 5)
[2024-11-24 15:15] LABS: Erythrocyte Sedimentation Rate 11 mm/hr (0-20)
--- NOTE | 2024-11-24 20:40 | DVHPN2 ---
Progress Note - Dictate Date Seen: Nov 24, 2024 Medical Necessity Reason Pt with a Central, PICC or Fol: No Subjective Patient seen and examined at bedside. Breathing comfortably on room air. Overnight events reviewed. vital signs Vital Sign Date Time Temp Pulse Resp B/P (MAP) Pulse Ox O2 Delivery O2 Flow Rate FiO2 11/24/24 17:03 98.0 97 20 146/87 (106) 97 98.0 11/24/24 08:00 Room Air* 0 21 Total Intake and Output 11/23/24 11/23/24 11/24/24 15:00 23:00 07:00 Intake Total 900 ml Balance 900 ml medications Current Medications Medications Dose Ordered Sig/Amador Route Start Time Stop Time Status Last Admin Dose Admin Furosemide 40 mg DAILY IV 11/24/24 10:00 11/24/24 08:47 40 MG Atorvastatin Calcium 40 mg HS PO 11/23/24 22:00 11/23/24 22:45 40 MG Hydralazine HCl 10 mg Q6HP PRN IV 11/23/24 21:00 Carvedilol 3.125 mg Q12HR PO 11/23/24 22:00 11/24/24 08:48 3.125 MG Famotidine 20 mg DAILY IV 11/24/24 10:00 11/24/24 08:47 20 MG Sodium Chloride 10 ml Q8HR IV 11/23/24 22:00 11/24/24 13:30 10 ML Acetaminophen/ Hydrocodone Bitart 1 tab Q4HP PRN PO 11/23/24 21:00 11/24/24 16:21 1 TAB Ondansetron HCl 4 mg Q4HP PRN IV 11/23/24 21:00 Docusate Sodium 100 mg BIDPRN PRN PO 11/23/24 21:00 Acetaminophen 650 mg Q6HP PRN PO 11/23/24 21:00 Ceftriaxone Sodium 50 ml @ 100 mls/hr DAILY@09 IV 11/24/24 09:00 11/24/24 08:46 100 MLS/HR Nitroglycerin 0.4 mg Q5MINP PRN SL 11/23/24 22:00 Morphine Sulfate 2 mg Q30M PRN IV 11/23/24 22:00 Aspirin 81 mg DAILY PO 11/24/24 10:00 11/24/24 08:47 81 MG Vancomycin HCl 0 ml @ 0 mls/hr UD IV 11/24/24 12:30 Vancomycin HCl 250 ml @ 200 mls/hr Q12H IV 11/25/24 00:00 objective Gen.: Patient lying in bed in no apparent distress. Breathing on room air. Head: Normocephalic, atraumatic. Eyes: EOMI/PERRLA. Ears: Normal hearing. Normal anatomy. Neck/trachea: Trachea midline, supple. Nose: Normal external anatomy. Mouth: Moist mucous membranes. Chest: Decreased air entry bilaterally. No wheezing or rhonchi. Cardiovascular: Positive S1, positive S2. Regular rate and rhythm. Abdomen: Positive bowel sounds in all 4 quadrants. Soft, non-tender, non- distended. : Deferred. Rectal: Deferred. Skin: Warm, dry. Intact. Extremities: 2+ radial pulses bilaterally. No lower extremity edema. Neuro: Awake, alert, oriented x3. No gross motor or sensory deficits. Cranial nerves II through XII intact. Gait not assessed. laboratory and microbiology Laboratory Tests 11/24/24 14:00 11/24/24 11:45 Test 11/24/24 11:45 Range/Units Serum Glucose 85 74-106 mg/dL Assessment/Plan Impression: Acute on chronic diastolic CHF Morbid obesity, BMI 47 Left pleural effusion Atelectasis Leukocytosis Anemia Generalized weakness. Events: Breathing on room air - O2 saturation 97% No respiratory distress. Continue antibiotics Incentive spirometry Diurese to euvolemia w/ Lasix Potassium supplementation Monitor renal function. Monitor electrolytes. Supplement as necessary. Rudolph for strict ins and outs Pain control Avoid oversedation Pepcid for GI prophylaxis Labs and imaging reviewed. Rest of plan as noted below. Plan: Supplemental oxygen PRN Titrate to keep O2 sats above 92%. CXR on 11/23 demonstrates mild pulmonary vascular congestion, small left pleural effusion and atelectasis. Continue antibiotics Incentive spirometry Diurese to euvolemia w/ Lasix Monitor renal function. Monitor electrolytes. Supplement as necessary. Monitor ins and outs. Leukocytosis - Monitor WBC Pain control Avoid oversedation Diet and lifestyle modifications for weight reduction Morbid obesity - complicates all care GI prophylaxis - Pepcid DVT prophylaxis. Prognosis: Poor given patient's multiple co-morbidities. Rest of plan per hospitalist and other consultants. Thank you, Jean Apodaca NP, for allowing me to participate in this patient's care. Further recommendations will depend on the patient's clinical course. Please do not hesitate to contact me if you have any questions or concerns. This medical document was created using an electronic medical record system with [employer] dictation system. Although these documentations are being carefully reviewed, there may still be some phonetic and typographical changes. The errors are purely typographical, due to imperfection on the software program, and do not reflect any compromise in the patient's medical care. Dietary Evaluation Review Comments: PO intake 2 75% today, Refusing to eat is resolved. encourage physical activities when medically permissible. Avoid over-eating for weight control. Expected Outcomes/Goals: gradual wt loss. Plan discussed with: Patient, Other (MACEY Kinsey) FEDERICO STOLL MD Nov 24, 2024 20:40
[2024-11-25] VITALS (8 sets, daily range): BP systolic 130–154; BP diastolic 65–87; PULSE 87–103; RESP 17–20; TEMP 98.1–98.3; O2SAT 96–99
[2024-11-25] MEDS: VANCOMYCIN 1.25GM/250ML 250 ML IV SCH
[2024-11-25 07:26] LABS: Chloride 103 mmol/L (98-107); Sodium 140 mmol/L (136-145)
[2024-11-25 07:27] LABS: Anion Gap 8 (5-15); Carbon Dioxide 29 mmol/L (20-31)
[2024-11-25 07:32] LABS: BUN/Creatinine Ratio 20.3 (10.0-20.0); Blood Urea Nitrogen 12 mg/dL (9-23)
[2024-11-25 07:57] LABS: Glucose 90 mg/dL (74-106)
--- NOTE | 2024-11-25 08:18 | DVHPN2 ---
Reviewed: Care Plan, H&P, Labs, Medications, Previous Orders, Radiology Changes from previous H/P or p: No Changes Eyes: No Pain, No Vision change, No Conjunctivae inflammation, No Eyelid inflammation, No Other, No Redness ENT: No Ear pain, No Ear discharge, No Nose pain, No Nose discharge, No Nose congestion, No Mouth pain, No Mouth swelling, No Throat pain, No Throat swelling, No Other Cardiovascular: No Chest Pain, No Palpitations, No Orthopnea, No Paroxysmal Noc. Dyspnea, No Edema, No Lt Headedness, No Other Respiratory: No Cough, No Dry, No Shortness of breath, No SOB with excertion, No Wheezing, No Hemoptysis, No Pleuritic Pain, No Sputum, No Other Gastrointestinal: No Nausea, No Vomiting, No Abdominal Pain, No Diarrhea, No Constipation, No Melena, No Hematochezia, No Other Genitourinary: No Dysuria, No Frequency, No Incontinence, No Hematuria, No Retention, No Other Musculoskeletal: other (bilateral knee pain and swelling.); No neck pain, No shoulder pain, No arm pain, No back pain, No hand pain, No leg pain, No foot pain Skin: No Rash, No Lesions, No Jaundice, No Bruising, No Other Objective Vitals Vital Signs Date Time Temp Pulse Resp B/P (MAP) Pulse Ox O2 Delivery O2 Flow Rate FiO2 11/25/24 04:49 98.1 99 17 130/65 (86) 97 98.1 11/24/24 20:00 Room Air* 0 21 Intake/Output Intake and Output 11/25/24 07:00 Intake Total 1560 ml Output Total 875 ml Balance 685 ml Intake Oral 1260 ml IV Total 300 ml Output Urine Total 875 ml # Voids 3 Medications Current Medications Medications Dose Ordered Sig/Amador Route Start Time Stop Time Status Last Admin Dose Admin Furosemide 40 mg DAILY IV 11/24/24 10:00 11/24/24 08:47 40 MG Atorvastatin Calcium 40 mg HS PO 11/23/24 22:00 11/24/24 22:36 40 MG Hydralazine HCl 10 mg Q6HP PRN IV 11/23/24 21:00 Carvedilol 3.125 mg Q12HR PO 11/23/24 22:00 11/24/24 22:37 3.125 MG Famotidine 20 mg DAILY IV 11/24/24 10:00 11/24/24 08:47 20 MG Sodium Chloride 10 ml Q8HR IV 11/23/24 22:00 11/25/24 06:01 10 ML Acetaminophen/ Hydrocodone Bitart 1 tab Q4HP PRN PO 11/23/24 21:00 11/25/24 06:02 1 TAB Ondansetron HCl 4 mg Q4HP PRN IV 11/23/24 21:00 Docusate Sodium 100 mg BIDPRN PRN PO 11/23/24 21:00 Acetaminophen 650 mg Q6HP PRN PO 11/23/24 21:00 Ceftriaxone Sodium 50 ml @ 100 mls/hr DAILY@09 IV 11/24/24 09:00 11/24/24 08:46 100 MLS/HR Nitroglycerin 0.4 mg Q5MINP PRN SL 11/23/24 22:00 Morphine Sulfate 2 mg Q30M PRN IV 11/23/24 22:00 Aspirin 81 mg DAILY PO 11/24/24 10:00 11/24/24 08:47 81 MG Vancomycin HCl 0 ml @ 0 mls/hr UD IV 11/24/24 12:30 Vancomycin HCl 250 ml @ 200 mls/hr Q12H IV 11/25/24 00:00 Laboratory Results Laboratory Tests 11/24/24 14:00 Chemistry Test 11/24/24 11:45 11/25/24 05:42 Albumin 3.4 g/dL (3.2-4.8) Calcium Level 9.2 mg/dL (8.7-10.4) Pending Total Protein 6.5 g/dL (5.7-8.2) LFT Test 11/24/24 11:45 Alanine Aminotransferase (ALT) 14 U/L (7-40) Alkaline Phosphatase 40 U/L (46-116) L Aspartate Amino Transferase (AST) 62 U/L (13-40) H Total Bilirubin 0.7 mg/dL (0.2-1.0) Urinalysis Test 11/24/24 14:30 Urine Color Light-yellow (Yellow) Urine Clarity Turbid (Clear) H Urine pH 6.0 (5.0-9.0) Urine Specific [place] 1.006 (1.001-1.035) Urine Protein Negative (Negative) Urine Ketones Negative (Negative) Urine Blood Trace /uL (Negative) H Urine Nitrite Negative (Negative) Urine Bilirubin Negative (Negative) Urine Urobilinogen Normal mg/dL (Negative) Urine Leukocyte Esterase 3+ /uL (Negative) Urine RBC 8 /hpf (0 - 4) Urine WBC 242 /hpf (0 - 5) Urine Squamous Epithelial Cells Few /hpf (<5) Urine Bacteria Few /hpf (None Seen) H Urine Glucose Normal mg/dL (Normal) Microbiology Microbiology Date/Time Source Procedure Growth Status 11/23/24 17:17 Blood Blood Culture - Preliminary NO GROWTH AFTER 24 HOURS OF INCUBATION. Resulted Labs and/or images reviewed: Labs reviewed by me Assessment/Plan Assessment/Plan Sepsis with elevated white count secondary to urinary tract infection Blood cultures negative, urine cultures pending, continue Rocephin vancomycin Acute urinary tract infection Chronic rheumatoid arthritis bilateral knees: Tibial plateau fracture right knee with severe DJD changes: Consult for Dr. Shaikh pending Hypertension GERD Hypercholesterolemia History of recurrent urinary tract infections Large hiatal hernia History of recurrent falls at home: CT head negative Patient lives in [place] with her younger sister Ashlee [phone] who is at the bedside Chronic malnutrition Possible dementia Time spent 66 minutes Condition guarded Advanced care planning time 20 mts Plan discussed with: Patient My Orders Orders - KRISTIN PRAKASH MD Procedure Category Date Status Time Urine Bacterial LAURA 11/24/24 In Process Culture 12:17 Vancomycin Per PHA 11/24/24 In Process Pharmacy 12:30 Ct L Knee Wo Contrast CT 11/24/24 Resulted 12:29 Ct R Knee Wo Contrast CT 11/24/24 Resulted 12:29 * Rheumatology Consult CONS 11/24/24 Transmitted Head Without Contrast CT 11/24/24 Resulted 12:29 * Orthopedic Consult CONS 11/24/24 Transmitted 12:35 Cleanse Wound With SHELBY 11/24/24 In Process Mild Soap A 13:48 Vancomycin PHA 11/25/24 In Process 1.25gm/250ml 00:00 Vancomycin Per SHELBY 11/24/24 In Process Pharmacy Protoc 15:44 Basic Metabolic Panel LAB 11/25/24 In Process 04:00 Vancomycin,Trough LAB 11/25/24 Logged 23:00 Date of Service: Nov 25, 2024 Billing Provider: KRISTIN PRAKASH MD Common Visit Codes: [id number]-[id number] CARE 30-74 MIN KRISTIN PRAKASH MD Nov 25, 2024 08:18
[2024-11-25 09:12] LABS: Calcium 8.7 mg/dL (8.7-10.4); Potassium 3.3 mmol/L (3.5-5.1)
--- NOTE | 2024-11-25 13:14 | DVHINCON2 ---
Date of service: Nov 25, 2024 Reason for Consultation Bilateral knee pain/swelling History of Present Illness 73 yo F admitted for SOB/weakness with multiple weeks of BL knee pain. Patient h as issues for years on her knees but pain got worse over the last month. Minimal ambulator due to the pain. Past Medical History Hypertension, hyperlipidemia, GERD, arthritis, and UTIs Past Surgical History: Appendectomy, Cholecystectomy, Hernia Repair, Hysterectomy, Left-arm surgery Family History: Diabetes mellitus G8 MOTHER G8 FATHER FH: heart failure G8 MOTHER G8 FATHER FH: hypertension G8 MOTHER G8 FATHER Allergies: Coded Allergies: NO KNOWN ALLERGIES (Unverified , 08/19/16) Home Meds Active Scripts Tramadol Hcl (Tramadol Hcl) 50 Mg Tab, 50 MG PO Q8HPRN PRN for 5 Days, #15 TAB Prov:JODEE BAJWA NP 10/03/24 Diltiazem HCl (Diltiazem Hci ER) 120 Mg Tab, 120 MG PO DAILY for 30 Days, #30 TAB 1 Refill Prov:JODEE BAJWA NP 10/02/24 Lisinopril (Lisinopril) 20 Mg Tab, 1 TAB PO DAILY for 30 Days, #30 TAB 5 Refills Prov:SANTOS BAXTER RESIDENT 07/11/24 Pantoprazole Sodium Sesquihydr (Pantoprazole Sodium) 40 Mg Tab, 40 MG PO DAILY for 30 Days, #30 TAB Prov:SANTOS BAXTER RESIDENT 07/11/24 Ferrous Sulfate (Iron) 325 Mg Tab, 325 MG PO DAILY for 30 Days, #30 TAB Prov:SANTOS BAXTER RESIDENT 07/11/24 Atorvastatin Calcium (Lipitor) 40 Mg Tab, 1 TAB PO DAILY, #30 TAB 5 Refills Prov:DERIAN BLUM MD 06/12/24 Current Medications Current Medications Medications (Trade) Dose Ordered Sig/Amador Route PRN Reason Start Time Stop Time Status Last Admin Vancomycin HCl 250 ml @ 200 mls/hr Q12H IV 11/25/24 00:00 Review of Systems 10 point ROS as per HPI Vital Signs Vital Signs Date Time Temp Pulse Resp B/P (MAP) Pulse Ox O2 Delivery O2 Flow Rate FiO2 11/25/24 11:53 98 143/87 11/25/24 04:49 98.1 17 97 98.1 11/24/24 20:00 Room Air* 0 21 Physical Exam NAD obese BL LE: +TTP at knee knee ROM 0-95 pain lying comfortable in bed no real erythema Labs/Diagnostic Data Labs Test 11/25/24 05:42 11/24/24 14:30 11/24/24 14:00 11/24/24 11:45 Range/Units Sodium Level 140 136-145 mmol/L Potassium Level 3.3 L 3.5-5.1 mmol/L Chloride Level 103 98-107 mmol/L Carbon Dioxide Level 29 20-31 mmol/L Anion Gap 8 5-15 Blood Urea Nitrogen 12 9-23 mg/dL Creatinine 0.59 0.550-1.02 mg/dL Glomerular Filtration Rate Calc 96 >90 mL/min BUN/Creatinine Ratio 20.3 H 10.0-20.0 Serum Glucose 90 74-106 mg/dL Calcium Level 8.7 8.7-10.4 mg/dL Urine Color Light-yellow Yellow Urine Clarity Turbid H Clear Urine pH 6.0 5.0-9.0 Urine Specific [place] 1.006 1.001-1.035 Urine Protein Negative Negative Urine Ketones Negative Negative Urine Blood Trace H Negative /uL Urine Nitrite Negative Negative Urine Bilirubin Negative Negative Urine Urobilinogen Normal Negative mg/dL Urine Leukocyte Esterase 3+ Negative /uL Urine RBC 8 0 - 4 /hpf Urine WBC 242 0 - 5 /hpf Urine Squamous Epithelial Cells Few <5 /hpf Urine Bacteria Few H None Seen /hpf Urine Glucose Normal Normal mg/dL White Blood Count 14.3 H 4.4-10.8 10^3/uL Red Blood Count 5.01 4.0-5.20 10^6/uL Hemoglobin 9.6 L 12.2-16.2 g/dL Hematocrit 33.0 #L 36.0-46.0 % Mean Corpuscular Volume 65.9 #L 80.0-100.0 fL Mean Corpuscular Hemoglobin 19.2 L 28.0-32.0 pg Mean Corpuscular Hemoglobin Concent 29.1 L 32.0-36.0 g/dL Red Cell Distribution Width 20.3 H 11.8-14.3 % Platelet Count 320 140-450 10^3/uL Mean Platelet Volume 8.1 6.9-10.8 fL Neutrophils (%) (Auto) 77.8 37.0-80.0 % Lymphocytes (%) (Auto) 11.7 10.0-50.0 % Monocytes (%) (Auto) 8.3 0.0-12.0 % Eosinophils (%) (Auto) 1.2 0.0-7.0 % Basophils (%) (Auto) 1.0 0.0-2.0 % Neutrophils # (Auto) 11.2 H 1.6-8.6 10 ^3/uL Lymphocytes # (Auto) 1.7 0.4-5.4 10 ^3/uL Monocytes # (Auto) 1.2 0-1.3 10 ^3/uL Eosinophils # (Auto) 0.2 0-0.8 10 ^3/uL Basophils # (Auto) 0.1 0-0.2 10 ^3/uL Nucleated Red Blood Cells 0.0 % Erythrocyte Sedimentation Rate 11 0-20 mm/hr Total Bilirubin 0.7 0.2-1.0 mg/dL Aspartate Amino Transferase (AST) 62 H 13-40 U/L Alanine Aminotransferase (ALT) 14 7-40 U/L Alkaline Phosphatase 40 L 46-116 U/L C-Reactive Protein High Sensitivity 3.32 H <1.0 mg/dL Total Protein 6.5 5.7-8.2 g/dL Albumin 3.4 3.2-4.8 g/dL Test 11/23/24 21:47 11/23/24 20:01 11/23/24 18:42 Range/Units B-Type Natriuretic Peptide 181.33 0-100 pg/mL Platelet Estimate Adequate Hypochromasia (manual) Marked Anisocytosis (manual) Slight Microcytosis Marked Lactic Acid Level 2.0 0.4-2.0 mmol/L Microbiology Date/Time Source Procedure Growth Status 11/24/24 14:30 Voided Urine Urine Culture - Preliminary Resulted 11/23/24 17:17 Blood Blood Culture - Preliminary NO GROWTH AFTER 24 HOURS OF INCUBATION. Resulted Plan/Recommendation 73 yo F with severe BL knee arthritis - low suspicion of septic joint 1. WBAT 2. PT 3. pain control 4. follow up in [facility] ortho clinic as outpatient for injection therapy Plan discussed with: Patient JOSE MACKEY MD Nov 25, 2024 13:14
[2024-11-25] MEDS: VANCOMYCIN 1GM/250ML KIT 250 ML IV SCH (18:07)
--- NOTE | 2024-11-25 18:44 | DVHPN2 ---
Progress Note - Dictate Date Seen: Nov 25, 2024 Medical Necessity Reason Pt with a Central, PICC or Fol: Yes The following are medically ne: Morillo Catheter Reason for morillo catheter: Strict I&O Subjective Patient seen and examined at bedside. Breathing comfortably on room air. Overnight events reviewed. vital signs Vital Sign Date Time Temp Pulse Resp B/P (MAP) Pulse Ox O2 Delivery O2 Flow Rate FiO2 11/25/24 17:00 98.1 87 18 144/75 (98) 98 98.1 11/25/24 08:15 Room Air* 0 21 Total Intake and Output 11/24/24 11/24/24 11/25/24 15:00 23:00 07:00 Intake Total 50 ml 710 ml 800 ml Output Total 575 ml 300 ml Balance 50 ml 135 ml 500 ml medications Current Medications Medications Dose Ordered Sig/Amador Route Start Time Stop Time Status Last Admin Dose Admin Furosemide 40 mg DAILY IV 11/24/24 10:00 11/25/24 11:52 40 MG Atorvastatin Calcium 40 mg HS PO 11/23/24 22:00 11/24/24 22:36 40 MG Hydralazine HCl 10 mg Q6HP PRN IV 11/23/24 21:00 Carvedilol 3.125 mg Q12HR PO 11/23/24 22:00 11/25/24 11:53 3.125 MG Famotidine 20 mg DAILY IV 11/24/24 10:00 11/25/24 11:52 20 MG Sodium Chloride 10 ml Q8HR IV 11/23/24 22:00 11/25/24 14:03 10 ML Acetaminophen/ Hydrocodone Bitart 1 tab Q4HP PRN PO 11/23/24 21:00 11/25/24 12:22 1 TAB Ondansetron HCl 4 mg Q4HP PRN IV 11/23/24 21:00 Docusate Sodium 100 mg BIDPRN PRN PO 11/23/24 21:00 Acetaminophen 650 mg Q6HP PRN PO 11/23/24 21:00 Ceftriaxone Sodium 50 ml @ 100 mls/hr DAILY@09 IV 11/24/24 09:00 11/25/24 11:51 100 MLS/HR Nitroglycerin 0.4 mg Q5MINP PRN SL 11/23/24 22:00 Morphine Sulfate 2 mg Q30M PRN IV 11/23/24 22:00 Aspirin 81 mg DAILY PO 11/24/24 10:00 11/25/24 11:53 81 MG Vancomycin HCl 0 ml @ 0 mls/hr UD IV 11/24/24 12:30 Vancomycin HCl 250 ml @ 250 mls/hr Q10H IV 11/25/24 15:00 11/25/24 18:07 250 MLS/HR objective Gen.: Patient lying in bed in no apparent distress. Breathing on room air. Head: Normocephalic, atraumatic. Eyes: EOMI/PERRLA. Ears: Normal hearing. Normal anatomy. Neck/trachea: Trachea midline, supple. Nose: Normal external anatomy. Mouth: Moist mucous membranes. Chest: Decreased air entry bilaterally. No wheezing or rhonchi. Cardiovascular: Positive S1, positive S2. Regular rate and rhythm. Abdomen: Positive bowel sounds in all 4 quadrants. Soft, non-tender, non- distended. : Deferred. Rectal: Deferred. Skin: Warm, dry. Intact. Extremities: 2+ radial pulses bilaterally. No lower extremity edema. Neuro: Awake, alert, oriented x3. No gross motor or sensory deficits. Cranial nerves II through XII intact. Gait not assessed. laboratory and microbiology Laboratory Tests 11/25/24 05:42 11/24/24 14:00 Test 11/25/24 05:42 Range/Units Serum Glucose 90 74-106 mg/dL Assessment/Plan Impression: Acute on chronic diastolic CHF Morbid obesity, BMI 47 Left pleural effusion Atelectasis Leukocytosis Anemia Generalized weakness. Events: Breathing on room air No respiratory distress. Continue antibiotics Incentive spirometry Diurese to euvolemia w/ Lasix Monitor renal function. Monitor electrolytes. Supplement as necessary. Morillo for strict ins and outs Knee fracture - pt to follow up with Rheumatology and Ortho Pain control Avoid oversedation Pepcid for GI prophylaxis Labs and imaging reviewed. Rest of plan as noted below. Plan: Supplemental oxygen PRN Titrate to keep O2 sats above 92%. Continue antibiotics Incentive spirometry Diurese to euvolemia w/ Lasix Monitor renal function. Monitor electrolytes. Supplement as necessary. Monitor ins and outs. Leukocytosis - Monitor WBC Pain control Avoid oversedation Diet and lifestyle modifications for weight reduction Morbid obesity - complicates all care GI prophylaxis - Pepcid DVT prophylaxis. Prognosis: Poor given patient's multiple co-morbidities. Rest of plan per hospitalist and other consultants. Thank you, Jean Apodaca NP, for allowing me to participate in this patient's care. Further recommendations will depend on the patient's clinical course. Please do not hesitate to contact me if you have any questions or concerns. This medical document was created using an electronic medical record system with [employer] dictation system. Although these documentations are being carefully reviewed, there may still be some phonetic and typographical changes. The errors are purely typographical, due to imperfection on the software program, and do not reflect any compromise in the patient's medical care. Dietary Evaluation Review Comments: PO intake 2 75% today, Refusing to eat is resolved. encourage physical activities when medically permissible. Avoid over-eating for weight control. Expected Outcomes/Goals: gradual wt loss. Plan discussed with: Patient, Other (MACEY Ortega) FEDERICO STOLL MD Nov 25, 2024 18:44
[2024-11-26 01:00] VITALS: BP 141/67; PULSE 87; RESP 20; TEMP 98; O2SAT 97
[2024-11-26 05:00] VITALS: BP 139/71; PULSE 88; RESP 20; TEMP 97.9; O2SAT 98
[2024-11-26 07:58] LABS: COVID19 ANTIGEN SOFIA FIA NEGATIVE (NEGATIVE)
[2024-11-26 07:59] LABS: Rapid Influenza A Negative (Negative); Rapid Influenza B Negative (Negative)
[2024-11-26 08:15] VITALS: PULSE 88
--- NOTE | 2024-11-26 08:15 | DVHPN2 ---
Reviewed: Care Plan, H&P, Labs, Medications, Previous Orders, Radiology Changes from previous H/P or p: No Changes Eyes: No Pain, No Vision change, No Conjunctivae inflammation, No Eyelid inflammation, No Other, No Redness ENT: No Ear pain, No Ear discharge, No Nose pain, No Nose discharge, No Nose congestion, No Mouth pain, No Mouth swelling, No Throat pain, No Throat swelling, No Other Cardiovascular: No Chest Pain, No Palpitations, No Orthopnea, No Paroxysmal Noc. Dyspnea, No Edema, No Lt Headedness, No Other Respiratory: No Cough, No Dry, No Shortness of breath, No SOB with excertion, No Wheezing, No Hemoptysis, No Pleuritic Pain, No Sputum, No Other Gastrointestinal: No Nausea, No Vomiting, No Abdominal Pain, No Diarrhea, No Constipation, No Melena, No Hematochezia, No Other Genitourinary: No Dysuria, No Frequency, No Incontinence, No Hematuria, No Retention, No Other Musculoskeletal: other (bilateral knee pain and swelling.); No neck pain, No shoulder pain, No arm pain, No back pain, No hand pain, No leg pain, No foot pain Skin: No Rash, No Lesions, No Jaundice, No Bruising, No Other Objective Vitals Vital Signs Date Time Temp Pulse Resp B/P (MAP) Pulse Ox O2 Delivery O2 Flow Rate FiO2 11/26/24 05:00 97.9 88 20 139/71 (93) 98 97.9 11/25/24 20:00 Room Air* 0 21 Intake/Output Intake and Output 11/26/24 07:00 Intake Total 2800 ml Output Total 3250 ml Balance -450 ml Intake Oral 2250 ml IV Total 550 ml Output Urine Total 3250 ml # Voids 4 Medications Current Medications Medications Dose Ordered Sig/Amador Route Start Time Stop Time Status Last Admin Dose Admin Furosemide 40 mg DAILY IV 11/24/24 10:00 11/25/24 11:52 40 MG Atorvastatin Calcium 40 mg HS PO 11/23/24 22:00 11/25/24 21:30 40 MG Hydralazine HCl 10 mg Q6HP PRN IV 11/23/24 21:00 Carvedilol 3.125 mg Q12HR PO 11/23/24 22:00 11/25/24 21:29 3.125 MG Famotidine 20 mg DAILY IV 11/24/24 10:00 11/25/24 11:52 20 MG Sodium Chloride 10 ml Q8HR IV 11/23/24 22:00 11/26/24 06:00 10 ML Acetaminophen/ Hydrocodone Bitart 1 tab Q4HP PRN PO 11/23/24 21:00 11/25/24 21:30 1 TAB Ondansetron HCl 4 mg Q4HP PRN IV 11/23/24 21:00 Docusate Sodium 100 mg BIDPRN PRN PO 11/23/24 21:00 Acetaminophen 650 mg Q6HP PRN PO 11/23/24 21:00 Ceftriaxone Sodium 50 ml @ 100 mls/hr DAILY@09 IV 11/24/24 09:00 11/25/24 11:51 100 MLS/HR Nitroglycerin 0.4 mg Q5MINP PRN SL 11/23/24 22:00 Morphine Sulfate 2 mg Q30M PRN IV 11/23/24 22:00 Aspirin 81 mg DAILY PO 11/24/24 10:00 11/25/24 11:53 81 MG Vancomycin HCl 0 ml @ 0 mls/hr UD IV 11/24/24 12:30 Vancomycin HCl 250 ml @ 250 mls/hr Q10H IV 11/25/24 15:00 11/26/24 01:06 250 MLS/HR Laboratory Results Laboratory Tests 11/24/24 14:00 11/25/24 05:42 Urinalysis Test 11/24/24 14:30 Urine Color Light-yellow (Yellow) Urine Clarity Turbid (Clear) H Urine pH 6.0 (5.0-9.0) Urine Specific Adel 1.006 (1.001-1.035) Urine Protein Negative (Negative) Urine Ketones Negative (Negative) Urine Blood Trace /uL (Negative) H Urine Nitrite Negative (Negative) Urine Bilirubin Negative (Negative) Urine Urobilinogen Normal mg/dL (Negative) Urine Leukocyte Esterase 3+ /uL (Negative) Urine RBC 8 /hpf (0 - 4) Urine WBC 242 /hpf (0 - 5) Urine Squamous Epithelial Cells Few /hpf (<5) Urine Bacteria Few /hpf (None Seen) H Urine Glucose Normal mg/dL (Normal) Microbiology Microbiology Date/Time Source Procedure Growth Status 11/24/24 14:30 Voided Urine Urine Culture - Preliminary Resulted 11/23/24 17:17 Blood Blood Culture - Preliminary NO GROWTH AFTER 48 HOURS OF INCUBATION. Resulted Labs and/or images reviewed: Labs reviewed by me, Image(s) reviewed by me Assessment/Plan Assessment/Plan Sepsis with elevated white count secondary to urinary tract infection Blood cultures negative, urine cultures negative continue Rocephin vancomycin Acute urinary tract infection Chronic rheumatoid arthritis bilateral knees: Bilateral severe knee arthritis: Unlikely to be septic, ortho consult by Dr. Shaikh appreciated, advised weight-bearing as tolerated and outpatient ortho follow up for injection therapy Hypertension GERD Hypercholesterolemia History of recurrent urinary tract infections Large hiatal hernia History of recurrent falls at home: CT head negative Chronic malnutrition Possible dementia Time spent 45 minutes Plan discussed with: Patient My Orders Orders - KRISTIN PRAKASH MD Procedure Category Date Status Time Pt Request For Service PT 11/25/24 Logged 08:20 * Picc Line Consult CONS 11/25/24 Transmitted 11:57 Vancomycin 1gm/250ml PHA 11/25/24 In Process Kit 15:00 Vancomycin Per SHELBY 11/26/24 In Process Pharmacy Protoc 11:00 Vancomycin,Trough LAB 11/26/24 Logged 10:00 PTPTT LAB 11/26/24 Logged 07:59 Date of Service: Nov 26, 2024 Billing Provider: KRISTIN PRAKASH MD Common Visit Codes: [id number] INP/OBS CARE(HIGH) KRISTIN PRAKASH MD Nov 26, 2024 08:15
--- NOTE | 2024-11-26 08:25 | DVHDS2 ---
Discharge Summary Date of Admission Nov 23, 2024 at 21:56 Date of Discharge: Nov 26, 2024 Admitting Diagnosis Generalized weakness and altered mental status and bilateral knee pain Wounds: None Labs/Diagnostic Data: Laboratory Results Test 11/26/24 06:29 11/25/24 05:42 11/24/24 14:30 11/24/24 14:00 Influenza Type A Antigen Negative (Negative) Influenza Type B Antigen Negative (Negative) SARS-CoV-2 Antigen (Rapid) Negative (NEGATIVE) Sodium Level 140 mmol/L (136-145) Potassium Level 3.3 mmol/L (3.5-5.1) Chloride Level 103 mmol/L (98-107) Carbon Dioxide Level 29 mmol/L (20-31) Anion Gap 8 (5-15) Blood Urea Nitrogen 12 mg/dL (9-23) Creatinine 0.59 mg/dL (0.550-1.02) Glomerular Filtration Rate Calc 96 mL/min (>90) BUN/Creatinine Ratio 20.3 (10.0-20.0) Serum Glucose 90 mg/dL (74-106) Calcium Level 8.7 mg/dL (8.7-10.4) Urine Color Light-yellow (Yellow) Urine Clarity Turbid (Clear) Urine pH 6.0 (5.0-9.0) Urine Specific Chaplin 1.006 (1.001-1.035) Urine Protein Negative (Negative) Urine Ketones Negative (Negative) Urine Blood Trace /uL (Negative) Urine Nitrite Negative (Negative) Urine Bilirubin Negative (Negative) Urine Urobilinogen Normal mg/dL (Negative) Urine Leukocyte Esterase 3+ /uL (Negative) Urine RBC 8 /hpf (0 - 4) Urine WBC 242 /hpf (0 - 5) Urine Squamous Epithelial Cells Few /hpf (<5) Urine Bacteria Few /hpf (None Seen) Urine Glucose Normal mg/dL (Normal) White Blood Count 14.3 10^3/uL (4.4-10.8) Red Blood Count 5.01 10^6/uL (4.0-5.20) Hemoglobin 9.6 g/dL (12.2-16.2) Hematocrit 33.0 % (36.0-46.0) Mean Corpuscular Volume 65.9 fL (80.0-100.0) Mean Corpuscular Hemoglobin 19.2 pg (28.0-32.0) Mean Corpuscular Hemoglobin Concent 29.1 g/dL (32.0-36.0) Red Cell Distribution Width 20.3 % (11.8-14.3) Platelet Count 320 10^3/uL (140-450) Mean Platelet Volume 8.1 fL (6.9-10.8) Neutrophils (%) (Auto) 77.8 % (37.0-80.0) Lymphocytes (%) (Auto) 11.7 % (10.0-50.0) Monocytes (%) (Auto) 8.3 % (0.0-12.0) Eosinophils (%) (Auto) 1.2 % (0.0-7.0) Basophils (%) (Auto) 1.0 % (0.0-2.0) Neutrophils # (Auto) 11.2 10 ^3/uL (1.6-8.6) Lymphocytes # (Auto) 1.7 10 ^3/uL (0.4-5.4) Monocytes # (Auto) 1.2 10 ^3/uL (0-1.3) Eosinophils # (Auto) 0.2 10 ^3/uL (0-0.8) Basophils # (Auto) 0.1 10 ^3/uL (0-0.2) Nucleated Red Blood Cells 0.0 % Erythrocyte Sedimentation Rate 11 mm/hr (0-20) Test 11/24/24 11:45 11/23/24 21:47 11/23/24 20:01 11/23/24 18:42 Total Bilirubin 0.7 mg/dL (0.2-1.0) Aspartate Amino Transferase (AST) 62 U/L (13-40) Alanine Aminotransferase (ALT) 14 U/L (7-40) Alkaline Phosphatase 40 U/L (46-116) C-Reactive Protein High Sensitivity 3.32 mg/dL (<1.0) Total Protein 6.5 g/dL (5.7-8.2) Albumin 3.4 g/dL (3.2-4.8) B-Type Natriuretic Peptide 181.33 pg/mL (0-100) Platelet Estimate Adequate Hypochromasia (manual) Marked Anisocytosis (manual) Slight Microcytosis Marked Lactic Acid Level 2.0 mmol/L (0.4-2.0) Other Laboratory Tests 11/25/24 05:42 11/24/24 14:00 Brief Hx & Hospital Course: 73-year-old female with a history of hypertension hypercholesterolemia GERD recurrent urinary tract infections ideal hernia frequent admissions recurrent falls at home brought into the ER for altered mental status generalized weakness and confusion found to have sepsis secondary to urinary tract infection blood cultures came negative started on Rocephin and vancomycin urine cultures came negative but the patient has improved with the antibiotics which will be continued for two more weeks. Patient complained of pain bilateral knees history of rheumatoid arthritis CT of the knee showed bilateral severe arthritis seen by orthopedic Dr Shaikh advised nonweightbearing and outpatient follow up for injection therapy. Patient is being discharged to longterm facility to receive Rocephin 1 g IV daily for two weeks and vancomycin 1 g IV daily for two weeks Patient's sister Ashlee [phone] who is also her caregiver is at bedside and plan is acceptable to her. Consults/Reason for consult Orthopedic Dr Shaikh Operations or Procedures CT of the knees Condition at Discharge: Fair Final Diagnosis/Problems List Sepsis with elevated white count secondary to urinary tract infection Blood cultures negative, urine cultures negative continue Rocephin vancomycin Acute urinary tract infection Chronic rheumatoid arthritis bilateral knees: Bilateral severe knee arthritis: Unlikely to be septic, ortho consult by Dr. Shaikh appreciated, advised weight-bearing as tolerated and outpatient ortho follow up for injection therapy Hypertension GERD Hypercholesterolemia History of recurrent urinary tract infections Large hiatal hernia History of recurrent falls at home: CT head negative Chronic malnutrition Possible dementia Discharge Disposition: Group Home Facility Discharge Instruct/Medications Diet: Cardiac 2g Na,low cholest Activity: Light activity Follow Up/Referral: Follow up with the [facility] Medications: Rocephin 1 g IV daily for two weeks Vancomycin 1 g IV daily for two weeks see list for other meds 39 (Time taken for discharge summary 39 minutes) Discharge Statement: "Patient was advised to return to the ER or call 911 if any headaches, dizziness, shortness of breath, chest pain, abdominal pain, bleeding, fevers, or worsening of medical condition. Patient was counseled about treatment plan, medications, possible side effects, patientverbalized understanding. All questions were answered to the best of my ability. This discharge took greater then 30 minutes in planning, reviewing documentation, counseling the patient, and discussing with other team members." ASSESSMENT ASSESSMENT Hospital Course Marginally improved Assessment Sepsis with elevated white count secondary to urinary tract infection Blood cultures negative, urine cultures negative continue Rocephin vancomycin Acute urinary tract infection Chronic rheumatoid arthritis bilateral knees: Bilateral severe knee arthritis: Unlikely to be septic, ortho consult by Dr. Shaikh appreciated, advised weight-bearing as tolerated and outpatient ortho follow up for injection therapy Hypertension GERD Hypercholesterolemia History of recurrent urinary tract infections Large hiatal hernia History of recurrent falls at home: CT head negative Chronic malnutrition Possible dementia Date of Service: Nov 26, 2024 Billing Provider: KRISTIN PRAKASH MD Common Visit Codes: 55828-KIU/OBS DISCH DAY >30min KRISTIN PRAKASH MD Nov 26, 2024 08:25
[2024-11-26 09:00] VITALS: BP 152/68; PULSE 91; RESP 14; TEMP 98.3; O2SAT 95
[2024-11-26 09:16] LABS: INR 1.14 (0.9-1.15); Partial Thromboplastin Time 26.5 SEC (24.5-34.5)
[2024-11-26 13:00] VITALS: BP 145/66; PULSE 86; RESP 18; TEMP 97.9; O2SAT 99
[2024-11-26] MEDS ORDERED: LIDOCAINE 1% (LOCAL ANESTH.) PF 5ml SDV ID ONE (13:00)
[2024-11-26 16:52] VITALS: BP 137/62; PULSE 91; RESP 18; TEMP 98; O2SAT 97
--- NOTE | 2024-11-26 21:13 | DVHPN2 ---
Progress Note - Dictate Date Seen: Nov 26, 2024 Medical Necessity Reason Pt with a Central, PICC or Fol: Yes The following are medically ne: Morillo Catheter Reason for morillo catheter: Strict I&O Subjective Patient seen and examined at bedside. Breathing comfortably on room air. Overnight events reviewed. vital signs Vital Sign Date Time Temp Pulse Resp B/P (MAP) Pulse Ox O2 Delivery O2 Flow Rate FiO2 11/26/24 16:52 98.0 91 18 137/62 (87) 97 98.0 11/26/24 08:15 Room Air* 0 21 Total Intake and Output 11/25/24 11/25/24 11/26/24 15:00 23:00 07:00 Intake Total 400 ml 950 ml 1450 ml Output Total 3250 ml Balance 400 ml -2300 ml 1450 ml objective Gen.: Patient lying in bed in no apparent distress. Breathing on room air. Head: Normocephalic, atraumatic. Eyes: EOMI/PERRLA. Ears: Normal hearing. Normal anatomy. Neck/trachea: Trachea midline, supple. Nose: Normal external anatomy. Mouth: Moist mucous membranes. Chest: Decreased air entry bilaterally. No wheezing or rhonchi. Cardiovascular: Positive S1, positive S2. Regular rate and rhythm. Abdomen: Positive bowel sounds in all 4 quadrants. Soft, non-tender, non- distended. : Deferred. Rectal: Deferred. Skin: Warm, dry. Intact. Extremities: 2+ radial pulses bilaterally. No lower extremity edema. Neuro: Awake, alert, oriented x3. No gross motor or sensory deficits. Cranial nerves II through XII intact. Gait not assessed. laboratory and microbiology Laboratory Tests 11/25/24 05:42 11/24/24 14:00 Test 11/25/24 05:42 Range/Units Serum Glucose 90 74-106 mg/dL Assessment/Plan Impression: Acute on chronic diastolic CHF Morbid obesity, BMI 47 Left pleural effusion Atelectasis Leukocytosis Anemia Generalized weakness. Events: Breathing on room air No respiratory distress. Continue antibiotics Incentive spirometry Diurese to euvolemia w/ Lasix Monitor renal function. Monitor electrolytes. Supplement as necessary. Morillo for strict ins and outs Knee fracture - pt to follow up with Rheumatology and Ortho Pain control Avoid oversedation Pepcid for GI prophylaxis Patient is stable for discharge from pulmonary standpoint Labs and imaging reviewed. Rest of plan as noted below. Plan: Supplemental oxygen PRN Titrate to keep O2 sats above 92%. Continue antibiotics Incentive spirometry Diurese to euvolemia w/ Lasix Monitor renal function. Monitor electrolytes. Supplement as necessary. Monitor ins and outs. Leukocytosis - Monitor WBC Pain control Avoid oversedation Diet and lifestyle modifications for weight reduction Morbid obesity - complicates all care GI prophylaxis - Pepcid DVT prophylaxis. Prognosis: Poor given patient's multiple co-morbidities. Rest of plan per hospitalist and other consultants. Thank you, Jean Apodaca NP, for allowing me to participate in this patient's care. Further recommendations will depend on the patient's clinical course. Please do not hesitate to contact me if you have any questions or concerns. This medical document was created using an electronic medical record system with [employer] dictation system. Although these documentations are being carefully reviewed, there may still be some phonetic and typographical changes. The errors are purely typographical, due to imperfection on the software program, and do not reflect any compromise in the patient's medical care. Dietary Evaluation Review Comments: PO intake 2 75% today, Refusing to eat is resolved. encourage physical activities when medically permissible. Avoid over-eating for weight control. Expected Outcomes/Goals: gradual wt loss. Plan discussed with: Patient, Other (MACEY Hicks) FEDERICO STOLL MD Nov 26, 2024 21:13
[2024-11-26] MEDS ORDERED: SODIUM CHLOR 0.9% PF (SALINE LOCK) 10ML VIAL/SYR IV SCH (22:00)
== END 2024-11-26 19:25 | DRG 871 ==
LOC: EDUNIT# 15:56 → ER 15:56 → EDBD 15:56 → TELE 21:56 → TELE-CENTR 23:43
PROVIDERS: ADMIT Nurse Practitioner Family; ATTEND Family Medicine
PROC: 02HV33Z Insertion of Infusion Device into Superior Vena Cava, Percutaneous Approach (ICD-10-PCS; principal; 2024-11-26)
PROC: B548ZZA Ultrasonography of Superior Vena Cava, Guidance (ICD-10-PCS; 2024-11-26)
DX: A41.9 Sepsis, unspecified organism (principal); I50.33 Acute on chronic diastolic (congestive) heart failure; J98.11 Atelectasis; Z68.42 Body mass index [BMI] 45.0-49.9, adult; E46 Unspecified protein-calorie malnutrition; N39.0 Urinary tract infection, site not specified; Z20.822 Contact with and (suspected) exposure to COVID-19; K21.9 Gastro-esophageal reflux disease without esophagitis; I11.0 Hypertensive heart disease with heart failure; E66.01 Morbid (severe) obesity due to excess calories; M06.9 Rheumatoid arthritis, unspecified; E78.00 Pure hypercholesterolemia, unspecified; K44.9 Diaphragmatic hernia without obstruction or gangrene; D64.9 Anemia, unspecified; Z90.49 Acquired absence of other specified parts of digestive tract; Z83.3 Family history of diabetes mellitus; Z80.9 Family history of malignant neoplasm, unspecified; Z82.49 Family history of ischemic heart disease and other diseases of the circulatory system; Z90.710 Acquired absence of both cervix and uterus
CPT/HCPCS: 36415; 36569; 70450; 71045; 73700; 80048; 80053; 80202; 81001; 83605; 83880; 85025; 85610; 85652; 85730; 86141; 87040; 87086; 87426; 87804; 97163; 99291; G0378; J3490